=== PATIENT | female | born 1970 | race Caucasian/White ===

== ENCOUNTER 2021-11-29 09:44 | Emergency (ER) | payer OTHER ==
[~2021-11-29] VITALS: Ht 149.9 cm; Wt 81.7 kg
[2021-11-29] MEDS ORDERED: LEVSOD100 PO (10:58)
[2021-11-29] MEDS ORDERED: FLUT1DIS5 INH (10:58)
[2021-11-29] MEDS ORDERED: HYDR10 PO (10:58)
[2021-11-29] MEDS ORDERED: Flonase 0.05% N16 GM (10:58)
[2021-11-29] MEDS ORDERED: GABA300 PO (10:59)
[2021-11-29] MEDS ORDERED: SUCR1 PO (10:59)
[2021-11-29] MEDS ORDERED: Budeprion Xl300 MG PO (10:59)
[2021-11-29] MEDS ORDERED: MONT10T PO (10:59)
[2021-11-29] MEDS ORDERED: BASAGLAR K100 UNIT/1 SC (10:59)
[2021-11-29] MEDS ORDERED: POTCHL20ER PO (11:00)
[2021-11-29] MEDS ORDERED: METO50 PO (11:00)
[2021-11-29] MEDS ORDERED: MAGCHL64ER PO (11:01)
[2021-11-29] MEDS ORDERED: SENNA LAXATIVE8.6 MG PO (11:01)
[2021-11-29] MEDS ORDERED: ATOR80 PO (11:01)
[2021-11-29] MEDS ORDERED: HUMALOG KW100 UNIT/1 SC (11:02)
[2021-11-29] MEDS ORDERED: LIOT5 PO (11:02)
[2021-11-29] MEDS ORDERED: METCAR750 PO (11:02)
[2021-11-29] MEDS ORDERED: DULO30 PO (11:03)
[2021-11-29] MEDS ORDERED: AMIT25 PO (11:03)
[2021-11-29] MEDS ORDERED: DERMACINRX FOL1 EAC2 PO (11:03)
[2021-11-29] MEDS ORDERED: OMEP20ER PO (11:04)
[2021-11-29] MEDS ORDERED: LOSA50 PO (11:04)
[2021-11-29] MEDS ORDERED: TORSE20 PO (11:04)
[2021-11-29] MEDS ORDERED: ALBU90OI INH (11:04)
[2021-11-29] MEDS ORDERED: AMLO5 PO (11:04)
[2021-11-29] MEDS ORDERED: ESTRADIOL BENZOA PO (11:05)
[2021-11-29] MEDS ORDERED: QVAR REDIHALE10.6 G3 INH (11:05)
[2021-11-29] MEDS ORDERED: HYDACE10B PO (13:35)
== END 2021-11-29 15:23 | disposition home or self-care (01) ==
LOC: ER 09:44
DX: S32.019A Unspecified fracture of first lumbar vertebra, initial encounter for closed fracture (principal); V43.53XA Car driver injured in collision with pick-up truck in traffic accident, initial encounter; Z88.0 Allergy status to penicillin; Z88.5 Allergy status to narcotic agent; Z88.8 Allergy status to other drugs, medicaments and biological substances; E11.9 Type 2 diabetes mellitus without complications; I50.9 Heart failure, unspecified
CPT/HCPCS: 72128; 72131; 72148; 72170; 96374; 96375; 96376; 99285-25; A9270; J1170; J2270; J2405; J3360

== ENCOUNTER 2021-12-23 20:05 | Emergency (ER) | payer OTHER ==
[~2021-12-23] VITALS: Ht 149.9 cm; Wt 72.6 kg
[~2021-12-23 20:05] MED LIST: ALBU90OI INH; AMIT25 PO; AMLO5 PO; ATOR80 PO; BASAGLAR K100 UNIT/1 SC; Budeprion Xl300 MG PO; DERMACINRX FOL1 EAC2 PO; DULO30 PO; ESTRADIOL BENZOA PO; FLUT1DIS5 INH; Flonase 0.05% N16 GM; GABA300 PO; HUMALOG KW100 UNIT/1 SC; HYDACE10B PO; HYDR10 PO; LEVSOD100 PO; LIOT5 PO; LOSA50 PO; MAGCHL64ER PO; METCAR750 PO; METO50 PO; MONT10T PO; OMEP20ER PO; POTCHL20ER PO; QVAR REDIHALE10.6 G3 INH; SENNA LAXATIVE8.6 MG PO; SUCR1 PO; TORSE20 PO
[2021-12-23 21:21] LABS: BASOPHILS ABSOLUTE AUTO 0.14 K/mm3 (0.00-0.23); BASOPHILS PERCENT AUTO 1 % (0-2); EOSINOPHILS ABSOLUTE AUTO 0.38 K/mm3 (0.00-0.68); EOSINOPHILS PERCENT AUTO 4 % (0-6); Hematocrit 38.1 % (33.0-51.0); Hemoglobin 12.9 g/dL (11.5-16.0); IMMATURE GRAN ABSOLUTE AUTO 0.04 K/mm3 (0.00-0.10); IMMATURE GRAN PERCENT AUTO 0 % (0-1); LYMPHOCYTES ABSOLUTE AUTO 1.48 K/mm3 (0.84-5.20); LYMPHOCYTES PERCENT AUTO 14 % (21-46); MONOCYTES ABSOLUTE AUTO 0.36 K/mm3 (0.16-1.47); MONOCYTES PERCENT AUTO 3 % (4-13); Mean Corpuscular HGB 30.6 pg (26.0-34.0); Mean Corpuscular HGB Conc 33.9 g/dL (31.5-36.5); Mean Corpuscular Volume 90 fL (80-100); Mean Platelet Volume 9.7 fL (9.1-12.4); NEUTROPHILS ABSOLUTE AUTO 8.41 K/mm3 (1.96-9.15); NEUTROPHILS PERCENT AUTO 78 % (41-73); Platelet Count 245 K/mm3 (150-400); RDW Coefficient Variation 15.1 % (11.7-14.2); RDW Standard Deviation 49.1 fL (35.1-46.3); Red Blood Cell Count 4.22 M/mm3 (3.80-5.20); White Blood Cell Count 10.81 K/mm3 (4.00-11.30)
[2021-12-23 21:39] LABS: Alanine Aminotransfer (ALT/SGP 21 U/L (12-78); Albumin, Blood 3.3 g/dL (3.4-5.0); Albumin/Globulin Ratio 0.8 (0.8-1.8); Alk Phos 143 U/L (50-136); Anion Gap 7 mmol/L (6-16); Aspartate Aminotrans (AST/SGOT 11 U/L (12-37); Bilirubin, Total 0.5 mg/dL (0.1-1.0); Blood Urea Nitrogen 25 mg/dL (8-24); Bun/Creatinine Ratio 33.2 (12.0-20.0); CO2, Blood 28 mmol/L (21-32); Calcium, Blood 8.8 mg/dL (8.5-10.1); Chloride, Blood 102 mmol/L (98-108); Creatinine, Blood 0.75 mg/dL (0.40-1.00); Globulin, Blood 4.3 g/dL (2.2-4.0); Glomerular Filtration Rate >60 (60-); Glucose, Blood 243 mg/dL (70-99); Sodium, Blood 137 mmol/L (136-145); Total Protein, Blood 7.6 g/dL (6.4-8.2)
[2021-12-24 01:23] LABS: Influenza A, PCR NEGATIVE (NEGATIVE); Influenza B, PCR NEGATIVE (NEGATIVE); Resp Syncytial Virus, PCR NEGATIVE (NEGATIVE); SARS-Cov-2 (COVID-19) PCR, MMC NEGATIVE (NEGATIVE)
[2021-12-24] MEDS ORDERED: METO10 PO (01:40)
== END 2021-12-24 02:13 | disposition home or self-care (01) ==
LOC: ER 20:05
PROVIDERS: Physician Assistant; Student in an Organized Health Care Education/Training Program
DX: B34.9 Viral infection, unspecified (principal); E11.65 Type 2 diabetes mellitus with hyperglycemia; M54.50 Low back pain, unspecified; G89.29 Other chronic pain; R10.9 Unspecified abdominal pain; I50.9 Heart failure, unspecified; Z88.0 Allergy status to penicillin; Z88.5 Allergy status to narcotic agent; Z88.8 Allergy status to other drugs, medicaments and biological substances; Z79.899 Other long term (current) drug therapy; Z79.4 Long term (current) use of insulin
CPT/HCPCS: 0241U; 36415; 70450; 71045; 74177; 80053; 83690; 83880; 84484; 85025; 93005; 93010; 96365; 96375; 99285-25; A9270; J1885; J2765; J3475; Q9967

== ENCOUNTER → 2022-04-20 | Outpatient (CLI) | payer OTHER ==
[~2022-04-20] MED LIST changes: +METO10 PO
[2022-04-21 12:14] LABS: Candida species (DNA Probe) Positive (NEGATIVE); G. vaginalis (DNA Probe) Negative (NEGATIVE); T. vaginalis (DNA Probe) Negative (NEGATIVE)
== END | disposition home or self-care (01) ==
LOC: LAB SHORT 13:23 → LAB 13:23
PROVIDERS: Nurse Practitioner Family
DX: N89.8 Other specified noninflammatory disorders of vagina (principal); R30.9 Painful micturition, unspecified
CPT/HCPCS: 87086; 87480; 87510; 87660

== ENCOUNTER 2022-10-05 09:52 | Inpatient (IN) | payer OTHER ==
[~2022-10-05] VITALS: Ht 149.9 cm; Wt 95.5 kg
[2022-10-05 10:49] LABS: Base Excess Venous 1.6 mmol/L; Bicarbonate Venous 24.7 mmol/L (24.0-30.0); PCO2 Venous 39.3 mmHg (38-42); pH Blood Venous 7.43 (7.34-7.37)
[2022-10-05 11:10] LABS: BASOPHILS ABSOLUTE AUTO 0.13 K/mm3 (0.00-0.23); BASOPHILS PERCENT AUTO 1 % (0-2); EOSINOPHILS ABSOLUTE AUTO 0.77 K/mm3 (0.00-0.68); EOSINOPHILS PERCENT AUTO 7 % (0-6); Hematocrit 42.8 % (33.0-51.0); Hemoglobin 14.9 g/dL (11.5-16.0); IMMATURE GRAN ABSOLUTE AUTO 0.05 K/mm3 (0.00-0.10); IMMATURE GRAN PERCENT AUTO 1 % (0-1); LYMPHOCYTES ABSOLUTE AUTO 2.53 K/mm3 (0.84-5.20); LYMPHOCYTES PERCENT AUTO 23 % (21-46); MONOCYTES ABSOLUTE AUTO 0.54 K/mm3 (0.16-1.47); MONOCYTES PERCENT AUTO 5 % (4-13); Mean Corpuscular HGB 29.5 pg (26.0-34.0); Mean Corpuscular HGB Conc 34.8 g/dL (31.5-36.5); Mean Corpuscular Volume 85 fL (80-100); Mean Platelet Volume 9.7 fL (9.1-12.4); NEUTROPHILS ABSOLUTE AUTO 7.07 K/mm3 (1.96-9.15); NEUTROPHILS PERCENT AUTO 64 % (41-73); Platelet Count 264 K/mm3 (150-400); RDW Coefficient Variation 13.6 % (11.7-14.2); RDW Standard Deviation 41.8 fL (35.1-46.3); Red Blood Cell Count 5.05 M/mm3 (3.80-5.20); White Blood Cell Count 11.09 K/mm3 (4.00-11.30)
[2022-10-05 11:14] LABS: Albumin, Blood 2.9 g/dL (3.4-5.0); Albumin/Globulin Ratio 0.6 (0.8-1.8); Bilirubin, Total 0.4 mg/dL (0.1-1.0); Creatinine, Blood 0.5 mg/dL (0.40-1.00); Globulin, Blood 4.6 g/dL (2.2-4.0); Potassium, Blood 4.6 mmol/L (3.5-5.5); Total Protein, Blood 7.5 g/dL (6.4-8.2)
[2022-10-05 12:29] LABS: Influenza A, PCR NEGATIVE (NEGATIVE); Influenza B, PCR NEGATIVE (NEGATIVE); Resp Syncytial Virus, PCR NEGATIVE (NEGATIVE); SARS-Cov-2 (COVID-19) PCR, MMC NEGATIVE (NEGATIVE)
[2022-10-05 15:44] LABS: PCO2 Arterial 20.7 mmHg (35-45); PO2 Arterial 104 mmHg (80-100); pH Blood Arterial 7.52 (7.35-7.45)
[2022-10-05] MEDS ORDERED: BASAGLAR K100 UNIT/1 SC (16:24)
[2022-10-05] MEDS ORDERED: ALOGLIPTIN25 M7 PO (16:25)
--- NOTE | 2022-10-05 17:48 | NUR ---
PCU ADMIT / END OF SHIFT NOTE PT BROUGHT TO PCU-12 BY KAELA FROM ER @ APPROX 1600. PT SLID OVER FROM [facility] TO PCU BED BY 4 STAFF MEMBERS W/ RT MANAGING BIPAP. PT WEARING BIPAP: 07/31, FIO2 21%, RR 30s UPON ARRIVAL. MONITOR SHOWING ST, HR 100-110s. PT SETTLED INTO RM. PT CALM, RR 20s, PT REQUESTING BRIEF BREAK FROM BIPAP FOR DRINK. BIPAP REMOVED, PT ENCOURAGED TO TAKE SMALL SLOW SIP. PT TOOK SMALL SIP BUT BEGAN COUGHING HARSHLY & FACE TURNING RED. DRINK REMOVED FROM RM. PT INFORMED WILL HAVE TO WAIT TO RESUME ORAL INTAKE UNTIL PT SAFE FOR SWALLOWING. PT UNDERSTANDING. PT NO LONGER COUGHING. BIPAP REAPPLIED. PT LATER ANXIOUS & UPSET ABOUT NOT BEING ALLOWED TO DRINK AT THIS TIME. RR 50s. PT REQUIRING COACHING TO DEEP BREATH. PT UPSET STATING "I'LL ONLY GET WORSE IF I DON'T HAVE A DRINK! THIS IS RIDICULOUS!" PT EVENTUALLY CALM & THEN APOLOGIZING TO STAFF. BIPAP REMAINS IN PLACE. RR 20s-30s. S/O AT BEDSIDE.
--- NOTE | 2022-10-05 22:06 | NUR ---
ASSUMPTION OF CARE 1899 THIS RN ASSUMED CARE OF PT AT 1900. REPORT FROM MARTIN PANG. PT SITTING UP IN BED, SIGNIFICANT OTHER AT BEDSIDE. BIPAP IN PLACE. PT EXTREMELY ANXIOUS; STATING "I NEED TO GET THIS OFF" AND "I NEED SOMETHING TO DRINK". THIS RN AND DAYSHIFT RN PROVIDED EDUCATION ON BIPAP USE, SAFETY AND SITUATION. PT STATES "I NEED THIS OFF", NOT RECEPTIVE TO EDUCATION. PT STATES "IF I WAKE UP AND LEAVE IN THE MIDDLE OF THE NIGHT THEN YOU KNOW WHY". THIS RN PROVIDED THERAPEUTIC LISTENING WELL EDUCATION. AFTER A WHILE, PT WAS ABLE TO CALM DOWN SOME. S.O LEFT HOME. VSS. PT A&O X4. PT MORE INTERACTIVE AND ABLE TO HOLD CONVERSATION WELL RESPOND TO CARE. CALL LIGHT IN REACH AND BED IN LOWEST POSITION. PT EDUCATED ON FALL PREVENTION, SAFETY AND CALL LIGHT USE.
--- NOTE | 2022-10-05 22:10 | NUR ---
UPDATE 2029 PT GIVEN ONE TIME DOSE OF ATIVAN, 0.5 MG FOR ANXIETY. AT THIS TIME RT ALSO IN PT'S ROOM FOR BREATHING TX, PT REPORTS THAT BIPAP "FEELS LIKE TOO MUCH PRESSURE AND I AM NOT ABLE TO BREATH CORRECTLY ON MY OWN". PT CHECKED SETTINGS AND CHANGED SETTINGS TO CPAP. PT REPORTS THIS "FEELS MUCH BETTER". PT RR 19 AND SEEMS TO BE TOLERATING WELL. PT NOW LESS ANXIOUS AND LESS UPSET. PT ABLE TO TAKE PM MEDICATIONS W/WATER. PT TOLERATED WATER WELL, NO CHOKING OR SIGNS OF ASPIRATION. PT UP TO BATHROOM W/PCT AND SUPERVISION. PT TOLERATED WELL; WOB WNL. DENIES SOB, LIGHTHEADNESS OR DIZZINESS. PT AMBULATED WELL.
--- NOTE | 2022-10-05 23:48 | NUR ---
UPDATE 0000 VSS. PT RELAXED AND RESTING, PT APPEARS TO BE FREE OF ANXIETY AT THIS TIME. PT REPORTS HEADACHE 04/04; MEDICATED PER EMAR. PT DENIES DIFFICULTY BREATHING. PT NOW ON HOME CPAP SET UP BY RT. PT DOES NOT APPEAR TO BE IN RESPIRATORY DISTRESS AT THIS TIME RR AND WOB WNL. PT REQUESTING HER MUSCLE RELAXERS AND SLEEP MEDICATION AT THIS TIME. PT DOES NOT REPORT ANY OTHER NEEDS OR CONCERNS AT THIS TIME. CALL LIGHT IN REACH AND BED IN LOWEST POSITION.
--- NOTE | 2022-10-06 00:26 | NUR ---
THIS RN SPOKE TO RESIDENT ABOUT PT'S AMITRIPTYLINE PT WAS REQUESTING IT FOR TONIGHT. NEW ORDERS FOR ONE TIME DOSE NOW.
[2022-10-06 04:57] LABS: Bun/Creatinine Ratio 33.6 (12.0-20.0); Calcium, Blood 8.8 mg/dL (8.5-10.1); Creatinine, Blood 0.48 mg/dL (0.40-1.00); Potassium, Blood 4.4 mmol/L (3.5-5.5)
--- NOTE | 2022-10-06 04:57 | NUR ---
SHIFT SUMMARY PT REMAINS A&0 X4. PT RESTED ON AND OFF THROUGHOUT SHIFT. PT ON CPAP SETTINGS PER RT, RT SET UP HOME CPAP MACHINE AND PT WORE THAT FOR LAST PART OF THIS SHIFT. PT RR AND WOB WNL. PT ANXIETY DECREASED SINCE BEING OFF BIPAP. VSS. NO ACUTE CHANGES DURING THIS SHIFT. PT CURRENTLY APPEARS TO BE SLEEPING IN ROOM. CALL LIGHT IN REACH AND BED IN LOWEST POSITION. PT TOLERATING DRINKING FLUIDS WELL. PT REPORTED HEADACHE 8/10; MEDICATED PER EMAR X1. PT REPORTS HEADACHE HAS RESOLVED SINCE. WILL UPDATE ONCOMING RN
--- NOTE | 2022-10-06 18:50 | NUR ---
END OF SHIFT PT A&O X4. VSS. SPO2 > 92% ON RA. PT REPORTING "I FEEL 100% BETTER." PT DENYING PAIN/DISCOMFORT. PT DENYING SOB, BUT DOES REPORT "I JUST HAVE BEEN WHEEZING & COUGHING A LITTLE BIT." WHEEZE & OCCASSIONAL NONPRODUCTIVE COUGH NOTED. PT CBG ELEVATED & MEDICATED PER EMAR. NO EVENTS T/O SHIFT.
--- NOTE | 2022-10-06 19:39 | NUR ---
ASSUMPTION OF CARE THIS RN ASSUMED CARE OF PT AT 1900. REPORT FROM MARTIN PANG. PT RESTING IN BED, REQUEST TO TAKE A SHOWER. PT APPEARS MUCH MORE CALM FROM PREVIOUS SHIFTS, NO ANXIETY. VSS. RR WNL AND WOB SIGNIFICANTLY DECREASED FROM PREVIOUS. PT STATES SHE "FEELS MUCH BETTER". REPORTS NOTICING SOME WHEEZING AND COUGHING POST BREATHING TX, BUT THEN "IT CLEARS UP AFTER A WHILE". PT DENIES PAIN, SOB, CP OR PRESSURE. PT DENIES ANY NEEDS OR CONCERNS AT THIS TIME. PT'S SIGNIFICANT OTHER AT BEDSIDE VISITING. CALL LIGHT IN REACH AND BED IN LOWEST POSITION.
--- NOTE | 2022-10-06 21:55 | NUR ---
UPDATE HS CBG WAS 354; THIS RN NOTIFIED RESIDENT. NO NEW ORDERS AT THIS TIME, JUST TO PROCEED WITH THE HIGH SLIDING SCALE COVERAGE AND 40 U OF INSULIN GLARGINE PER EMAR.
--- NOTE | 2022-10-06 22:00 | NUR ---
UPDATE PT RESTING IN ROOM, WATCHING TV. PT ON PHONE W/FAMILY. PT RESPOSITIONING INDEPENDENTLY AND DENIES ANY NEEDS AT THIS TIME. PT REMAINS CALM AND PLEASANT DURING INTERACTIONS. CALL LIGHT IN REACH AND BED IN LOWEST POSITION.
[2022-10-07 04:23] LABS: Albumin, Blood 2.7 g/dL (3.4-5.0); Anion Gap 6 mmol/L (6-16); Blood Urea Nitrogen 23 mg/dL (8-24); Bun/Creatinine Ratio 47.3 (12.0-20.0); CO2, Blood 23 mmol/L (21-32); Calcium, Blood 8.7 mg/dL (8.5-10.1); Chloride, Blood 102 mmol/L (98-108); Creatinine, Blood 0.49 mg/dL (0.40-1.00); Glomerular Filtration Rate 113 (60-); Glucose, Blood 366 mg/dL (70-99); Phosphorus, Blood 3.3 mg/dL (2.5-4.9); Potassium, Blood 4.5 mmol/L (3.5-5.5); Sodium, Blood 131 mmol/L (136-145)
--- NOTE | 2022-10-07 06:34 | NUR ---
SHIFT SUMMARY PT REMAINS A&O, PLEASANT AND COOPERATIVE WITH CARE. PT DID NOT HAVE ANY EPISODES OF ANXIETY THIS SHIFT. PT USED HOME CPAP THROUGHOUT NIGHT. VSS. PT HAD SHOWER AT BEGINNING OF SHIFT. TOLERATED WELL. PT UP IN ROOM OCCASSIONALLY TO AMBULATE AND USE BATHROOM. HS CBG 354; COVERAGE PER EMAR, WELL NOTIFICATION TO RESIDENT. SEE NURSING NOTE REGARDING. NO ACUTE CHANGES THROUGHOUT THIS SHIFT. WILL UPDATE ONCOMING RN. CALL LIGHT IN REACH AND BED IN LOWEST POSITION
[2022-10-07] MEDS ORDERED: ATROVENT INH (11:46)
[2022-10-07] MEDS ORDERED: Ventolin5 MG/1 ML INH (11:47)
[2022-10-07] MEDS ORDERED: NYSTATIN100000 U10 MT (11:47)
[2022-10-07] MEDS ORDERED: Prednisone10 MG PO (11:48)
--- NOTE | 2022-10-07 12:38 | NUR ---
DISCHARGE SUMMARY PT WAS TRANSPORTED BY WHEELCHAIR TO PERSONAL VEHICLE. ALL PERSONAL BELONGINGS WERE IN THE POSSESSION OF THE PT'S SPOUSE AND DISCHARGE INSTRUCTIONS WERE IN THE PT'S POSSESSION AT THE TIME OF DISCHARGE. PT STATED AN UNDERSTANDING OF ALL DISCHARGE INSTRUCTION. ALL QUESTIONS WERE ANSWERED AND CONCERNS ADDRESSED PRIOR TO DISCHARGE.
== END 2022-10-07 12:26 | disposition home or self-care (01) | DRG 202 ==
LOC: ER 09:52 → PCU 15:07
PROVIDERS: Student in an Organized Health Care Education/Training Program; ADMIT Internal Medicine
PROC: 5A09357 Assistance with Respiratory Ventilation, Less than 24 Consecutive Hours, Continuous Positive Airway Pressure (ICD-10-PCS; principal; 2022-10-05)
DX: J45.901 Unspecified asthma with (acute) exacerbation (principal); E87.1 Hypo-osmolality and hyponatremia; J44.1 Chronic obstructive pulmonary disease with (acute) exacerbation; R06.03 Acute respiratory distress; G47.33 Obstructive sleep apnea (adult) (pediatric); E88.09 Other disorders of plasma-protein metabolism, not elsewhere classified; E11.65 Type 2 diabetes mellitus with hyperglycemia; F41.9 Anxiety disorder, unspecified; F32.A Depression, unspecified; E11.42 Type 2 diabetes mellitus with diabetic polyneuropathy; I50.9 Heart failure, unspecified; I11.0 Hypertensive heart disease with heart failure; E11.43 Type 2 diabetes mellitus with diabetic autonomic (poly)neuropathy; K31.84 Gastroparesis; E03.9 Hypothyroidism, unspecified; Z20.822 Contact with and (suspected) exposure to COVID-19; Z96.643 Presence of artificial hip joint, bilateral; Z87.891 Personal history of nicotine dependence; Z99.81 Dependence on supplemental oxygen; Z98.890 Other specified postprocedural states; Z90.710 Acquired absence of both cervix and uterus; Z90.721 Acquired absence of ovaries, unilateral; Z98.51 Tubal ligation status; Z87.19 Personal history of other diseases of the digestive system; Z88.0 Allergy status to penicillin; Z88.8 Allergy status to other drugs, medicaments and biological substances; Z88.5 Allergy status to narcotic agent; Z79.52 Long term (current) use of systemic steroids; Z79.899 Other long term (current) drug therapy; Z79.4 Long term (current) use of insulin; Z79.02 Long term (current) use of antithrombotics/antiplatelets; Z79.51 Long term (current) use of inhaled steroids; Z79.891 Long term (current) use of opiate analgesic; Z88.2 Allergy status to sulfonamides
CPT/HCPCS: 0241U; 36415; 36600; 71045; 80048; 80053; 80069; 82803; 82947; 83880; 84484; 85025; 93005; 93010; 94640; 94644; 94660; 94664; 94760; 94762; 96365; 96366; 96375; 99285-25; A9270; J1650; J1815; J2060; J2405; J2920; J2930; J3475

== ENCOUNTER 2024-02-05 12:16 | Emergency (ER) | payer OTHER ==
[~2024-02-05] VITALS: Ht 149.9 cm; Wt 75.3 kg
[~2024-02-05 12:16] MED LIST changes: +AFRIN15 M6; +ALOGLIPTIN25 M7 PO; +ATROVENT HFA12.9 GM INH; +ATROVENT INH; +BACITRACIN ZIN1 EAC1 TOP; +CIPR500 PO; +ESTRADIOL1 MG PO; +EUTHYROX50 MCG PO; +MAGNESIUM OXID500 MG PO; -METCAR750 PO; +NYSTATIN100000 U10 MT; +Prednisone10 MG PO; +Prednisone20 MG PO; +REGLAN1013 PO; +Robaxin750 MG PO; +Synthroid200 MCG PO; +TRULICITY3 MG/0.5 M SC; +Ventolin5 MG/1 ML INH
[2024-02-05 13:33] LABS: BASOPHILS ABSOLUTE AUTO 0.03 K/mm3 (0.00-0.23); BASOPHILS PERCENT AUTO 0 % (0-2); EOSINOPHILS PERCENT AUTO 0 % (0-6); Hematocrit 44.2 % (33.0-51.0); Hemoglobin 15.1 g/dL (11.5-16.0); IMMATURE GRAN ABSOLUTE AUTO 0.01 K/mm3 (0.00-0.10); IMMATURE GRAN PERCENT AUTO 0 % (0-1); LYMPHOCYTES ABSOLUTE AUTO 2.26 K/mm3 (0.84-5.20); LYMPHOCYTES PERCENT AUTO 30 % (21-46); MONOCYTES ABSOLUTE AUTO 0.29 K/mm3 (0.16-1.47); MONOCYTES PERCENT AUTO 4 % (4-13); Mean Corpuscular HGB 29.3 pg (26.0-34.0); Mean Corpuscular HGB Conc 34.2 g/dL (31.5-36.5); Mean Corpuscular Volume 86 fL (80-100); Mean Platelet Volume 9.7 fL (9.1-12.4); NEUTROPHILS ABSOLUTE AUTO 5.07 K/mm3 (1.96-9.15); NEUTROPHILS PERCENT AUTO 66 % (41-73); Platelet Count 205 K/mm3 (150-400); RDW Coefficient Variation 15.2 % (11.7-14.2); RDW Standard Deviation 47.3 fL (35.1-46.3); Red Blood Cell Count 5.15 M/mm3 (3.80-5.20); White Blood Cell Count 7.66 K/mm3 (4.00-11.30)
[2024-02-05 14:14] LABS: Albumin, Blood 3.6 g/dL (3.4-5.0); Albumin/Globulin Ratio 0.9 (0.8-1.8); Bilirubin, Total 0.7 mg/dL (0.1-1.0); Bun/Creatinine Ratio 18.2 (12.0-20.0); Calcium, Blood 9.4 mg/dL (8.5-10.1); Creatinine, Blood 0.55 mg/dL (0.40-1.00); Globulin, Blood 3.9 g/dL (2.2-4.0); Total Protein, Blood 7.5 g/dL (6.4-8.2)
[2024-02-05 15:59] LABS: Source, Urine Clean Catch
[2024-02-05 16:08] LABS: Appearance, Urine Hazy (Clear); Bilirubin, Urine Neg (Neg); Blood, Urine Neg (Neg); Color, Urine Yellow (P-Yellow); Glucose Qualitative, Urine 4+ (Neg); Ketones, Urine 4+ (Neg); Leukocyte Esterase, Urine 3+ (Neg); Nitrite, Urine Neg (Neg); Protein, Urine Neg (Neg); Urobilinogen, Urine NORM (Normal)
[2024-02-05 16:17] LABS: Bacteria Many /hpf; Red Blood Cells, Urine 0-2 /hpf (0-2); Squamous Epithelial Cells Mod /hpf (Few)
[2024-02-05 16:21] LABS: Yeast/Fungi Urine Rare /hpf
[2024-02-05] MEDS ORDERED: Metoclopramide HCl 10 MG Tab PO ONE (16:50)
[2024-02-05 17:02] LABS: Bacterial Vaginosis PCR Negative (NEGATIVE); Candida Group, PCR NOT DETECTED (NOT DETECT)
[2024-02-05 17:13] LABS: Candida glabrata-krusei, PCR DETECTED (NOT DETECT)
[2024-02-05] MEDS ORDERED: METO10 PO (17:29)
[2024-02-05] MEDS ORDERED: BANOPHEN25 MG PO (17:33)
[2024-02-05] MEDS ORDERED: MICOTRIN AC85 G4 TOP (17:33)
[2024-02-05 17:48] VITALS: BP 145/87
== END 2024-02-05 17:49 | disposition home or self-care (01) ==
LOC: ER 12:16
PROVIDERS: Student in an Organized Health Care Education/Training Program
DX: E11.43 Type 2 diabetes mellitus with diabetic autonomic (poly)neuropathy (principal); K31.84 Gastroparesis; B37.9 Candidiasis, unspecified; E03.9 Hypothyroidism, unspecified; Z79.899 Other long term (current) drug therapy; Z79.52 Long term (current) use of systemic steroids; Z79.4 Long term (current) use of insulin; Z79.818 Long term (current) use of other agents affecting estrogen receptors and estrogen levels; Z88.0 Allergy status to penicillin; Z88.2 Allergy status to sulfonamides; Z88.1 Allergy status to other antibiotic agents; Z88.5 Allergy status to narcotic agent; Z88.8 Allergy status to other drugs, medicaments and biological substances
CPT/HCPCS: 80053; 81001; 83690; 85025; 87086; 87481; 87661; 87801; 93005; 93010; 99285-25; A9270

== ENCOUNTER 2024-06-12 00:47 | Emergency (ER) | payer OTHER ==
[~2024-06-12] VITALS: Ht 162.6 cm; Wt 72.6 kg
[~2024-06-12 00:47] MED LIST changes: +BANOPHEN25 MG PO; +BENZ100A PO; +MICOTRIN AC85 G4 TOP; +ONDA4ODT MM
[2024-06-12 01:24] LABS: BASOPHILS ABSOLUTE AUTO 0.02 K/mm3 (0.00-0.23); BASOPHILS PERCENT AUTO 0 % (0-2); EOSINOPHILS ABSOLUTE AUTO 0.11 K/mm3 (0.00-0.68); EOSINOPHILS PERCENT AUTO 2 % (0-6); Hematocrit 37.3 % (33.0-51.0); Hemoglobin 13.3 g/dL (11.5-16.0); IMMATURE GRAN ABSOLUTE AUTO 0.02 K/mm3 (0.00-0.10); IMMATURE GRAN PERCENT AUTO 0 % (0-1); LYMPHOCYTES ABSOLUTE AUTO 2.74 K/mm3 (0.84-5.20); LYMPHOCYTES PERCENT AUTO 46 % (21-46); MONOCYTES ABSOLUTE AUTO 0.35 K/mm3 (0.16-1.47); MONOCYTES PERCENT AUTO 6 % (4-13); Mean Corpuscular HGB 30.5 pg (26.0-34.0); Mean Corpuscular HGB Conc 35.7 g/dL (31.5-36.5); Mean Corpuscular Volume 86 fL (80-100); Mean Platelet Volume 10.4 fL (9.1-12.4); NEUTROPHILS ABSOLUTE AUTO 2.75 K/mm3 (1.96-9.15); NEUTROPHILS PERCENT AUTO 46 % (41-73); Platelet Count 188 K/mm3 (150-400); RDW Coefficient Variation 13.3 % (11.7-14.2); RDW Standard Deviation 41.1 fL (35.1-46.3); Red Blood Cell Count 4.36 M/mm3 (3.80-5.20); White Blood Cell Count 5.99 K/mm3 (4.00-11.30)
[2024-06-12 01:39] LABS: Base Excess Venous -1.4 mmol/L; Bicarbonate Venous 23.6 mmol/L (24.0-30.0); PCO2 Venous 36.3 mmHg (38-42); pH Blood Venous 7.41 (7.34-7.37)
[2024-06-12 01:45] LABS: Beta-hydroxybutyrate 3.9 mg/dL (0.2-2.8); Magnesium, Blood 1.8 mg/dL (1.6-2.4)
[2024-06-12] MEDS ORDERED: NS 1,000 ML IV ONE (01:50)
[2024-06-12 01:52] LABS: Albumin, Blood 3.3 g/dL (3.4-5.0); Albumin/Globulin Ratio 0.9 (0.8-1.8); Bilirubin, Total 0.5 mg/dL (0.1-1.0); Bun/Creatinine Ratio 22.2 (12.0-20.0); Calcium, Blood 8.9 mg/dL (8.5-10.1); Creatinine, Blood 0.72 mg/dL (0.40-1.00); Globulin, Blood 3.5 g/dL (2.2-4.0); Phosphorus, Blood 3.8 mg/dL (2.5-4.9); Total Protein, Blood 6.8 g/dL (6.4-8.2)
[2024-06-12] MEDS ORDERED: Magnesium Sulf 2 GM/Water 50ML 50 ML IV ONE (02:00)
[2024-06-12] MEDS ORDERED: Acetaminophen 500 MG Tab PO ONE (02:20)
[2024-06-12 02:27] LABS: Source, Urine Clean Catch
[2024-06-12] MEDS ORDERED: Insulin Regular 100 UNIT/ML 10ML Vial SC ONE (02:30)
[2024-06-12 02:46] LABS: Bilirubin, Urine Neg (Neg); Blood, Urine 1+ (Neg); Glucose Qualitative, Urine 4+ (Neg); Ketones, Urine Neg (Neg); Leukocyte Esterase, Urine Neg (Neg); Nitrite, Urine Neg (Neg); Protein, Urine Neg (Neg); Urobilinogen, Urine NORM (Normal)
[2024-06-12 03:02] LABS: Appearance, Urine Clear (Clear); Color, Urine Pale Yellow (P-Yellow)
[2024-06-12 03:03] LABS: Bacteria Few /hpf; Red Blood Cells, Urine 0-2 /hpf (0-2); Squamous Epithelial Cells Few /hpf (Few); White Blood Cells, Urine 0-2 /hpf (0-5)
[2024-06-12] MEDS ORDERED: Insulin Regular 100 Unit/ML 1ML Dose IV ONE (04:05)
[2024-06-12] MEDS ORDERED: DiphenhydrAMINE HCl 50 MG/ML 1ML Vial IV ONE (04:30)
[2024-06-12] MEDS ORDERED: Prochlorperazine Edisylate 10 mg Vial IV ONE (04:30)
[2024-06-12 06:45] VITALS: BP 125/85
[2024-06-12] MEDS ORDERED: ONDA4ODT MM (06:46)
== END 2024-06-12 06:58 | disposition home or self-care (01) ==
LOC: ER 00:47
PROVIDERS: Emergency Medicine
DX: E11.65 Type 2 diabetes mellitus with hyperglycemia (principal); R11.2 Nausea with vomiting, unspecified; E03.9 Hypothyroidism, unspecified; Z79.4 Long term (current) use of insulin; Z79.52 Long term (current) use of systemic steroids; Z79.899 Other long term (current) drug therapy; Z88.0 Allergy status to penicillin; Z88.2 Allergy status to sulfonamides; Z88.1 Allergy status to other antibiotic agents; Z88.5 Allergy status to narcotic agent; Z88.8 Allergy status to other drugs, medicaments and biological substances
CPT/HCPCS: 80053; 81001; 82010; 82803; 82947; 83605; 83690; 83735; 84100; 85025; 93005; 93010; 96365; 96375; 99285-25; A9270; J0780; J1200; J1815; J3475; J7030

== ENCOUNTER 2024-07-11 00:40 | Emergency (ER) | payer OTHER ==
[~2024-07-11] VITALS: Ht 149.9 cm; Wt 70.3 kg
[2024-07-11 01:21] LABS: BASOPHILS ABSOLUTE AUTO 0.02 K/mm3 (0.00-0.23); BASOPHILS PERCENT AUTO 0 % (0-2); EOSINOPHILS PERCENT AUTO 0 % (0-6); Hematocrit 36.4 % (33.0-51.0); Hemoglobin 13.1 g/dL (11.5-16.0); IMMATURE GRAN ABSOLUTE AUTO 0.01 K/mm3 (0.00-0.10); IMMATURE GRAN PERCENT AUTO 0 % (0-1); LYMPHOCYTES ABSOLUTE AUTO 2.08 K/mm3 (0.84-5.20); LYMPHOCYTES PERCENT AUTO 33 % (21-46); MONOCYTES ABSOLUTE AUTO 0.32 K/mm3 (0.16-1.47); MONOCYTES PERCENT AUTO 5 % (4-13); Mean Corpuscular Volume 86 fL (80-100); Mean Platelet Volume 9.8 fL (9.1-12.4); NEUTROPHILS ABSOLUTE AUTO 3.79 K/mm3 (1.96-9.15); NEUTROPHILS PERCENT AUTO 61 % (41-73); Platelet Count 170 K/mm3 (150-400); RDW Standard Deviation 43.5 fL (35.1-46.3); Red Blood Cell Count 4.22 M/mm3 (3.80-5.20); White Blood Cell Count 6.22 K/mm3 (4.00-11.30)
[2024-07-11 01:53] LABS: Base Excess Venous -0.4 mmol/L; Bicarbonate Venous 24.2 mmol/L (24.0-30.0); PCO2 Venous 37.7 mmHg (38-42); pH Blood Venous 7.42 (7.34-7.37)
[2024-07-11 02:01] LABS: Albumin, Blood 3.2 g/dL (3.4-5.0); Albumin/Globulin Ratio 0.9 (0.8-1.8); Bilirubin, Total 0.3 mg/dL (0.1-1.0); Bun/Creatinine Ratio 27.6 (12.0-20.0); Calcium, Blood 8.8 mg/dL (8.5-10.1); Creatinine, Blood 0.62 mg/dL (0.40-1.00); Globulin, Blood 3.4 g/dL (2.2-4.0); Potassium, Blood 4.4 mmol/L (3.5-5.5); Total Protein, Blood 6.6 g/dL (6.4-8.2)
[2024-07-11] MEDS ORDERED: Lactated Ringer's 1,000 ML IV ONE (02:35)
[2024-07-11] MEDS ORDERED: Insulin Regular 100 Unit/ML 1ML Dose IV ONE (03:35)
[2024-07-11 05:50] LABS: Source, Urine Clean Catch
[2024-07-11 06:00] LABS: Appearance, Urine Clear (Clear); Bilirubin, Urine Neg (Neg); Blood, Urine Neg (Neg); Color, Urine Yellow (P-Yellow); Glucose Qualitative, Urine 4+ (Neg); Ketones, Urine Neg (Neg); Leukocyte Esterase, Urine Neg (Neg); Nitrite, Urine Neg (Neg); Protein, Urine Neg (Neg); Specific Gravity, Urine 1.005 (1.003-1.022); Urobilinogen, Urine NORM (Normal); pH, Urine 6.5 (5.0-8.0)
[2024-07-11 06:33] VITALS: BP 132/76
== END 2024-07-11 06:35 | disposition home or self-care (01) ==
LOC: ER 00:40
PROVIDERS: Student in an Organized Health Care Education/Training Program
DX: E11.65 Type 2 diabetes mellitus with hyperglycemia (principal); E11.40 Type 2 diabetes mellitus with diabetic neuropathy, unspecified; J44.9 Chronic obstructive pulmonary disease, unspecified; E03.9 Hypothyroidism, unspecified; G47.33 Obstructive sleep apnea (adult) (pediatric); Z79.52 Long term (current) use of systemic steroids; Z79.4 Long term (current) use of insulin; Z88.0 Allergy status to penicillin; Z88.2 Allergy status to sulfonamides; Z88.1 Allergy status to other antibiotic agents; Z88.8 Allergy status to other drugs, medicaments and biological substances
CPT/HCPCS: 80053; 81003; 82803; 82947; 85025; 93005; 93010; J1815; J7120

== ENCOUNTER 2024-08-30 00:14 | Inpatient (IN) | payer OTHER ==
[~2024-08-30] VITALS: Ht 149.9 cm; Wt 74.0 kg
[2024-08-30 00:56] LABS: BASOPHILS ABSOLUTE AUTO 0.03 K/mm3 (0.00-0.23); BASOPHILS PERCENT AUTO 0 % (0-2); EOSINOPHILS PERCENT AUTO 0 % (0-6); Hematocrit 43.4 % (33.0-51.0); Hemoglobin 15.3 g/dL (11.5-16.0); IMMATURE GRAN ABSOLUTE AUTO 0.03 K/mm3 (0.00-0.10); IMMATURE GRAN PERCENT AUTO 0 % (0-1); LYMPHOCYTES ABSOLUTE AUTO 1.91 K/mm3 (0.84-5.20); LYMPHOCYTES PERCENT AUTO 23 % (21-46); MONOCYTES PERCENT AUTO 6 % (4-13); Mean Corpuscular HGB 30.8 pg (26.0-34.0); Mean Corpuscular HGB Conc 35.3 g/dL (31.5-36.5); Mean Corpuscular Volume 87 fL (80-100); Mean Platelet Volume 9.9 fL (9.1-12.4); NEUTROPHILS ABSOLUTE AUTO 5.69 K/mm3 (1.96-9.15); NEUTROPHILS PERCENT AUTO 70 % (41-73); Platelet Count 221 K/mm3 (150-400); RDW Coefficient Variation 13.7 % (11.7-14.2); RDW Standard Deviation 42.9 fL (35.1-46.3); Red Blood Cell Count 4.97 M/mm3 (3.80-5.20); White Blood Cell Count 8.16 K/mm3 (4.00-11.30)
[2024-08-30 01:19] LABS: Albumin, Blood 3.9 g/dL (3.4-5.0); Albumin/Globulin Ratio 0.9 (0.8-1.8); Bilirubin, Total 0.7 mg/dL (0.1-1.0); Bun/Creatinine Ratio 20.1 (12.0-20.0); Calcium, Blood 10.4 mg/dL (8.5-10.1); Creatinine, Blood 0.65 mg/dL (0.40-1.00); Globulin, Blood 4.3 g/dL (2.2-4.0); Potassium, Blood 4.8 mmol/L (3.5-5.5); Total Protein, Blood 8.2 g/dL (6.4-8.2)
[2024-08-30] MEDS ORDERED: Ondansetron HCl 2 MG / ML 2ML Vial IV PRN ×2 (02:35→08:20)
[2024-08-30] MEDS ORDERED: TRULICITY4.5 MG/0.5 SQ (02:53)
[2024-08-30] MEDS ORDERED: Synthroid300 MCG PO (02:57)
[2024-08-30] MEDS ORDERED: NS 1,000 ML IV SCH ×3 (03:00→03:40)
[2024-08-30 03:09] LABS: pH Blood Venous 7.19 (7.34-7.37)
[2024-08-30 03:10] LABS: Base Excess Venous -16.3 mmol/L; Bicarbonate Venous 13.3 mmol/L (24.0-30.0); PCO2 Venous 30.8 mmHg (38-42)
[2024-08-30] MEDS ORDERED: Potassium Chl 20MEQ/Water100ML 100 ML IV ONE (03:30)
[2024-08-30] MEDS ORDERED: Insulin Human Regular 100 UNIT in NS 100 ML IV SCH ×2 (03:30→03:45)
[2024-08-30 03:38] LABS: Beta-hydroxybutyrate 54.7 mg/dL (0.2-2.8)
[2024-08-30] MEDS ORDERED: Dextrose 50% 50 ML Syringe IV PRN (03:40)
[2024-08-30] MEDS ORDERED: FLU VACC TS2024-25(6MOS UP)/PF 45 MCG/0.5 ML SYRINGE IM ONE (03:40)
[2024-08-30] MEDS ORDERED: Ketorolac Tromethamine 30mg Vial IV ONE (03:40)
[2024-08-30] MEDS ORDERED: D5W-1/2NS 1,000 ML IV SCH (04:00)
[2024-08-30] MEDS ORDERED: Potassium Chl 10MEQ/Water100ML 100 ML IV SCH (04:00)
[2024-08-30] MEDS ORDERED: Methocarbamol 500 MG Tab PO PRN (04:25)
[2024-08-30] MEDS ORDERED: Benzonatate 100 MG Cap PO PRN (04:25)
[2024-08-30] MEDS ORDERED: DiphenhydrAMINE HCL 25 MG Cap PO PRN (04:35)
[2024-08-30] MEDS ORDERED: FentaNYL Citrate 50 MCG/ML 2 ML Injection IV PRN (04:45)
[2024-08-30] MEDS ORDERED: Albuterol 2.5 MG/3 ML VIAL INH PRN (04:55)
[2024-08-30] MEDS ORDERED: Ondansetron HCl 2 MG / ML 2ML Vial ONE (04:57)
[2024-08-30] MEDS ORDERED: Ipratropium Bromide INH 0.02% 0.5 mg/2.5ML Vial INH SCH ×2 (05:00→05:30)
[2024-08-30] MEDS ORDERED: Ondansetron HCl 2 MG / ML 2ML Vial IV ONE (05:00)
[2024-08-30] MEDS ORDERED: Ipratropium/Albuterol SulF 2.5-0.5MG/3 ML Amp INH SCH (05:20)
[2024-08-30] MEDS ORDERED: Omeprazole 20 MG CapCR PO SCH (06:00)
[2024-08-30] MEDS ORDERED: Levothyroxine Sodium 0.15 MG Tab PO SCH (06:00)
[2024-08-30 06:29] LABS: Bun/Creatinine Ratio 28.4 (12.0-20.0); Calcium, Blood 9.2 mg/dL (8.5-10.1); Creatinine, Blood 0.63 mg/dL (0.40-1.00); Potassium, Blood 4.3 mmol/L (3.5-5.5)
[2024-08-30] MEDS ORDERED: Sucralfate 1 GM Tab PO SCH (07:00)
[2024-08-30] MEDS ORDERED: Atorvastatin 40 MG Tab PO SCH (09:00)
[2024-08-30] MEDS ORDERED: Estradiol 1 MG Tab PO SCH (09:00)
[2024-08-30] MEDS ORDERED: buPROPion HCL 150 MG TAB.SR.12H PO SCH (09:00)
[2024-08-30] MEDS ORDERED: AmLODIPine Besylate 5 MG Tab PO SCH (09:00)
[2024-08-30] MEDS ORDERED: Losartan Potassium 50 MG Tab PO SCH (09:00)
[2024-08-30] MEDS ORDERED: Liothyronine Sodium 5 MCG Tab PO SCH (09:00)
[2024-08-30] MEDS ORDERED: Metoprolol Tartrate 50 MG Tab PO SCH (09:00)
[2024-08-30] MEDS ORDERED: Gabapentin 300 MG Cap PO SCH (09:00)
[2024-08-30] MEDS ORDERED: Magnesium Oxide 400 MG Tab PO SCH (09:00)
[2024-08-30] MEDS ORDERED: Clotrimazole 1% Cream 15 GM Tube TOP SCH (09:00)
[2024-08-30] MEDS ORDERED: Enoxaparin 40 MG/0.4 ML SYR SC SCH (09:00)
[2024-08-30] MEDS ORDERED: HydrALAZINE HCl 10 MG Tab PO SCH (09:00)
[2024-08-30] MEDS ORDERED: Montelukast Sodium 10 MG Tab PO SCH (09:00)
[2024-08-30] MEDS ORDERED: Nystatin 100,000 Unit/ML Susp 5 ML UDC MT SCH (09:00)
[2024-08-30 10:41] LABS: Bun/Creatinine Ratio 22.4 (12.0-20.0); Calcium, Blood 8.4 mg/dL (8.5-10.1); Creatinine, Blood 0.62 mg/dL (0.40-1.00); Potassium, Blood 4.2 mmol/L (3.5-5.5)
[2024-08-30 12:38] LABS: Source, Urine Clean Catch
[2024-08-30 12:41] LABS: Appearance, Urine Clear (Clear); Bilirubin, Urine Neg (Neg); Blood, Urine Neg (Neg); Color, Urine Yellow (P-Yellow); Glucose Qualitative, Urine 4+ (Neg); Ketones, Urine 4+ (Neg); Leukocyte Esterase, Urine Neg (Neg); Nitrite, Urine Neg (Neg); Protein, Urine 1+ (Neg); Urobilinogen, Urine NORM (Normal)
[2024-08-30 14:51] LABS: Bun/Creatinine Ratio 21.5 (12.0-20.0); Calcium, Blood 8.5 mg/dL (8.5-10.1); Creatinine, Blood 0.56 mg/dL (0.40-1.00); Potassium, Blood 3.8 mmol/L (3.5-5.5)
[2024-08-30] MEDS ORDERED: Insulin Glargine-Yfgn 100 Unit/mL 3 ML SYR SC ONE (15:45)
--- NOTE | 2024-08-30 17:26 | NUR ---
ATTEMPTED TO RECIEVE REPORT ON PT, WAS TOLD RN WOULD CALL THIS RN BACK. AWAITING CALL.
[2024-08-30] MEDS ORDERED: Insulin Glargine-Yfgn 100 Unit/mL 3 ML SYR SC SCH (18:00)
[2024-08-30 19:56] LABS: Bun/Creatinine Ratio 15.7 (12.0-20.0); Calcium, Blood 8.7 mg/dL (8.5-10.1); Creatinine, Blood 0.64 mg/dL (0.40-1.00); Magnesium, Blood 1.6 mg/dL (1.6-2.4); Phosphorus, Blood 2.7 mg/dL (2.5-4.9); Potassium, Blood 4.4 mmol/L (3.5-5.5)
[2024-08-30 20:15] VITALS: BP 120/77
[2024-08-30] MEDS ORDERED: DULoxetine HCL 30 MG Cap DR PO SCH (21:00)
[2024-08-30] MEDS ORDERED: Mometasone/Formoterol MDI 100/5 mcg 13 GM INH SCH (23:45)
[2024-08-31 04:43] VITALS: BP 139/87
--- NOTE | 2024-08-31 05:01 | NUR ---
WEEKLY SUMMARY PT ALERT ORIENTED X 4 ABLE TO VERBALIZES NEEDS AND USES CALL LIGHT TO CALL GETS UP AD DEEPAK IN ROOM AND GOES TO BATHROOM FS DONE AC AND HS WAS 290 AT HS SHE C/O ABD PAIN MEDICATED WITH FENTANYL WITH GOOD PAIN RELIEF. VSS ON RA SATTING AT 98%. SHE HAD 1 BAG OF NS AND IS NOW SL. NO C/O NAUSEA REMAINS ON TELEMETRY AT R AT A RATE OF 98. RESTING IN BED AT THIS TIME WITH CALL LIGHT IN REACH
[2024-08-31 05:55] LABS: BASOPHILS ABSOLUTE AUTO 0.03 K/mm3 (0.00-0.23); BASOPHILS PERCENT AUTO 0 % (0-2); EOSINOPHILS PERCENT AUTO 0 % (0-6); Hematocrit 34.3 % (33.0-51.0); IMMATURE GRAN ABSOLUTE AUTO 0.02 K/mm3 (0.00-0.10); IMMATURE GRAN PERCENT AUTO 0 % (0-1); LYMPHOCYTES ABSOLUTE AUTO 2.79 K/mm3 (0.84-5.20); LYMPHOCYTES PERCENT AUTO 36 % (21-46); MONOCYTES ABSOLUTE AUTO 0.42 K/mm3 (0.16-1.47); MONOCYTES PERCENT AUTO 6 % (4-13); Mean Corpuscular HGB 31.2 pg (26.0-34.0); Mean Corpuscular Volume 89 fL (80-100); Mean Platelet Volume 9.7 fL (9.1-12.4); NEUTROPHILS ABSOLUTE AUTO 4.43 K/mm3 (1.96-9.15); NEUTROPHILS PERCENT AUTO 58 % (41-73); Platelet Count 159 K/mm3 (150-400); RDW Coefficient Variation 14.6 % (11.7-14.2); RDW Standard Deviation 46.5 fL (35.1-46.3); Red Blood Cell Count 3.85 M/mm3 (3.80-5.20); White Blood Cell Count 7.69 K/mm3 (4.00-11.30)
[2024-08-31 07:00] LABS: Albumin, Blood 2.9 g/dL (3.4-5.0); Albumin/Globulin Ratio 0.9 (0.8-1.8); Bilirubin, Total 0.5 mg/dL (0.1-1.0); Calcium, Blood 8.7 mg/dL (8.5-10.1); Creatinine, Blood 0.58 mg/dL (0.40-1.00); Globulin, Blood 3.2 g/dL (2.2-4.0); Potassium, Blood 3.7 mmol/L (3.5-5.5)
[2024-08-31 07:01] LABS: Total Protein, Blood 6.1 g/dL (6.4-8.2)
[2024-08-31] MEDS ORDERED: Insulin Human Lispro 100 Units/ML 3ML Syringe SC SCH ×2 (07:30→08:30)
[2024-08-31 07:33] VITALS: BP 129/77
[2024-08-31] MEDS ORDERED: Carvedilol 6.25 MG Tab PO SCH (08:00)
[2024-08-31] MEDS ORDERED: HydroCHLOROthiazide 25 mg Tab PO SCH (09:00)
[2024-08-31] MEDS ORDERED: Insulin Glargine-Yfgn 100 Unit/mL 3 ML SYR SC SCH ×2 (09:00→21:00)
[2024-08-31] MEDS ORDERED: Venlafaxine HCl 75 MG CapCR PO SCH (09:00)
[2024-08-31 16:30] VITALS: BP 138/88
--- NOTE | 2024-08-31 17:35 | NUR ---
PT HAS HAD C/O NAUSEA AND RUQ PAIN. PT'S BLOOD SUGAR WAS IN THE LOW TO MID 200 FOR BREAKFAST AND LUNCH. GIVEN DOSES PER SLIDING SCALE. SEE EMAR FOR FREQUNCY AND DETAILS FOR PRN MEDICATIONS GIVEN. PT AND AT BEDSIDE HAVE NO QUESTIONS OR CONCERNS AT THIS TIME.
[2024-08-31] MEDS ORDERED: Sodium Chloride 0.45% 1,000 ML IV SCH (19:00)
[2024-08-31 19:34] VITALS: BP 136/85
[2024-08-31] MEDS ORDERED: FentaNYL Citrate 50 MCG/ML 2 ML Injection IV PRN (20:15)
[2024-09-01 02:21] VITALS: BP 144/92
--- NOTE | 2024-09-01 05:28 | NUR ---
SHIFT SUMMARY NOC PT A/O X 4. PLEASANT AND COOPERATIVE WITH CARE. VSS. HS CBG 142 25 UNITS LONG ACTING LANTUS GIVEN ALONG WITH SNACK. PT STILL HAS C/O OF ABD PAIN AND STATES MORE RELIEF NOW THAT IVF 1/2 NS @ 125 ML/HR STARTED. PT PAIN AND NAUSEA BEING MANAGED PER EMAR. PT ON TELE NSR IN 90'S. PT CURRENTLY RESTING WITH BED IN LOWEST POSITION, AND CALL LIGHT WITHIN REACH.
[2024-09-01 05:29] LABS: BASOPHILS ABSOLUTE AUTO 0.02 K/mm3 (0.00-0.23); BASOPHILS PERCENT AUTO 0 % (0-2); EOSINOPHILS ABSOLUTE AUTO 0.11 K/mm3 (0.00-0.68); EOSINOPHILS PERCENT AUTO 2 % (0-6); Hematocrit 36.8 % (33.0-51.0); Hemoglobin 12.7 g/dL (11.5-16.0); IMMATURE GRAN ABSOLUTE AUTO 0.01 K/mm3 (0.00-0.10); IMMATURE GRAN PERCENT AUTO 0 % (0-1); LYMPHOCYTES ABSOLUTE AUTO 2.66 K/mm3 (0.84-5.20); LYMPHOCYTES PERCENT AUTO 44 % (21-46); MONOCYTES ABSOLUTE AUTO 0.36 K/mm3 (0.16-1.47); MONOCYTES PERCENT AUTO 6 % (4-13); Mean Corpuscular HGB 30.3 pg (26.0-34.0); Mean Corpuscular HGB Conc 34.5 g/dL (31.5-36.5); Mean Corpuscular Volume 88 fL (80-100); NEUTROPHILS ABSOLUTE AUTO 2.83 K/mm3 (1.96-9.15); NEUTROPHILS PERCENT AUTO 47 % (41-73); Platelet Count 179 K/mm3 (150-400); RDW Coefficient Variation 14.2 % (11.7-14.2); RDW Standard Deviation 44.4 fL (35.1-46.3); Red Blood Cell Count 4.19 M/mm3 (3.80-5.20); White Blood Cell Count 5.99 K/mm3 (4.00-11.30)
[2024-09-01 05:57] LABS: Anion Gap 7 mmol/L (3-11); Blood Urea Nitrogen 5 mg/dL (8-24); Bun/Creatinine Ratio 9.8 (12.0-20.0); CO2, Blood 27 mmol/L (21-32); Calcium, Blood 9.1 mg/dL (8.5-10.1); Chloride, Blood 113 mmol/L (98-108); Creatinine, Blood 0.51 mg/dL (0.40-1.00); Glomerular Filtration Rate 111 (60-); Glucose, Blood 89 mg/dL (70-99); Phosphorus, Blood 2.8 mg/dL (2.5-4.9); Potassium, Blood 3.4 mmol/L (3.5-5.5); Sodium, Blood 144 mmol/L (136-145)
[2024-09-01 06:58] VITALS: BP 117/73
[2024-09-01 16:25] VITALS: BP 140/92
[2024-09-01] MEDS ORDERED: Polyethylene Glycol 3350 17 gm PO PRN (17:25)
--- NOTE | 2024-09-01 18:57 | NUR ---
NO CHANGES IN PT'S STATUS. PT HAS NO QUESTIONS OR CONCERS FOR THE DAY. PT HAD CINSISTANT C/O ABD PAIN BUT NOT WORSENING. SEE EMAR FOR FREQUENCY AND DETAILS.
[2024-09-01 19:23] VITALS: BP 154/102
[2024-09-01] MEDS ORDERED: Ketorolac Tromethamine 15mg Vial IV PRN (21:10)
[2024-09-02 04:19] VITALS: BP 148/91
--- NOTE | 2024-09-02 05:31 | NUR ---
SHIFT SUMMARY NOC PT A/O X 4. PLEASANT AND COOPERATIVE WITH CARE. BP SLIGHTLY ELEVATED AND BEDTIME DOSE OF NORVASC GIVEN. PT STILL HAVING C/O OF ABD PAIN THAT PT REPORTS IS GETTING WORSE AND FENTANYL 50 MCG Q4P IS NOT WORKING. HOSPITALIST NOTIFIED OF PT REQUEST FOR ADDITIONAL PAIN RX, AND THERE IS CONCERN PT MAY HAVE OPIOD DEPENDENCE AND IS LOOKING FOR MORE IV NARCOTICS. INSTEAD TORADOL IV Q6P ORDERED AND CONCERNS WILL BE RELAYED TO DAY RN. PT TID HUMALOG CHANGED TO 8 UNITS AC AND SLIDING SCALE FOR AC/HS TO LOW CS PER VERBAL ORDER FROM MD RELAYED BY DAY RN DURING CHANGE OF SHIFT REPORT. HS CBG 214 AND 25 UNITS LANTUS GIVEN. IVF INFUSING @ 125 ML/HR. ON TELE SINUS RHYTHM IN 80'S. PT CURRENTLY RESTING WITH BED IN LOWEST POSITION, AND CALL LIGHT WITHIN REACH.
[2024-09-02 06:11] LABS: Anion Gap 7 mmol/L (3-11); Blood Urea Nitrogen 6 mg/dL (8-24); Bun/Creatinine Ratio 12.4 (12.0-20.0); CO2, Blood 30 mmol/L (21-32); Calcium, Blood 9.2 mg/dL (8.5-10.1); Chloride, Blood 110 mmol/L (98-108); Creatinine, Blood 0.48 mg/dL (0.40-1.00); Glomerular Filtration Rate 112 (60-); Glucose, Blood 114 mg/dL (70-99); Phosphorus, Blood 3.5 mg/dL (2.5-4.9); Potassium, Blood 3.3 mmol/L (3.5-5.5); Sodium, Blood 144 mmol/L (136-145)
[2024-09-02 07:41] VITALS: BP 134/90
[2024-09-02] MEDS ORDERED: Insulin Human Lispro 100 Units/ML 3ML Syringe SC SCH (08:30)
[2024-09-02 15:26] VITALS: BP 134/85
--- NOTE | 2024-09-02 17:18 | NUR ---
SHIFT SUMMARY PT AOX4, COOPERATIVE, ABLE TO MAKE NEEDS KNOWN. PT USING BATHROOM WITH SBA. NS WAS DC'D TODAY PER MD VERBAL ORDER. PT HAD QUESTION ABOUT TAKING ANTIDIABETIC THIS SATURDAY, MD INFORMED AND TO DISCUSS WITH PT IN AM. RIGHT AC IV HAD TO BE DC'D DUE TO LEAKING. NOT SURE WHAT PLAN IS, INFORMED RN THAT THEY WERE NOT SURE IF PT WOULD BE STAYING TH NIGHT WELL. BED IN LOWEST POSITION, CALL LIGHT WITHIN REACH.
[2024-09-02 19:41] VITALS: BP 138/85
--- NOTE | 2024-09-03 03:11 | NUR ---
SHIFT SUMMARY PT ALERT ORIENTED X 4 ABLE TO VERBALIZE NEEDS CALLS APPROPRIATELY. GETS UP IN ROOM AD DEEPAK. C/O ABD PAIN AND NAUSEA MEDICATED WITH TORADOL AND ZOFRAN WITH GOOD RELIEF. SHES BEEN SLEEPING OFF AND ON THIS SHIFT. SHE TOOK A SHOWER THIS SHIFT AND DID WELL. FS WAS 231 THIS SHIFT AND SHE WAS MEDICATED WITH HER GLARGINE. VSS ON RA SATTING AT 98%. FS ARE STABLE AT THIS TIME. REMAINS ON TELEMETRY AT [place] AT A RATE OF 102. RESTING IN BED AT THIS TIME WITH CALL LIGHT IN REACH
[2024-09-03 03:26] VITALS: BP 159/90
[2024-09-03] MEDS ORDERED: Potassium Chloride 40 MEQ in NS 250 ML IV ONE (07:40)
[2024-09-03 08:15] VITALS: BP 161/106
[2024-09-03] MEDS ORDERED: Insulin Human Lispro 100 Units/ML 3ML Syringe SC SCH (08:30)
[2024-09-03] MEDS ORDERED: NS 500 ML IV SCH (08:55)
[2024-09-03] MEDS ORDERED: Insulin Glargine-Yfgn 100 Unit/mL 3 ML SYR SC SCH (09:00)
[2024-09-03 15:18] VITALS: BP 140/98
--- NOTE | 2024-09-03 18:38 | NUR ---
SUMMARY- PT A/O X4, INDEPENDANT IN ROOM. BLOOD SUGARS WELL CONTROLLED IN 120 RANGE. LUNGS CLEAR, ROOM AIR. OCC ABD PAIN AFTER EATING, MEDICATED WITH TORADOL AND ZOFRAN AFTER LUNCH WHICH AIDED IN NAUSEA AND ABD PAIN. PT STATES HX OF CONSTIPATION, GIVEN MIRILAX AFTER LUNCH WELL. PT TAKING IN FOOD AND FLUIDS WITHOUT DIFFICULTY. REPLENISHED KCL TODAY. PLAN FOR PT TO LIKELY DC TOMORROW. WILL REPORT TO NOC RN
[2024-09-03 19:10] VITALS: BP 145/94
[2024-09-03] MEDS ORDERED: Ipratropium Bromide INH 0.02% 0.5 mg/2.5ML Vial INH PRN (21:50)
[2024-09-04 03:41] VITALS: BP 129/86
--- NOTE | 2024-09-04 05:22 | NUR ---
SHIFT SUMMARY PT ALERT ORIENTED ABLE TO VERBALIZE NEEDS USES CALL LIGHT APPROPRIATELY. FS DONE AC AND HS WAS 167. AT 0430 SHE STATED THAT SHE FELT THAT HER FS WAS LOW I RECHECKED IT AND IT WAS AT 170. SHE C/O A LITTLE NAUSEA AND ABD PAIN MEDICATED HER WITH ZOFRAN AND TRAMADOL WITH GOOD PAIN RELIEF. SHE GETS UP IN ROOM AD DEEPAK. REMAINS ON TELEMETRY AT [facility] WITH BBB AT A RATE OF 85. HER POTASSIUM WAS LOW YESTERDAY AND SHE RECIEVED IV POTASSIUM LAB TO RECHECKED THIS AM. SHES RESTING IN BED AT THIS TIME WITH HER CALL LIGHT IN REACH
[2024-09-04 06:17] LABS: Bun/Creatinine Ratio 23.7 (12.0-20.0); Calcium, Blood 9.4 mg/dL (8.5-10.1); Creatinine, Blood 0.59 mg/dL (0.40-1.00); Potassium, Blood 3.6 mmol/L (3.5-5.5)
[2024-09-04 08:19] VITALS: BP 116/81
[2024-09-04] MEDS ORDERED: CARV6.25 PO (13:46)
[2024-09-04] MEDS ORDERED: 1/2 NS 250ml250 ML (13:47)
[2024-09-04] MEDS ORDERED: ONDA4 PO (13:47)
--- NOTE | 2024-09-04 15:17 | NUR ---
DISCHARGE SUMMARY PT DC THIS SHIFT. DC INSTRUCTION GONE OVER WITH PT WHOM STATED UNDERSTANDING. PT WAS TAKEN OUT TO PRIVATE VEHICLE VIA WHEELCHIAR BY THIS NURSE. MEDICATION FAXED TO [facility].
== END 2024-09-04 14:56 | disposition home or self-care (01) | DRG 638 ==
LOC: ER 00:14 → ERHOLD 04:06 → MEDS 04:06
PROVIDERS: Family Medicine; Internal Medicine; Physician Assistant; ADMIT Internal Medicine
DX: E11.10 Type 2 diabetes mellitus with ketoacidosis without coma (principal); I50.32 Chronic diastolic (congestive) heart failure; F41.8 Other specified anxiety disorders; J44.9 Chronic obstructive pulmonary disease, unspecified; E11.43 Type 2 diabetes mellitus with diabetic autonomic (poly)neuropathy; K31.84 Gastroparesis; E03.9 Hypothyroidism, unspecified; F41.1 Generalized anxiety disorder; E66.01 Morbid (severe) obesity due to excess calories; G47.33 Obstructive sleep apnea (adult) (pediatric); I11.0 Hypertensive heart disease with heart failure; E86.0 Dehydration; Z96.643 Presence of artificial hip joint, bilateral; E11.42 Type 2 diabetes mellitus with diabetic polyneuropathy; E78.5 Hyperlipidemia, unspecified; Z88.5 Allergy status to narcotic agent; Z88.0 Allergy status to penicillin; Z88.8 Allergy status to other drugs, medicaments and biological substances; Z88.2 Allergy status to sulfonamides; Z79.85 Long-term (current) use of injectable non-insulin antidiabetic drugs; Z79.52 Long term (current) use of systemic steroids; Z79.890 Hormone replacement therapy; Z68.33 Body mass index [BMI] 33.0-33.9, adult; Z87.891 Personal history of nicotine dependence
CPT/HCPCS: 36415; 80048; 80053; 80069; 82010; 82803; 82947; 83735; 84100; 85025; 93005; 93010; 94640; 94664; 94760; 96361; 96374; 96375; 99285-25; A9270; J1650; J1815; J1885; J2405; J3010; J3480; J7030; J7040; J7050

== ENCOUNTER 2024-09-08 13:28 | Emergency (ER) | payer OTHER ==
[~2024-09-08] VITALS: Ht 149.9 cm; Wt 74.8 kg
[~2024-09-08 13:28] MED LIST changes: +1/2 NS 250ml250 ML; +CARV6.25 PO; +ONDA4 PO; +Synthroid300 MCG PO; +TRULICITY4.5 MG/0.5 SQ
[2024-09-08 14:15] LABS: BASOPHILS ABSOLUTE AUTO 0.03 K/mm3 (0.00-0.23); BASOPHILS PERCENT AUTO 1 % (0-2); EOSINOPHILS ABSOLUTE AUTO 0.12 K/mm3 (0.00-0.68); EOSINOPHILS PERCENT AUTO 2 % (0-6); Hematocrit 40.8 % (33.0-51.0); Hemoglobin 14.3 g/dL (11.5-16.0); IMMATURE GRAN ABSOLUTE AUTO 0.01 K/mm3 (0.00-0.10); IMMATURE GRAN PERCENT AUTO 0 % (0-1); LYMPHOCYTES ABSOLUTE AUTO 2.42 K/mm3 (0.84-5.20); LYMPHOCYTES PERCENT AUTO 39 % (21-46); MONOCYTES ABSOLUTE AUTO 0.46 K/mm3 (0.16-1.47); MONOCYTES PERCENT AUTO 7 % (4-13); Mean Corpuscular HGB 30.5 pg (26.0-34.0); Mean Corpuscular Volume 87 fL (80-100); Mean Platelet Volume 9.9 fL (9.1-12.4); NEUTROPHILS ABSOLUTE AUTO 3.14 K/mm3 (1.96-9.15); NEUTROPHILS PERCENT AUTO 51 % (41-73); Platelet Count 205 K/mm3 (150-400); RDW Coefficient Variation 13.6 % (11.7-14.2); RDW Standard Deviation 42.5 fL (35.1-46.3); Red Blood Cell Count 4.69 M/mm3 (3.80-5.20); White Blood Cell Count 6.18 K/mm3 (4.00-11.30)
[2024-09-08 14:37] LABS: Albumin, Blood 3.3 g/dL (3.4-5.0); Albumin/Globulin Ratio 0.9 (0.8-1.8); Bilirubin, Total 0.5 mg/dL (0.1-1.0); Bun/Creatinine Ratio 13.3 (12.0-20.0); Calcium, Blood 9.5 mg/dL (8.5-10.1); Creatinine, Blood 0.53 mg/dL (0.40-1.00); Globulin, Blood 3.8 g/dL (2.2-4.0); Potassium, Blood 3.7 mmol/L (3.5-5.5); Total Protein, Blood 7.1 g/dL (6.4-8.2)
[2024-09-08] MEDS ORDERED: Morphine Sulfate 4 MG/1 ML Injection IV ONE (16:10)
[2024-09-08] MEDS ORDERED: Ketorolac Tromethamine 15mg Vial IV ONE (16:10)
[2024-09-08] MEDS ORDERED: NS 1,000 ML IV SCH (16:10)
[2024-09-08] MEDS ORDERED: Metoclopramide HCl 5MG / ML 2ML Vial IV ONE (16:10)
[2024-09-08] MEDS ORDERED: Pantoprazole Sodium 40 MG Injection IV ONE (16:35)
[2024-09-08] MEDS ORDERED: DiphenhydrAMINE HCl 50 MG/ML 1ML Vial IV ONE (16:35)
[2024-09-08] MEDS ORDERED: Dexamethasone Sod Phos 10 MG/ML 1ML VIAL IV ONE (16:40)
[2024-09-08 17:31] LABS: Source, Urine Clean Catch
[2024-09-08 17:34] LABS: Appearance, Urine Clear (Clear); Bilirubin, Urine Neg (Neg); Blood, Urine Neg (Neg); Color, Urine Yellow (P-Yellow); Glucose Qualitative, Urine 2+ (Neg); Ketones, Urine Neg (Neg); Leukocyte Esterase, Urine Neg (Neg); Nitrite, Urine Neg (Neg); Protein, Urine Neg (Neg); Specific Gravity, Urine 1.015 (1.003-1.022); Urobilinogen, Urine 1+ (Normal)
[2024-09-08] MEDS ORDERED: Ciprofloxacin 500 MG Tab PO ONE (18:05)
[2024-09-08] MEDS ORDERED: MetroNIDAZOLE 500 MG Tab PO ONE (18:05)
[2024-09-08] MEDS ORDERED: RX Prepack 6 Tabs Oxycodone 5mg UD ONE (18:10)
[2024-09-08] MEDS ORDERED: CIPR500 PO (18:18)
[2024-09-08] MEDS ORDERED: PHENERGAN25 MG PR (18:18)
[2024-09-08] MEDS ORDERED: METR500 PO (18:18)
[2024-09-08] MEDS ORDERED: PROM25 PO (18:18)
[2024-09-08 18:30] VITALS: BP 140/82
[2024-09-08 18:43] LABS: CORONAVIRUS COVID-19 AG Negative (NEGATIVE); INFLUENZA A AG Negative (NEGATIVE); INFLUENZA B AG Negative (NEGATIVE)
[2024-09-13] MEDS ORDERED: METO5A PO ×2 (00:08→12:54)
[2024-09-13] MEDS ORDERED: SUCR1 PO ×2 (00:08→12:54)
[2024-09-13] MEDS ORDERED: MIRALAX17 GM PO ×2 (00:08→12:54)
== END 2024-09-08 18:30 | disposition home or self-care (01) ==
LOC: ER 13:28
PROVIDERS: Physician Assistant; Student in an Organized Health Care Education/Training Program
DX: K52.9 Noninfective gastroenteritis and colitis, unspecified (principal); E13.40 Other specified diabetes mellitus with diabetic neuropathy, unspecified; I50.9 Heart failure, unspecified; E03.9 Hypothyroidism, unspecified; J44.9 Chronic obstructive pulmonary disease, unspecified; G47.33 Obstructive sleep apnea (adult) (pediatric); Z88.0 Allergy status to penicillin; Z88.2 Allergy status to sulfonamides; Z88.5 Allergy status to narcotic agent; Z88.1 Allergy status to other antibiotic agents; Z79.4 Long term (current) use of insulin; Z79.899 Other long term (current) drug therapy; Z79.890 Hormone replacement therapy
CPT/HCPCS: 74177; 80053; 81003; 83690; 84484; 85025; 87428-QW; 93005; 93010; 96361; 96374-59; 96375; 99284-25; A9270; J1100; J1200; J1885; J2270; J2470; J2765; J7030; Q9967

== ENCOUNTER 2024-09-12 18:21 | Emergency (ER) | payer OTHER ==
[~2024-09-12] VITALS: Ht 149.9 cm; Wt 74.8 kg
[~2024-09-12 18:21] MED LIST changes: +METR500 PO; +PHENERGAN25 MG PR; +PROM25 PO
[2024-09-12 19:03] LABS: BASOPHILS ABSOLUTE AUTO 0.04 K/mm3 (0.00-0.23); BASOPHILS PERCENT AUTO 1 % (0-2); EOSINOPHILS PERCENT AUTO 0 % (0-6); Hematocrit 43.4 % (33.0-51.0); Hemoglobin 15.5 g/dL (11.5-16.0); IMMATURE GRAN ABSOLUTE AUTO 0.03 K/mm3 (0.00-0.10); IMMATURE GRAN PERCENT AUTO 0 % (0-1); LYMPHOCYTES ABSOLUTE AUTO 2.43 K/mm3 (0.84-5.20); LYMPHOCYTES PERCENT AUTO 28 % (21-46); MONOCYTES ABSOLUTE AUTO 0.39 K/mm3 (0.16-1.47); MONOCYTES PERCENT AUTO 4 % (4-13); Mean Corpuscular HGB 30.6 pg (26.0-34.0); Mean Corpuscular HGB Conc 35.7 g/dL (31.5-36.5); Mean Corpuscular Volume 86 fL (80-100); Mean Platelet Volume 10.1 fL (9.1-12.4); NEUTROPHILS ABSOLUTE AUTO 5.96 K/mm3 (1.96-9.15); NEUTROPHILS PERCENT AUTO 67 % (41-73); Platelet Count 265 K/mm3 (150-400); RDW Coefficient Variation 13.5 % (11.7-14.2); RDW Standard Deviation 41.7 fL (35.1-46.3); Red Blood Cell Count 5.06 M/mm3 (3.80-5.20); White Blood Cell Count 8.85 K/mm3 (4.00-11.30)
[2024-09-12 19:06] LABS: Base Excess Venous -4.5 mmol/L; Bicarbonate Venous 21.8 mmol/L (24.0-30.0); PCO2 Venous 29.7 mmHg (38-42); pH Blood Venous 7.43 (7.34-7.37)
[2024-09-12 19:20] LABS: Albumin, Blood 3.5 g/dL (3.4-5.0); Albumin/Globulin Ratio 0.9 (0.8-1.8); Beta-hydroxybutyrate 7.9 mg/dL (0.2-2.8); Bilirubin, Total 0.5 mg/dL (0.1-1.0); Bun/Creatinine Ratio 21.3 (12.0-20.0); Calcium, Blood 9.6 mg/dL (8.5-10.1); Creatinine, Blood 0.61 mg/dL (0.40-1.00); Globulin, Blood 3.8 g/dL (2.2-4.0); Potassium, Blood 3.8 mmol/L (3.5-5.5); Total Protein, Blood 7.3 g/dL (6.4-8.2)
[2024-09-12] MEDS ORDERED: Morphine Sulfate 4 MG/1 ML Injection IV ONE (20:15)
[2024-09-12] MEDS ORDERED: Lactated Ringer's 1,000 ML IV ONE (20:15)
[2024-09-12] MEDS ORDERED: Ondansetron HCl 2 MG / ML 2ML Vial IV ONE (20:15)
[2024-09-12 20:33] LABS: Magnesium, Blood 1.8 mg/dL (1.6-2.4)
[2024-09-12 22:34] LABS: Source, Urine Clean Catch
[2024-09-12] MEDS ORDERED: Metoclopramide HCl 5MG / ML 2ML Vial IV ONE (22:35)
[2024-09-12] MEDS ORDERED: Ketorolac Tromethamine 15mg Vial IV ONE (22:35)
[2024-09-12 22:44] LABS: Bilirubin, Urine Neg (Neg); Blood, Urine Neg (Neg); Glucose Qualitative, Urine 4+ (Neg); Ketones, Urine 3+ (Neg); Leukocyte Esterase, Urine Neg (Neg); Nitrite, Urine Neg (Neg); Protein, Urine Neg (Neg); Urobilinogen, Urine NORM (Normal)
[2024-09-12 22:45] LABS: Appearance, Urine Clear (Clear); Color, Urine Yellow (P-Yellow)
[2024-09-12] MEDS ORDERED: Sucralfate 1000MG / 10ML UD BTL PO ONE (23:05)
[2024-09-12] MEDS ORDERED: Lidocaine 2% Viscous Soln 15 ML UDC PO ONE (23:05)
[2024-09-12] MEDS ORDERED: Mag Hydrox/AL Hydrox/Simeth 30 ML UDC PO ONE (23:10)
[2024-09-13] MEDS ORDERED: SUCR1 PO ×3 (00:08→12:54)
[2024-09-13] MEDS ORDERED: METO5A PO ×3 (00:08→12:54)
[2024-09-13] MEDS ORDERED: MIRALAX17 GM PO ×3 (00:08→12:54)
[2024-09-13 00:19] VITALS: BP 130/72
[2024-09-13] MEDS ORDERED: Percocet 5-3251 EACH PO (12:54)
== END 2024-09-13 00:28 | disposition home or self-care (01) ==
LOC: ER 18:21
PROVIDERS: Student in an Organized Health Care Education/Training Program
DX: K57.30 Diverticulosis of large intestine without perforation or abscess without bleeding (principal); K29.70 Gastritis, unspecified, without bleeding; K59.00 Constipation, unspecified; J44.9 Chronic obstructive pulmonary disease, unspecified; E11.40 Type 2 diabetes mellitus with diabetic neuropathy, unspecified; G47.33 Obstructive sleep apnea (adult) (pediatric); Z87.891 Personal history of nicotine dependence; Z79.4 Long term (current) use of insulin; Z79.899 Other long term (current) drug therapy; Z88.0 Allergy status to penicillin; Z88.2 Allergy status to sulfonamides; Z88.1 Allergy status to other antibiotic agents; Z88.5 Allergy status to narcotic agent; Z88.8 Allergy status to other drugs, medicaments and biological substances
CPT/HCPCS: 74177; 80053; 81003; 82010; 82803; 83690; 83735; 85025; 93005; 93010; 96361; 96374-59; 96375; 99284-25; A9270; J1885; J2270; J2405; J2765; J7120; Q9967

== ENCOUNTER 2024-09-13 05:44 | Emergency (ER) | payer OTHER ==
[~2024-09-13] VITALS: Ht 149.9 cm; Wt 74.8 kg
[~2024-09-13 05:44] MED LIST changes: +METO5A PO; +MIRALAX17 GM PO
[2024-09-13] MEDS ORDERED: OxyCODONE 5 mg/Acetamin 325 mg TABLET PO ONE (11:55)
[2024-09-13] MEDS ORDERED: Metoclopramide HCl 10 MG Tab PO ONE (11:55)
[2024-09-13] MEDS ORDERED: METO5A PO (12:54)
[2024-09-13] MEDS ORDERED: SUCR1 PO (12:54)
[2024-09-13] MEDS ORDERED: Percocet 5-3251 EACH PO (12:54)
[2024-09-13] MEDS ORDERED: MIRALAX17 GM PO (12:54)
[2024-09-13 13:00] VITALS: BP 129/85
== END 2024-09-13 13:00 | disposition home or self-care (01) ==
LOC: ER 05:44
DX: R11.2 Nausea with vomiting, unspecified (principal); R10.9 Unspecified abdominal pain; J44.9 Chronic obstructive pulmonary disease, unspecified; E10.43 Type 1 diabetes mellitus with diabetic autonomic (poly)neuropathy; K31.84 Gastroparesis; E10.40 Type 1 diabetes mellitus with diabetic neuropathy, unspecified; G43.909 Migraine, unspecified, not intractable, without status migrainosus; Z87.891 Personal history of nicotine dependence; Z79.4 Long term (current) use of insulin; Z79.899 Other long term (current) drug therapy; Z88.2 Allergy status to sulfonamides; Z88.0 Allergy status to penicillin; Z88.5 Allergy status to narcotic agent; Z88.1 Allergy status to other antibiotic agents; Z88.8 Allergy status to other drugs, medicaments and biological substances
CPT/HCPCS: 82947; 99284; A9270

== ENCOUNTER → 2024-09-30 | Outpatient (CLI) | payer OTHER ==
[~2024-09-30] MED LIST changes: +Percocet 5-3251 EACH PO
[2024-09-30 11:33] LABS: BASOPHILS ABSOLUTE AUTO 0.03 K/mm3 (0.00-0.23); BASOPHILS PERCENT AUTO 1 % (0-2); EOSINOPHILS PERCENT AUTO 0 % (0-6); Hemoglobin 14.7 g/dL (11.5-16.0); IMMATURE GRAN ABSOLUTE AUTO 0.01 K/mm3 (0.00-0.10); IMMATURE GRAN PERCENT AUTO 0 % (0-1); LYMPHOCYTES ABSOLUTE AUTO 2.49 K/mm3 (0.84-5.20); LYMPHOCYTES PERCENT AUTO 44 % (21-46); MONOCYTES ABSOLUTE AUTO 0.42 K/mm3 (0.16-1.47); MONOCYTES PERCENT AUTO 7 % (4-13); Mean Corpuscular HGB 30.4 pg (26.0-34.0); Mean Corpuscular HGB Conc 35.9 g/dL (31.5-36.5); Mean Corpuscular Volume 85 fL (80-100); Mean Platelet Volume 10.5 fL (9.1-12.4); NEUTROPHILS ABSOLUTE AUTO 2.75 K/mm3 (1.96-9.15); NEUTROPHILS PERCENT AUTO 48 % (41-73); Platelet Count 181 K/mm3 (150-400); RDW Coefficient Variation 13.2 % (11.7-14.2); RDW Standard Deviation 40.6 fL (35.1-46.3); Red Blood Cell Count 4.84 M/mm3 (3.80-5.20)
[2024-09-30 11:42] LABS: Albumin, Blood 3.5 g/dL (3.4-5.0); Albumin/Globulin Ratio 0.9 (0.8-1.8); Bilirubin, Total 0.4 mg/dL (0.1-1.0); Bun/Creatinine Ratio 22.4 (12.0-20.0); Calcium, Blood 9.3 mg/dL (8.5-10.1); Creatinine, Blood 0.67 mg/dL (0.40-1.00); Globulin, Blood 3.7 g/dL (2.2-4.0); Total Protein, Blood 7.2 g/dL (6.4-8.2)
== END ==
LOC: LAB SHORT 11:23 → LAB 11:23
PROVIDERS: Physician Assistant
DX: R07.9 Chest pain, unspecified (principal)
CPT/HCPCS: 80053; 84484; 85025

== ENCOUNTER 2024-10-01 03:38 | Emergency (ER) | payer OTHER ==
[~2024-10-01] VITALS: Ht 149.9 cm; Wt 69.0 kg
[2024-10-01] MEDS ORDERED: NS 1,000 ML IV SCH (03:55)
[2024-10-01 04:05] LABS: BASOPHILS ABSOLUTE AUTO 0.04 K/mm3 (0.00-0.23); BASOPHILS PERCENT AUTO 1 % (0-2); EOSINOPHILS PERCENT AUTO 0 % (0-6); Hematocrit 38.5 % (33.0-51.0); Hemoglobin 13.6 g/dL (11.5-16.0); IMMATURE GRAN ABSOLUTE AUTO 0.01 K/mm3 (0.00-0.10); IMMATURE GRAN PERCENT AUTO 0 % (0-1); LYMPHOCYTES ABSOLUTE AUTO 2.31 K/mm3 (0.84-5.20); LYMPHOCYTES PERCENT AUTO 43 % (21-46); MONOCYTES ABSOLUTE AUTO 0.43 K/mm3 (0.16-1.47); MONOCYTES PERCENT AUTO 8 % (4-13); Mean Corpuscular HGB 30.5 pg (26.0-34.0); Mean Corpuscular HGB Conc 35.3 g/dL (31.5-36.5); Mean Corpuscular Volume 86 fL (80-100); Mean Platelet Volume 10.4 fL (9.1-12.4); NEUTROPHILS ABSOLUTE AUTO 2.61 K/mm3 (1.96-9.15); NEUTROPHILS PERCENT AUTO 48 % (41-73); Platelet Count 156 K/mm3 (150-400); RDW Coefficient Variation 13.1 % (11.7-14.2); RDW Standard Deviation 40.6 fL (35.1-46.3); Red Blood Cell Count 4.46 M/mm3 (3.80-5.20)
[2024-10-01 04:10] LABS: Base Excess Venous -2.3 mmol/L; Bicarbonate Venous 22.7 mmol/L (24.0-30.0); PCO2 Venous 37.4 mmHg (38-42); pH Blood Venous 7.39 (7.34-7.37)
[2024-10-01] MEDS ORDERED: Ondansetron HCl 2 MG / ML 2ML Vial IV ONE ×2 (04:20→07:10)
[2024-10-01 04:31] LABS: Beta-hydroxybutyrate 1.5 mg/dL (0.2-2.8); Magnesium, Blood 2.3 mg/dL (1.6-2.4)
[2024-10-01 04:59] LABS: Albumin, Blood 3.4 g/dL (3.4-5.0); Bilirubin, Total 0.3 mg/dL (0.1-1.0); Bun/Creatinine Ratio 32.9 (12.0-20.0); Calcium, Blood 9.2 mg/dL (8.5-10.1); Creatinine, Blood 0.49 mg/dL (0.40-1.00); Globulin, Blood 3.5 g/dL (2.2-4.0); Potassium, Blood 4.4 mmol/L (3.5-5.5); Total Protein, Blood 6.9 g/dL (6.4-8.2)
[2024-10-01] MEDS ORDERED: Insulin Regular 100 Unit/ML 1ML Dose SC ONE ×2 (05:10→05:50)
[2024-10-01 05:18] LABS: Source, Urine Clean Catch
[2024-10-01 05:32] LABS: Appearance, Urine Clear (Clear); Bilirubin, Urine Neg (Neg); Blood, Urine Neg (Neg); Color, Urine Pale Yellow (P-Yellow); Glucose Qualitative, Urine 4+ (Neg); Ketones, Urine Neg (Neg); Leukocyte Esterase, Urine Neg (Neg); Nitrite, Urine Neg (Neg); Protein, Urine Neg (Neg); Urobilinogen, Urine NORM (Normal)
[2024-10-01 07:26] LABS: Glucose, Blood 470 mg/dL (70-99)
[2024-10-01 09:15] VITALS: BP 140/103
== END 2024-10-01 10:04 | disposition home or self-care (01) ==
LOC: ER 03:38
PROVIDERS: Emergency Medicine
DX: E10.65 Type 1 diabetes mellitus with hyperglycemia (principal); E10.43 Type 1 diabetes mellitus with diabetic autonomic (poly)neuropathy; K31.84 Gastroparesis; J44.9 Chronic obstructive pulmonary disease, unspecified; G47.33 Obstructive sleep apnea (adult) (pediatric); E03.9 Hypothyroidism, unspecified; Z87.891 Personal history of nicotine dependence; Z88.0 Allergy status to penicillin; Z88.2 Allergy status to sulfonamides; Z88.1 Allergy status to other antibiotic agents; Z88.5 Allergy status to narcotic agent; Z88.8 Allergy status to other drugs, medicaments and biological substances; Z79.4 Long term (current) use of insulin; Z79.85 Long-term (current) use of injectable non-insulin antidiabetic drugs; Z79.890 Hormone replacement therapy; Z79.899 Other long term (current) drug therapy
CPT/HCPCS: 80053; 81003; 82010; 82803; 82947; 83605; 83735; 84484; 85025; 93005; 93010; 96361; 96374; 96376; 99285-25; J1815; J2405; J7030

== ENCOUNTER 2024-10-05 22:37 | Emergency (ER) | payer OTHER ==
[~2024-10-05] VITALS: Ht 149.9 cm; Wt 69.4 kg
[2024-10-05 22:52] VITALS: BP 176/119
[2024-10-05 23:22] LABS: BASOPHILS ABSOLUTE AUTO 0.03 K/mm3 (0.00-0.23); BASOPHILS PERCENT AUTO 1 % (0-2); EOSINOPHILS PERCENT AUTO 0 % (0-6); Hemoglobin 13.9 g/dL (11.5-16.0); IMMATURE GRAN ABSOLUTE AUTO 0.01 K/mm3 (0.00-0.10); IMMATURE GRAN PERCENT AUTO 0 % (0-1); LYMPHOCYTES ABSOLUTE AUTO 1.69 K/mm3 (0.84-5.20); LYMPHOCYTES PERCENT AUTO 28 % (21-46); MONOCYTES ABSOLUTE AUTO 0.31 K/mm3 (0.16-1.47); MONOCYTES PERCENT AUTO 5 % (4-13); Mean Corpuscular HGB 30.5 pg (26.0-34.0); Mean Corpuscular HGB Conc 35.6 g/dL (31.5-36.5); Mean Corpuscular Volume 86 fL (80-100); Mean Platelet Volume 10.2 fL (9.1-12.4); NEUTROPHILS ABSOLUTE AUTO 3.97 K/mm3 (1.96-9.15); NEUTROPHILS PERCENT AUTO 66 % (41-73); Platelet Count 174 K/mm3 (150-400); RDW Coefficient Variation 13.1 % (11.7-14.2); RDW Standard Deviation 39.8 fL (35.1-46.3); Red Blood Cell Count 4.56 M/mm3 (3.80-5.20); White Blood Cell Count 6.01 K/mm3 (4.00-11.30)
[2024-10-05 23:23] LABS: Base Excess Venous -0.8 mmol/L; Bicarbonate Venous 23.5 mmol/L (24.0-30.0); PCO2 Venous 41.9 mmHg (38-42); pH Blood Venous 7.37 (7.34-7.37)
[2024-10-05 23:51] LABS: Beta-hydroxybutyrate 1.6 mg/dL (0.2-2.8)
[2024-10-06] MEDS ORDERED: Lactated Ringer's 1,000 ML IV ONE (00:05)
[2024-10-06 00:06] LABS: Albumin, Blood 3.5 g/dL (3.4-5.0); Bilirubin, Total 0.4 mg/dL (0.1-1.0); Bun/Creatinine Ratio 21.6 (12.0-20.0); Calcium, Blood 9.1 mg/dL (8.5-10.1); Creatinine, Blood 0.56 mg/dL (0.40-1.00); Globulin, Blood 3.4 g/dL (2.2-4.0); Potassium, Blood 4.3 mmol/L (3.5-5.5); Total Protein, Blood 6.9 g/dL (6.4-8.2)
[2024-10-06] MEDS ORDERED: Insulin Regular 100 Unit/ML 1ML Dose IV ONE (00:10)
[2024-10-06 00:13] LABS: Source, Urine Clean Catch
[2024-10-06 00:17] LABS: Bilirubin, Urine Neg (Neg); Blood, Urine Neg (Neg); Glucose Qualitative, Urine 4+ (Neg); Ketones, Urine Neg (Neg); Leukocyte Esterase, Urine Neg (Neg); Nitrite, Urine Neg (Neg); Protein, Urine Neg (Neg); Specific Gravity, Urine 1.005 (1.003-1.022); Urobilinogen, Urine NORM (Normal)
[2024-10-06 00:20] LABS: Appearance, Urine Clear (Clear); Color, Urine Pale Yellow (P-Yellow)
[2024-10-06] MEDS ORDERED: Ondansetron HCl 2 MG / ML 2ML Vial IV ONE (00:20)
[2024-10-06] MEDS ORDERED: Ondansetron HCl 2 MG / ML 2ML Vial ONE (00:23)
== END 2024-10-06 01:25 | disposition home or self-care (01) ==
LOC: ER 22:37
PROVIDERS: Student in an Organized Health Care Education/Training Program
DX: E13.65 Other specified diabetes mellitus with hyperglycemia (principal); E13.43 Other specified diabetes mellitus with diabetic autonomic (poly)neuropathy; K31.84 Gastroparesis; E13.40 Other specified diabetes mellitus with diabetic neuropathy, unspecified; I50.9 Heart failure, unspecified; E03.9 Hypothyroidism, unspecified; J44.9 Chronic obstructive pulmonary disease, unspecified; G47.33 Obstructive sleep apnea (adult) (pediatric); Z88.0 Allergy status to penicillin; Z88.2 Allergy status to sulfonamides; Z88.5 Allergy status to narcotic agent; Z88.8 Allergy status to other drugs, medicaments and biological substances; Z79.85 Long-term (current) use of injectable non-insulin antidiabetic drugs; Z79.4 Long term (current) use of insulin; Z79.890 Hormone replacement therapy; Z79.899 Other long term (current) drug therapy
CPT/HCPCS: 80053; 81003; 82010; 82803; 82947; 85025; J1815; J2405; J7120

== ENCOUNTER 2024-10-23 22:24 | Emergency (ER) | payer OTHER ==
[~2024-10-23] VITALS: Ht 149.9 cm; Wt 68.0 kg
[2024-10-23 22:59] LABS: BASOPHILS ABSOLUTE AUTO 0.06 K/mm3 (0.00-0.23); BASOPHILS PERCENT AUTO 1 % (0-2); EOSINOPHILS ABSOLUTE AUTO 0.01 K/mm3 (0.00-0.68); EOSINOPHILS PERCENT AUTO 0 % (0-6); Hematocrit 38.7 % (33.0-51.0); Hemoglobin 14.2 g/dL (11.5-16.0); IMMATURE GRAN ABSOLUTE AUTO 0.01 K/mm3 (0.00-0.10); IMMATURE GRAN PERCENT AUTO 0 % (0-1); LYMPHOCYTES ABSOLUTE AUTO 1.46 K/mm3 (0.84-5.20); LYMPHOCYTES PERCENT AUTO 25 % (21-46); MONOCYTES ABSOLUTE AUTO 0.33 K/mm3 (0.16-1.47); MONOCYTES PERCENT AUTO 6 % (4-13); Mean Corpuscular HGB 30.5 pg (26.0-34.0); Mean Corpuscular HGB Conc 36.7 g/dL (31.5-36.5); Mean Corpuscular Volume 83 fL (80-100); NEUTROPHILS ABSOLUTE AUTO 3.89 K/mm3 (1.96-9.15); NEUTROPHILS PERCENT AUTO 68 % (41-73); Platelet Count 202 K/mm3 (150-400); RDW Standard Deviation 38.4 fL (35.1-46.3); Red Blood Cell Count 4.66 M/mm3 (3.80-5.20); White Blood Cell Count 5.76 K/mm3 (4.00-11.30)
[2024-10-23 23:23] LABS: Albumin, Blood 3.6 g/dL (3.4-5.0); Bilirubin, Total 0.4 mg/dL (0.1-1.0); Bun/Creatinine Ratio 25.4 (12.0-20.0); Calcium, Blood 9.5 mg/dL (8.5-10.1); Creatinine, Blood 0.55 mg/dL (0.40-1.00); Globulin, Blood 3.7 g/dL (2.2-4.0); Potassium, Blood 3.8 mmol/L (3.5-5.5); Total Protein, Blood 7.3 g/dL (6.4-8.2)
[2024-10-23 23:51] LABS: Source, Urine Clean Catch
[2024-10-23] MEDS ORDERED: NS 1,000 ML IV SCH (23:55)
[2024-10-23] MEDS ORDERED: Insulin Regular 100 Unit/ML 1ML Dose IV ONE (23:55)
[2024-10-23 23:56] LABS: Bilirubin, Urine Neg (Neg); Blood, Urine Neg (Neg); Glucose Qualitative, Urine 4+ (Neg); Ketones, Urine Neg (Neg); Leukocyte Esterase, Urine 1+ (Neg); Nitrite, Urine Pos (Neg); Protein, Urine Neg (Neg); Specific Gravity, Urine 1.005 (1.003-1.022); Urobilinogen, Urine NORM (Normal)
[2024-10-23 23:57] LABS: Base Excess Venous 1.6 mmol/L; Bicarbonate Venous 25.9 mmol/L (24.0-30.0); PCO2 Venous 37.5 mmHg (38-42); pH Blood Venous 7.44 (7.34-7.37)
[2024-10-24 00:03] LABS: Appearance, Urine Clear (Clear); Color, Urine Pale Yellow (P-Yellow)
[2024-10-24 00:04] LABS: Bacteria Few /hpf; Red Blood Cells, Urine 0-2 /hpf (0-2); Squamous Epithelial Cells Mod /hpf (Few); White Blood Cells, Urine 0-2 /hpf (0-5)
[2024-10-24 00:06] LABS: Beta-hydroxybutyrate 3.8 mg/dL (0.2-2.8)
[2024-10-24] MEDS ORDERED: CefTRIAXone Sodium 1,000 MG in NS 100 ML IV ONE (01:10)
[2024-10-24 01:16] LABS: Influenza A, PCR NEGATIVE (NEGATIVE); Influenza B, PCR NEGATIVE (NEGATIVE); Resp Syncytial Virus, PCR NEGATIVE (NEGATIVE); SARS-Cov-2 (COVID-19) PCR, MMC NEGATIVE (NEGATIVE)
[2024-10-24] MEDS ORDERED: NITR100CA PO (02:14)
[2024-10-24 02:55] VITALS: BP 147/98
== END 2024-10-24 02:56 | disposition home or self-care (01) ==
LOC: ER 22:24
PROVIDERS: Student in an Organized Health Care Education/Training Program
DX: N39.0 Urinary tract infection, site not specified (principal); E10.65 Type 1 diabetes mellitus with hyperglycemia; E10.43 Type 1 diabetes mellitus with diabetic autonomic (poly)neuropathy; E10.40 Type 1 diabetes mellitus with diabetic neuropathy, unspecified; G47.33 Obstructive sleep apnea (adult) (pediatric); E03.9 Hypothyroidism, unspecified; Z87.891 Personal history of nicotine dependence; Z79.4 Long term (current) use of insulin; Z88.0 Allergy status to penicillin; Z88.2 Allergy status to sulfonamides; Z88.5 Allergy status to narcotic agent; Z88.1 Allergy status to other antibiotic agents; Z88.8 Allergy status to other drugs, medicaments and biological substances
CPT/HCPCS: 0241U; 80053; 81001; 82010; 82803; 82947; 85025; 87086; 93005; 93010; 96361; 96365; 99284-25; J0696; J1815; J7030

== ENCOUNTER 2024-10-28 04:50 | Emergency (ER) | payer OTHER ==
[~2024-10-28] VITALS: Ht 149.9 cm; Wt 68.0 kg
[~2024-10-28 04:50] MED LIST changes: +NITR100CA PO
[2024-10-28 05:07] LABS: BASOPHILS ABSOLUTE AUTO 0.03 K/mm3 (0.00-0.23); BASOPHILS PERCENT AUTO 0 % (0-2); EOSINOPHILS PERCENT AUTO 0 % (0-6); Hematocrit 38.7 % (33.0-51.0); IMMATURE GRAN ABSOLUTE AUTO 0.03 K/mm3 (0.00-0.10); IMMATURE GRAN PERCENT AUTO 0 % (0-1); LYMPHOCYTES ABSOLUTE AUTO 0.73 K/mm3 (0.84-5.20); LYMPHOCYTES PERCENT AUTO 9 % (21-46); MONOCYTES ABSOLUTE AUTO 0.47 K/mm3 (0.16-1.47); MONOCYTES PERCENT AUTO 6 % (4-13); Mean Corpuscular HGB 30.1 pg (26.0-34.0); Mean Corpuscular HGB Conc 36.2 g/dL (31.5-36.5); Mean Corpuscular Volume 83 fL (80-100); Mean Platelet Volume 9.9 fL (9.1-12.4); NEUTROPHILS ABSOLUTE AUTO 6.56 K/mm3 (1.96-9.15); NEUTROPHILS PERCENT AUTO 84 % (41-73); Platelet Count 182 K/mm3 (150-400); RDW Coefficient Variation 13.7 % (11.7-14.2); RDW Standard Deviation 41.1 fL (35.1-46.3); Red Blood Cell Count 4.65 M/mm3 (3.80-5.20); White Blood Cell Count 7.82 K/mm3 (4.00-11.30)
[2024-10-28] MEDS ORDERED: NS 1,000 ML IV SCH (05:10)
[2024-10-28 05:22] LABS: Source, Urine Clean Catch
[2024-10-28 05:24] LABS: Albumin, Blood 3.1 g/dL (3.4-5.0); Albumin/Globulin Ratio 0.8 (0.8-1.8); Bilirubin, Total 1.7 mg/dL (0.1-1.0); Bun/Creatinine Ratio 10.8 (12.0-20.0); Creatinine, Blood 0.46 mg/dL (0.40-1.00); Potassium, Blood 3.4 mmol/L (3.5-5.5); Total Protein, Blood 7.1 g/dL (6.4-8.2)
[2024-10-28 05:30] LABS: Appearance, Urine Clear (Clear); Bilirubin, Urine Neg (Neg); Blood, Urine Neg (Neg); Color, Urine Yellow (P-Yellow); Glucose Qualitative, Urine 4+ (Neg); Ketones, Urine 2+ (Neg); Leukocyte Esterase, Urine Neg (Neg); Nitrite, Urine Neg (Neg); Protein, Urine Neg (Neg); Specific Gravity, Urine 1.005 (1.003-1.022); Urobilinogen, Urine 1+ (Normal); pH, Urine 6.5 (5.0-8.0)
[2024-10-28 06:08] LABS: Influenza A, PCR NEGATIVE (NEGATIVE); Influenza B, PCR NEGATIVE (NEGATIVE); Resp Syncytial Virus, PCR NEGATIVE (NEGATIVE); SARS-Cov-2 (COVID-19) PCR, MMC NEGATIVE (NEGATIVE)
[2024-10-28] MEDS ORDERED: Ketorolac Tromethamine 30mg Vial IV ONE (06:25)
[2024-10-28] MEDS ORDERED: Ondansetron HCl 2 MG / ML 2ML Vial IV ONE (06:35)
[2024-10-28 07:30] VITALS: BP 104/62
[2024-10-28] MEDS ORDERED: RX Prepack 2 Tabs Ondansetron ODT 4MG UD ONE (07:40)
[2024-10-28] MEDS ORDERED: RX Prepack 6 Tabs Oxycodone 5mg UD ONE (07:40)
[2024-10-29 17:10] LABS: HEPATITIS A ANTIBODY, IGM Negative (Negative); HEPATITIS B CORE ANTIBODY, IGM Negative (Negative); HEPATITIS B SURFACE ANTIGEN Negative (Negative); HEPATITIS C AB CIA INTERP Negative (Negative); HEPATITIS C ANTIBODY CIA INDEX 0.15 IV
== END 2024-10-28 07:56 | disposition home or self-care (01) ==
LOC: ER 04:50
PROVIDERS: Emergency Medicine
DX: R07.89 Other chest pain (principal); E86.0 Dehydration; E13.65 Other specified diabetes mellitus with hyperglycemia; E80.6 Other disorders of bilirubin metabolism; R74.01 Elevation of levels of liver transaminase levels; Z59.89 Other problems related to housing and economic circumstances; J44.9 Chronic obstructive pulmonary disease, unspecified; Z88.0 Allergy status to penicillin; Z88.2 Allergy status to sulfonamides; Z88.5 Allergy status to narcotic agent; Z88.8 Allergy status to other drugs, medicaments and biological substances; Z79.85 Long-term (current) use of injectable non-insulin antidiabetic drugs; Z79.4 Long term (current) use of insulin; Z79.890 Hormone replacement therapy; Z79.899 Other long term (current) drug therapy; E13.43 Other specified diabetes mellitus with diabetic autonomic (poly)neuropathy; K31.84 Gastroparesis; E03.9 Hypothyroidism, unspecified; I11.0 Hypertensive heart disease with heart failure; I50.9 Heart failure, unspecified; G47.33 Obstructive sleep apnea (adult) (pediatric); Z87.891 Personal history of nicotine dependence
CPT/HCPCS: 0241U; 71046; 76705; 80053; 80074; 81003; 83690; 84484; 85025; 93005; 93010; 96374; 96375; 99285-25; A9270; J1885; J2405; J7030

== ENCOUNTER 2024-11-03 21:47 | Emergency (ER) | payer OTHER ==
[~2024-11-03] VITALS: Ht 149.9 cm; Wt 68.0 kg
[2024-11-03 22:35] LABS: Source, Urine Clean Catch
[2024-11-03 22:44] LABS: Bilirubin, Urine Neg (Neg); Blood, Urine Neg (Neg); Glucose Qualitative, Urine 4+ (Neg); Ketones, Urine Neg (Neg); Leukocyte Esterase, Urine Neg (Neg); Nitrite, Urine Neg (Neg); Protein, Urine Neg (Neg); Urobilinogen, Urine NORM (Normal); pH, Urine 6.5 (5.0-8.0)
[2024-11-03 22:53] LABS: BASOPHILS ABSOLUTE AUTO 0.03 K/mm3 (0.00-0.23); BASOPHILS PERCENT AUTO 1 % (0-2); EOSINOPHILS PERCENT AUTO 0 % (0-6); Hematocrit 36.7 % (33.0-51.0); Hemoglobin 12.7 g/dL (11.5-16.0); IMMATURE GRAN ABSOLUTE AUTO 0.03 K/mm3 (0.00-0.10); IMMATURE GRAN PERCENT AUTO 1 % (0-1); LYMPHOCYTES ABSOLUTE AUTO 2.05 K/mm3 (0.84-5.20); LYMPHOCYTES PERCENT AUTO 41 % (21-46); MONOCYTES ABSOLUTE AUTO 0.46 K/mm3 (0.16-1.47); MONOCYTES PERCENT AUTO 9 % (4-13); Mean Corpuscular HGB 29.6 pg (26.0-34.0); Mean Corpuscular HGB Conc 34.6 g/dL (31.5-36.5); Mean Corpuscular Volume 86 fL (80-100); Mean Platelet Volume 9.4 fL (9.1-12.4); NEUTROPHILS ABSOLUTE AUTO 2.38 K/mm3 (1.96-9.15); NEUTROPHILS PERCENT AUTO 48 % (41-73); Platelet Count 203 K/mm3 (150-400); RDW Coefficient Variation 13.2 % (11.7-14.2); RDW Standard Deviation 40.2 fL (35.1-46.3); Red Blood Cell Count 4.29 M/mm3 (3.80-5.20); White Blood Cell Count 4.95 K/mm3 (4.00-11.30)
[2024-11-03 22:55] LABS: Appearance, Urine Clear (Clear); Color, Urine Pale Yellow (P-Yellow)
[2024-11-03 23:12] LABS: Albumin, Blood 3.1 g/dL (3.4-5.0); Albumin/Globulin Ratio 0.8 (0.8-1.8); Bilirubin, Total 0.4 mg/dL (0.1-1.0); Calcium, Blood 8.9 mg/dL (8.5-10.1); Creatinine, Blood 0.5 mg/dL (0.40-1.00); Globulin, Blood 3.7 g/dL (2.2-4.0); Phosphorus, Blood 4.9 mg/dL (2.5-4.9); Potassium, Blood 4.8 mmol/L (3.5-5.5); Total Protein, Blood 6.8 g/dL (6.4-8.2)
[2024-11-03] MEDS ORDERED: NS 1,000 ML IV SCH (23:25)
[2024-11-03 23:47] LABS: Beta-hydroxybutyrate 1.2 mg/dL (0.2-2.8)
[2024-11-03 23:50] LABS: Base Excess Venous 0.6 mmol/L; Bicarbonate Venous 24.8 mmol/L (24.0-30.0); PCO2 Venous 42.6 mmHg (38-42); pH Blood Venous 7.39 (7.34-7.37)
[2024-11-04] MEDS ORDERED: Metoclopramide HCl 5MG / ML 2ML Vial IV ONE (00:05)
[2024-11-04] MEDS ORDERED: Insulin Regular 100 Unit/ML 1ML Dose IV ONE ×2 (00:10→02:15)
[2024-11-04] MEDS ORDERED: DiphenhydrAMINE HCl 50 MG/ML 1ML Vial IV ONE (01:35)
[2024-11-04] MEDS ORDERED: Prochlorperazine Edisylate 10 mg Vial IV ONE (01:35)
[2024-11-04 01:36] LABS: Glucose, Blood 403 mg/dL (70-99)
[2024-11-04 02:30] VITALS: BP 109/66
[2024-11-04] MEDS ORDERED: NS 1,000 ML IV SCH (02:35)
[2024-11-04 02:52] LABS: Bun/Creatinine Ratio 21.7 (12.0-20.0); Calcium, Blood 9.3 mg/dL (8.5-10.1); Creatinine, Blood 0.51 mg/dL (0.40-1.00); Potassium, Blood 4.3 mmol/L (3.5-5.5)
== END 2024-11-04 03:00 | disposition home or self-care (01) ==
LOC: ER 21:47
PROVIDERS: Emergency Medicine; Physician Assistant
DX: E10.65 Type 1 diabetes mellitus with hyperglycemia (principal); R81 Glycosuria; R00.0 Tachycardia, unspecified; G47.33 Obstructive sleep apnea (adult) (pediatric); E03.9 Hypothyroidism, unspecified; J44.9 Chronic obstructive pulmonary disease, unspecified; E10.43 Type 1 diabetes mellitus with diabetic autonomic (poly)neuropathy; E10.40 Type 1 diabetes mellitus with diabetic neuropathy, unspecified; Z87.891 Personal history of nicotine dependence; Z79.4 Long term (current) use of insulin; Z79.899 Other long term (current) drug therapy; Z88.0 Allergy status to penicillin; Z88.2 Allergy status to sulfonamides; Z88.1 Allergy status to other antibiotic agents; Z88.5 Allergy status to narcotic agent; Z88.8 Allergy status to other drugs, medicaments and biological substances
CPT/HCPCS: 80048; 80053; 81003; 82010; 82803; 82947; 83735; 84100; 85025; 93005; 93010; 96374; 96375; 99285-25; J0780; J1200; J1815; J2765; J7030

== ENCOUNTER → 2024-12-01 | Outpatient (CLI) | payer OTHER ==
[2024-12-02 11:40] LABS: Bacterial Vaginosis PCR Negative (NEGATIVE); Candida Group, PCR NOT DETECTED (NOT DETECT); Candida glabrata-krusei, PCR NOT DETECTED (NOT DETECT)
== END ==
LOC: LAB 15:14 → LAB SHORT 15:14
PROVIDERS: Physician Assistant
DX: N89.8 Other specified noninflammatory disorders of vagina (principal)
CPT/HCPCS: 81515

== ENCOUNTER 2024-12-18 10:42 | Day surgery (SDC) | payer OTHER ==
[~2024-12-18] VITALS: Ht 149.9 cm; Wt 64.6 kg
[~2024-12-18 10:42] MED LIST changes: +Lactated Ringer's 1,000 ML IV ONE; +Lidocaine HCl 2% 10 ML SDA ONE
[2024-12-18] MEDS ORDERED: PREGABALIN75 MG PO (11:45)
[2024-12-18] MEDS ORDERED: VRAYLAR1.5 MG (11:47)
[2024-12-18] MEDS ORDERED: DESVENLAFAXINE100 M3 PO (11:47)
[2024-12-18] MEDS ORDERED: TRAZ50 PO (11:48)
[2024-12-18] MEDS ORDERED: Clindamycin 900mg in D5W 50ML 50 ML IV ONE (11:50)
[2024-12-18] MEDS ORDERED: PRED20 (11:52)
[2024-12-18] MEDS ORDERED: Lactated Ringer's 1,000 ML IV ONE ×2 (11:55→14:44)
[2024-12-18] MEDS ORDERED: Scopolamine Hydrobromide Patch ONE (12:28)
[2024-12-18] MEDS ORDERED: Acetaminophen 500 MG Tab ONE (12:29)
[2024-12-18] MEDS ORDERED: propofoL 150 ML IV ONE (12:30)
[2024-12-18] MEDS ORDERED: FentaNYL Citrate 50 MCG/ML 2 ML Injection ONE ×2 (12:38→15:14)
[2024-12-18] MEDS ORDERED: Ondansetron HCl 2 MG / ML 2ML Vial ONE ×2 (12:46→15:14)
[2024-12-18] MEDS ORDERED: Dexamethasone Sod Phos 10 MG/ML 1ML VIAL ONE (12:46)
[2024-12-18] MEDS ORDERED: Metoclopramide HCl 5MG / ML 2ML Vial ONE (12:46)
[2024-12-18] MEDS ORDERED: Ketorolac Tromethamine 30mg Vial ONE (12:47)
[2024-12-18] MEDS ORDERED: Phenylephrine HCl 100 MCG/ML-NS 10MLSYR (1MG/10ML) ONE ×2 (12:50→14:20)
[2024-12-18] MEDS ORDERED: Vasopressin 20 UNITS/ML 1ML Vial ONE (13:21)
[2024-12-18] MEDS ORDERED: Bupivacaine 0.5% W/EPI 1:200000 SDV 10ML INJ ONE (14:56)
[2024-12-18] MEDS ORDERED: Bupivacaine 0.5% W/EPI 1:200000 SDV 30 ML Vial ONE (14:58)
[2024-12-18 15:37] VITALS: BP 94/54
--- NOTE | 2024-12-18 16:21 | NUR ---
12/18/24 1621 Marlys Lofton PT DIDN'T REALIZE THAT SHE NEEDED A PAIR OF CRUTCHES FOR GOING HOME. THIS RN CALLED [facility] AND ASKED IF THEY HAD CRUTCHES FOR SALE. THIS RN EXPLAINED TO PT THAT SHE IS NON-WEIGHT BEARING AND THAT SHE NEEDS A DEVICE TO GET AROUND HER ONE STORY APARTMENT. THIS RN ALSO SPOKE TO HER FRIEND WHO WAS PICKING HER UP, [place], AND TOLD HER THAT SHE NEEDS TO FOLLOW THE DISCHARGE INSTRUCTIONS PER DOCTOR'S ORDERS TO UTILIZE CRUTCHES AT HOME WHILE TRANSFERING SAFELY. THIS RN CALLED [facility] TO TELL THEM THAT THIS PT WOULD BE SHOWING UP SOON BEFORE THEY CLOSE AT 1700 TONIGHT. ALL QUESTIONS WERE ANSWERED, CONCERNS ADDRESSED. PT COLLECTED ALL PERSONAL BELONGINGS, AND WAS ASSISTED VIA W/C WITH HELP FROM NURSE CASTAÑEDA AND NURSE LANDEROS. PT PLEASANT AND CALM. VSS.
== END 2024-12-18 16:12 | disposition home or self-care (01) ==
LOC: ORSCSDS 10:42
PROVIDERS: Podiatrist Foot & Ankle Surgery
PROC: 0QSR04Z Reposition Left Toe Phalanx with Internal Fixation Device, Open Approach (ICD-10-PCS; principal; 2024-12-18 12:00)
DX: M20.12 Hallux valgus (acquired), left foot (principal); M21.6X2 Other acquired deformities of left foot; I10 Essential (primary) hypertension; E11.40 Type 2 diabetes mellitus with diabetic neuropathy, unspecified; Z79.4 Long term (current) use of insulin; Z79.899 Other long term (current) drug therapy; G47.33 Obstructive sleep apnea (adult) (pediatric); Z87.891 Personal history of nicotine dependence; E03.9 Hypothyroidism, unspecified; I50.9 Heart failure, unspecified; F41.9 Anxiety disorder, unspecified
CPT/HCPCS: 82947; A9270; C1713; J1100; J1885; J2003; J2371; J2405; J2704; J2765; J3010; J7120

== ENCOUNTER 2024-12-18 21:46 | Emergency (ER) | payer OTHER ==
[~2024-12-18] VITALS: Ht 149.9 cm; Wt 65.8 kg
[~2024-12-18 21:46] MED LIST changes: +DESVENLAFAXINE100 M3; -Lactated Ringer's 1,000 ML IV ONE; -Lidocaine HCl 2% 10 ML SDA ONE; +PRED20; +PREGABALIN75 MG; +TRAZ50; +VRAYLAR1.5 MG
[2024-12-18 22:02] VITALS: BP 129/95
== END 2024-12-18 23:03 | disposition home or self-care (01) ==
LOC: ER 21:46
DX: Z47.89 Encounter for other orthopedic aftercare (principal); Z88.0 Allergy status to penicillin; Z88.2 Allergy status to sulfonamides; Z88.1 Allergy status to other antibiotic agents; Z88.5 Allergy status to narcotic agent; Z79.4 Long term (current) use of insulin; Z79.899 Other long term (current) drug therapy; Z79.891 Long term (current) use of opiate analgesic; E11.9 Type 2 diabetes mellitus without complications; J44.9 Chronic obstructive pulmonary disease, unspecified; I50.9 Heart failure, unspecified
CPT/HCPCS: 12001; 99283-25

== ENCOUNTER 2024-12-23 08:21 | Emergency (ER) | payer OTHER ==
[~2024-12-23] VITALS: Ht 149.9 cm; Wt 65.8 kg
[~2024-12-23 08:21] MED LIST changes: -DESVENLAFAXINE100 M3; +DESVENLAFAXINE100 M3 PO; -PREGABALIN75 MG; +PREGABALIN75 MG PO; -TRAZ50; +TRAZ50 PO
[2024-12-23] MEDS ORDERED: HYDROcodone 5-APAP 325 TAB PO ONE (09:35)
[2024-12-23 10:05] LABS: Source, Urine Clean Catch
[2024-12-23 10:07] LABS: Appearance, Urine Hazy (Clear); Bilirubin, Urine Neg (Neg); Blood, Urine Neg (Neg); Color, Urine Yellow (P-Yellow); Glucose Qualitative, Urine 2+ (Neg); Ketones, Urine 3+ (Neg); Leukocyte Esterase, Urine 3+ (Neg); Nitrite, Urine Neg (Neg); Protein, Urine 2+ (Neg); Specific Gravity, Urine 1.025 (1.003-1.022); Urobilinogen, Urine NORM (Normal)
[2024-12-23 10:17] LABS: Bacteria Many /hpf; Red Blood Cells, Urine Not Seen /hpf (0-2); Squamous Epithelial Cells Few /hpf (Few); White Blood Cells, Urine 25-50 /hpf (0-5)
[2024-12-23 11:07] LABS: Bacterial Vaginosis PCR Negative (NEGATIVE); Candida Group, PCR NOT DETECTED (NOT DETECT); Candida glabrata-krusei, PCR NOT DETECTED (NOT DETECT)
[2024-12-23] MEDS ORDERED: METR500 PO (11:14)
[2024-12-23] MEDS ORDERED: MetroNIDAZOLE 500 MG Tab PO ONE (11:15)
[2024-12-23 11:18] VITALS: BP 112/84
== END 2024-12-23 11:31 | disposition home or self-care (01) ==
LOC: ER 08:21
PROVIDERS: Emergency Medicine
DX: A59.01 Trichomonal vulvovaginitis (principal); E10.40 Type 1 diabetes mellitus with diabetic neuropathy, unspecified; E10.43 Type 1 diabetes mellitus with diabetic autonomic (poly)neuropathy; K31.84 Gastroparesis; J44.9 Chronic obstructive pulmonary disease, unspecified; I50.9 Heart failure, unspecified; E03.9 Hypothyroidism, unspecified; G47.33 Obstructive sleep apnea (adult) (pediatric); Z87.891 Personal history of nicotine dependence; Z88.0 Allergy status to penicillin; Z88.2 Allergy status to sulfonamides; Z88.5 Allergy status to narcotic agent; Z88.8 Allergy status to other drugs, medicaments and biological substances; Z79.85 Long-term (current) use of injectable non-insulin antidiabetic drugs; Z79.4 Long term (current) use of insulin; Z79.890 Hormone replacement therapy; Z79.899 Other long term (current) drug therapy
CPT/HCPCS: 81001; 81515; 87086; 99283; A9270

== ENCOUNTER 2024-12-27 08:17 | Inpatient (IN) | payer OTHER ==
[~2024-12-27] VITALS: Ht 149.9 cm; Wt 65.0 kg
[2024-12-27 09:13] LABS: BASOPHILS ABSOLUTE AUTO 0.05 K/mm3 (0.00-0.23); BASOPHILS PERCENT AUTO 0 % (0-2); EOSINOPHILS PERCENT AUTO 0 % (0-6); Hematocrit 45.7 % (33.0-51.0); IMMATURE GRAN ABSOLUTE AUTO 0.07 K/mm3 (0.00-0.10); IMMATURE GRAN PERCENT AUTO 1 % (0-1); LYMPHOCYTES ABSOLUTE AUTO 2.18 K/mm3 (0.84-5.20); LYMPHOCYTES PERCENT AUTO 17 % (21-46); MONOCYTES ABSOLUTE AUTO 0.36 K/mm3 (0.16-1.47); MONOCYTES PERCENT AUTO 3 % (4-13); Mean Corpuscular HGB 28.6 pg (26.0-34.0); Mean Corpuscular Volume 82 fL (80-100); Mean Platelet Volume 8.9 fL (9.1-12.4); NEUTROPHILS ABSOLUTE AUTO 9.87 K/mm3 (1.96-9.15); NEUTROPHILS PERCENT AUTO 79 % (41-73); Platelet Count 318 K/mm3 (150-400); RDW Coefficient Variation 13.6 % (11.7-14.2); RDW Standard Deviation 39.6 fL (35.1-46.3); White Blood Cell Count 12.53 K/mm3 (4.00-11.30)
[2024-12-27] MEDS ORDERED: FentaNYL Citrate 50 MCG/ML 2 ML Injection IV ONE ×2 (09:20→18:00)
[2024-12-27] MEDS ORDERED: NS 1,000 ML IV SCH ×2 (09:20→16:05)
[2024-12-27] MEDS ORDERED: Ondansetron HCl 2 MG / ML 2ML Vial IV ONE (09:20)
[2024-12-27 09:33] LABS: Albumin, Blood 3.4 g/dL (3.4-5.0); Albumin/Globulin Ratio 0.8 (0.8-1.8); Bilirubin, Total 0.4 mg/dL (0.1-1.0); Bun/Creatinine Ratio 18.5 (12.0-20.0); Calcium, Blood 9.4 mg/dL (8.5-10.1); Creatinine, Blood 0.6 mg/dL (0.40-1.00); Globulin, Blood 4.2 g/dL (2.2-4.0); Potassium, Blood 3.7 mmol/L (3.5-5.5); Total Protein, Blood 7.6 g/dL (6.4-8.2)
[2024-12-27 12:29] LABS: Source, Urine Clean Catch
[2024-12-27 12:36] LABS: Appearance, Urine Clear (Clear); Blood, Urine 1+ (Neg); Color, Urine Amber (P-Yellow); Glucose Qualitative, Urine 2+ (Neg); Ketones, Urine 1+ (Neg); Leukocyte Esterase, Urine 2+ (Neg); Nitrite, Urine Pos (Neg); Protein, Urine 2+ (Neg); Specific Gravity, Urine 1.015 (1.003-1.022); Urobilinogen, Urine 1+ (Normal)
[2024-12-27 12:47] LABS: Bilirubin, Urine 1+ (Neg)
[2024-12-27 12:48] LABS: Bacteria Few /hpf; Red Blood Cells, Urine 0-2 /hpf (0-2); Squamous Epithelial Cells Few /hpf (Few)
[2024-12-27] MEDS ORDERED: CefTRIAXone Sodium 1,000 MG in NS 100 ML IV ONE (13:45)
[2024-12-27] MEDS ORDERED: Temazepam 15 MG Cap PO PRN (16:05)
[2024-12-27] MEDS ORDERED: Ondansetron HCl 2 MG / ML 2ML Vial IV PRN (16:05)
[2024-12-27] MEDS ORDERED: TraZODone HCl 50 MG Tab PO PRN (16:15)
[2024-12-27] MEDS ORDERED: MetroNIDAZOLE 500MG/NS 100 ml 100 ML IV SCH (16:22)
[2024-12-27] MEDS ORDERED: Insulin Human Lispro 100 Units/ML 3ML Syringe SC SCH ×3 (16:30→21:00)
[2024-12-27] MEDS ORDERED: Pantoprazole Sodium 40 MG Injection IV SCH (16:30)
[2024-12-27] MEDS ORDERED: Carvedilol 6.25 MG Tab PO SCH (17:00)
[2024-12-27] MEDS ORDERED: Insulin Glargine-Yfgn 100 Unit/mL 3 ML SYR SC SCH (17:00)
[2024-12-27] MEDS ORDERED: HYDROcodone 5-APAP 325 TAB PO PRN (17:10)
[2024-12-27] MEDS ORDERED: FentaNYL Citrate 50 MCG/ML 2 ML Injection IV PRN (18:00)
[2024-12-27] MEDS ORDERED: Tiotropium Bromide 2.5 MCG/ACT MIST INHAL (10 ACT/4 GM) INH SCH (18:30)
[2024-12-27] MEDS ORDERED: TEMA15 PO (19:14)
[2024-12-27] MEDS ORDERED: EUTHYROX125 MCG PO (19:15)
[2024-12-27] MEDS ORDERED: VRAYLAR1.5 MG PO (19:22)
[2024-12-27] MEDS ORDERED: LOSARTAN-HCTZ1 EACH PO (19:25)
[2024-12-27] MEDS ORDERED: CARV6.25 PO (19:27)
[2024-12-27 19:59] VITALS: BP 126/92
[2024-12-27] MEDS ORDERED: Pregabalin 75 MG Cap PO SCH (21:00)
[2024-12-27] MEDS ORDERED: Liothyronine Sodium 5 MCG Tab PO SCH (21:00)
[2024-12-27] MEDS ORDERED: Lactobacil 2-S.Thermo-Bifido 1 1 Cap PO SCH (21:00)
[2024-12-27] MEDS ORDERED: LEVSOD150 PO (23:10)
[2024-12-27] MEDS ORDERED: MIRALAX17 GM PO (23:12)
[2024-12-28 05:33] LABS: BASOPHILS ABSOLUTE AUTO 0.02 K/mm3 (0.00-0.23); BASOPHILS PERCENT AUTO 0 % (0-2); EOSINOPHILS PERCENT AUTO 0 % (0-6); Hematocrit 38.6 % (33.0-51.0); Hemoglobin 13.1 g/dL (11.5-16.0); IMMATURE GRAN ABSOLUTE AUTO 0.04 K/mm3 (0.00-0.10); IMMATURE GRAN PERCENT AUTO 1 % (0-1); LYMPHOCYTES ABSOLUTE AUTO 2.67 K/mm3 (0.84-5.20); LYMPHOCYTES PERCENT AUTO 33 % (21-46); MONOCYTES ABSOLUTE AUTO 0.36 K/mm3 (0.16-1.47); MONOCYTES PERCENT AUTO 4 % (4-13); Mean Corpuscular HGB 28.4 pg (26.0-34.0); Mean Corpuscular HGB Conc 33.9 g/dL (31.5-36.5); Mean Corpuscular Volume 84 fL (80-100); Mean Platelet Volume 9.2 fL (9.1-12.4); NEUTROPHILS PERCENT AUTO 62 % (41-73); Platelet Count 236 K/mm3 (150-400); RDW Coefficient Variation 14.1 % (11.7-14.2); RDW Standard Deviation 41.8 fL (35.1-46.3); Red Blood Cell Count 4.62 M/mm3 (3.80-5.20); White Blood Cell Count 8.09 K/mm3 (4.00-11.30)
[2024-12-28 05:51] LABS: Albumin, Blood 2.7 g/dL (3.4-5.0); Albumin/Globulin Ratio 0.8 (0.8-1.8); Bilirubin, Total 0.3 mg/dL (0.1-1.0); Bun/Creatinine Ratio 12.2 (12.0-20.0); Calcium, Blood 8.6 mg/dL (8.5-10.1); Creatinine, Blood 0.58 mg/dL (0.40-1.00); Globulin, Blood 3.4 g/dL (2.2-4.0); Potassium, Blood 3.6 mmol/L (3.5-5.5); Total Protein, Blood 6.1 g/dL (6.4-8.2)
[2024-12-28] MEDS ORDERED: Levothyroxine Sodium 0.15 MG Tab PO SCH (06:00)
[2024-12-28 07:11] VITALS: BP 109/64
[2024-12-28] MEDS ORDERED: Estradiol 1 MG Tab PO SCH (09:00)
[2024-12-28] MEDS ORDERED: Losartan Potassium 50 MG Tab PO SCH (09:00)
[2024-12-28] MEDS ORDERED: Enoxaparin 40 MG/0.4 ML SYR SC SCH (09:00)
[2024-12-28] MEDS ORDERED: CefTRIAXone Sodium 1,000 MG in NS 100 ML IV SCH (12:00)
--- NOTE | 2024-12-28 12:38 | NUR ---
RN CONSULTED WITH DR. LOCKE, AND CHARGE NURSE MARKY. DR. LOCKE STATES THAT PT IS A LOW SUICIDE RISK AND THERE IS NO NEED FOR A 1:1 SITTER. THIS RN WILL UPDATE ORDERS.
[2024-12-28 16:07] VITALS: BP 118/75
[2024-12-28 19:20] VITALS: BP 118/88
--- NOTE | 2024-12-28 19:27 | NUR ---
PT IS A&0 X4. ROOM AIR. SUICIDAL RISK MODIFIED PER DR. LOCKE, 1:1 SITTER DISCONTINUED. PT LEFT LEG REMAINS IN BOOT. SBA TO BSC. DIET ADVANCED TO SOFT, MOIST. TOLERATING PO INTAKE WELL. PT STATES SHE IS NERVOUS ABOUT RETURNING HOME BECAUSE SHE IS CONCERNED THAT SHE HASN'T HAD HER ANTIDEPRESSANT SINCE SATURDAY MORNING. TAKES PILLS WHOLE WITH WATER. DISCHARGE CONCERNS INCLUDE PAYING FOR RENT (SHE HAS HAD HELP FROM [facility] X 6MONTHS), AND HOW WILL SHE MOVE TO [place]? SHE HAS LITTLE SUPPORT. PT IS REQUESTING CARE COORDINATION HELP TO FIND A RESOURCE TO PAY THIS MONTH'S RENT.
[2024-12-29 02:31] VITALS: BP 120/81
--- NOTE | 2024-12-29 04:54 | NUR ---
NO ACUTE CHANGES, POM MEDICATIONS NEED TO BE BROUGHT IN FOR HER ANTIDEPRESSANTS, PATIENT INFORMED, CALL LIGHT WITH IN REACH, CLEARLY MAKES NEEDS KNOWN, WILL RELAY TO PM RN
[2024-12-29 07:21] VITALS: BP 123/84
[2024-12-29] MEDS ORDERED: CARIPRAZINE 1.5 MG PO SCH (09:00)
[2024-12-29] MEDS ORDERED: DESVENLAFAXINE ER 100 MG PO SCH (09:00)
[2024-12-29] MEDS ORDERED: Docusate Sodium/Senna 1 Tab PO PRN (11:00)
[2024-12-29] MEDS ORDERED: Polyethylene Glycol 3350 17 gm PO SCH (11:00)
[2024-12-29] MEDS ORDERED: Lactulose 20 GM/30 ML UDC PO SCH (13:00)
[2024-12-29] MEDS ORDERED: Ipratropium Bromide INH 0.02% 0.5 mg/2.5ML Vial INH PRN (15:30)
[2024-12-29] MEDS ORDERED: Albuterol 2.5 MG/3 ML VIAL INH PRN (15:30)
[2024-12-29] MEDS ORDERED: NS 250 ML IV PRN (16:35)
[2024-12-29 16:45] VITALS: BP 136/100
--- NOTE | 2024-12-29 16:45 | NUR ---
Spiritual Care Visit. Pt. is awake in bed and welcomes my visit. Pt. displays evidence of anxiety about discharge complications. Pt. verbalizes that she has to vacate her home by January 24, 2025. Pt. is also anxious about the condition of her pets. The Pt. verbalized that she has a place go to in [place], but because of her post surgery limitations, she doesn't know how she can clean out, pack and move. Pt. verbalized whether a hospital social director would have references and resources. This signal processing engineer listened with empathy and a calming presence. Prayed for the Pt. Pt. verbalized gratitude for the spiritual care visit.
--- NOTE | 2024-12-29 17:54 | NUR ---
PATIENT A/OX4, UP TO BSC WITH SBA. LLE IN POST OP BOOT AND PATIENT IS NWB TO THAT LEG. DRESSING REMAINS C/D/I. REPORTS NO BM SINCE SATURDAY AND BOWEL CARE ORDERED TODAY TO TREAT. REPORTS GOOD PAIN CONTROL WITH NORCO X2 THIS SHIFT. TOLERATING ADA DIET. SCHEDULED HUMALOG HELD AT DINNER AT PATIENT REQUEST BLOOD SUGAR WAS 87 AND PATIENT WAS "FEELING LOW." NO NEW CONCERNS THIS SHIFT. PATIENT PLEASANT AND COOPERATIVE AND ABLE TO MAKE NEEDS KNOWN.
[2024-12-29 19:20] VITALS: BP 133/88
[2024-12-29] MEDS ORDERED: Metoclopramide HCl 10 MG Tab PO SCH (23:00)
--- NOTE | 2024-12-30 03:58 | NUR ---
CLEARLY MAKES NEEDS KNOWN, ALERT AND ORIENTED X4, SHOWERED TODAY, NO BM THIS PM, PATIIL[place]NAN WANTING TO SPEAK TO RELATIONS COORDINATOR FOR HOME HELP, PATIENT CONCERNED SHE IS GOING TO BE UNABLE TO CARE FOR HERSELF AND DOG. CALL LIGHT WITH IN REACH, WILL RELAY TO AM RN
[2024-12-30 04:19] VITALS: BP 119/83
[2024-12-30 07:44] VITALS: BP 130/80
[2024-12-30] MEDS ORDERED: CARIPRAZINE 1.5 MG PO SCH (09:00)
[2024-12-30] MEDS ORDERED: VISBIOME 112.51 EACH PO (12:00)
[2024-12-30] MEDS ORDERED: CEFD300 PO (12:01)
[2024-12-30] MEDS ORDERED: SENNA PLUS PO (12:03)
[2024-12-30] MEDS ORDERED: METR500 PO (12:04)
--- NOTE | 2024-12-30 14:00 | NUR ---
PATIENT D/C'D TO HOME VIA TAX[facility]. TAXI TO STOP AND [facility] TO FINE [employer]EWEL[employer] SALES [employer]OCIATE PRESCRIPTIONS. DC INSTRUCTIONS AND EDUCATION DISCUSSED WITH PATIENT AND COPY PROVIDED. PATIENT DENIES ANY FURTHER QUESTIONS OR CONCERS. HOME HEALTH TO CONTACT PATIENT.
== END 2024-12-30 13:59 | disposition home or self-care (01) | DRG 392 ==
LOC: ER 08:17 → MEDS 16:02
PROVIDERS: Physician Assistant; ADMIT Hospitalist
DX: K57.30 Diverticulosis of large intestine without perforation or abscess without bleeding (principal); N39.0 Urinary tract infection, site not specified; J82.83 Eosinophilic asthma; I50.9 Heart failure, unspecified; E03.9 Hypothyroidism, unspecified; E10.40 Type 1 diabetes mellitus with diabetic neuropathy, unspecified; G47.33 Obstructive sleep apnea (adult) (pediatric); J44.9 Chronic obstructive pulmonary disease, unspecified; Z96.643 Presence of artificial hip joint, bilateral; Z96.652 Presence of left artificial knee joint; K31.84 Gastroparesis; E10.65 Type 1 diabetes mellitus with hyperglycemia; F12.90 Cannabis use, unspecified, uncomplicated; F41.1 Generalized anxiety disorder; F32.9 Major depressive disorder, single episode, unspecified; N95.9 Unspecified menopausal and perimenopausal disorder; K21.9 Gastro-esophageal reflux disease without esophagitis; G47.00 Insomnia, unspecified; K59.00 Constipation, unspecified; E10.42 Type 1 diabetes mellitus with diabetic polyneuropathy; D72.829 Elevated white blood cell count, unspecified; K29.70 Gastritis, unspecified, without bleeding; Z98.51 Tubal ligation status; Z90.710 Acquired absence of both cervix and uterus; Z98.890 Other specified postprocedural states; Z88.0 Allergy status to penicillin; Z88.2 Allergy status to sulfonamides; Z88.1 Allergy status to other antibiotic agents; Z88.5 Allergy status to narcotic agent; Z88.8 Allergy status to other drugs, medicaments and biological substances; Z79.899 Other long term (current) drug therapy; Z79.85 Long-term (current) use of injectable non-insulin antidiabetic drugs; Z79.890 Hormone replacement therapy; Z79.52 Long term (current) use of systemic steroids; Z79.51 Long term (current) use of inhaled steroids; Z87.19 Personal history of other diseases of the digestive system; Z90.722 Acquired absence of ovaries, bilateral; Z90.89 Acquired absence of other organs; Z87.891 Personal history of nicotine dependence; Z87.39 Personal history of other diseases of the musculoskeletal system and connective tissue
CPT/HCPCS: 36415; 74177; 80053; 81001; 82947; 83605; 85025; 87086; 93306; 94640; 94664; 94760; 96361; 96365-59; 96375; 99285-25; A9270; J0696; J1650; J1815; J2405; J2470; J3010; J7030; J7050; Q9967

== ENCOUNTER 2024-12-31 16:13 | Observation (INO) | payer OTHER ==
[~2024-12-31] VITALS: Ht 149.9 cm; Wt 65.8 kg
[~2024-12-31 16:13] MED LIST changes: +CEFD300 PO; +EUTHYROX125 MCG PO; +LEVSOD150 PO; +LOSARTAN-HCTZ1 EACH PO; +SENNA PLUS PO; +TEMA15 PO; +VISBIOME 112.51 EACH PO; +VRAYLAR1.5 MG PO
[2024-12-31] MEDS ORDERED: Ondansetron HCl 2 MG / ML 2ML Vial IV ONE ×2 (16:55→20:30)
[2024-12-31] MEDS ORDERED: HYDROmorphone HCl/Pf 1MG SYR IV ONE (16:55)
[2024-12-31] MEDS ORDERED: Lactulose 20 GM/30 ML UDC PO ONE ×2 (18:40→20:30)
[2024-12-31 18:51] LABS: BASOPHILS ABSOLUTE AUTO 0.04 K/mm3 (0.00-0.23); BASOPHILS PERCENT AUTO 0 % (0-2); EOSINOPHILS PERCENT AUTO 0 % (0-6); Hematocrit 41.3 % (33.0-51.0); IMMATURE GRAN ABSOLUTE AUTO 0.03 K/mm3 (0.00-0.10); IMMATURE GRAN PERCENT AUTO 0 % (0-1); LYMPHOCYTES ABSOLUTE AUTO 2.01 K/mm3 (0.84-5.20); LYMPHOCYTES PERCENT AUTO 21 % (21-46); MONOCYTES ABSOLUTE AUTO 0.33 K/mm3 (0.16-1.47); MONOCYTES PERCENT AUTO 3 % (4-13); Mean Corpuscular HGB 28.5 pg (26.0-34.0); Mean Corpuscular HGB Conc 33.9 g/dL (31.5-36.5); Mean Corpuscular Volume 84 fL (80-100); Mean Platelet Volume 9.5 fL (9.1-12.4); NEUTROPHILS ABSOLUTE AUTO 7.24 K/mm3 (1.96-9.15); NEUTROPHILS PERCENT AUTO 75 % (41-73); Platelet Count 226 K/mm3 (150-400); RDW Coefficient Variation 13.7 % (11.7-14.2); RDW Standard Deviation 41.5 fL (35.1-46.3); Red Blood Cell Count 4.92 M/mm3 (3.80-5.20); White Blood Cell Count 9.65 K/mm3 (4.00-11.30)
[2024-12-31 19:25] LABS: Albumin, Blood 3.1 g/dL (3.4-5.0); Albumin/Globulin Ratio 0.9 (0.8-1.8); Bilirubin, Total 0.3 mg/dL (0.1-1.0); Bun/Creatinine Ratio 20.7 (12.0-20.0); Calcium, Blood 9.2 mg/dL (8.5-10.1); Creatinine, Blood 0.48 mg/dL (0.40-1.00); Globulin, Blood 3.5 g/dL (2.2-4.0); Potassium, Blood 3.8 mmol/L (3.5-5.5); Total Protein, Blood 6.6 g/dL (6.4-8.2)
[2024-12-31] MEDS ORDERED: Pantoprazole Sodium 40 MG Injection IV ONE (20:35)
[2024-12-31] MEDS ORDERED: MetroNIDAZOLE 500 MG Tab PO SCH (21:00)
[2024-12-31] MEDS ORDERED: TraZODone HCl 50 MG Tab PO SCH (21:00)
[2024-12-31] MEDS ORDERED: Cefdinir 300 MG Cap PO SCH (21:00)
[2024-12-31] MEDS ORDERED: Carvedilol 6.25 MG Tab PO SCH (21:00)
[2024-12-31] MEDS ORDERED: Pregabalin 75 MG Cap PO SCH (21:00)
[2025-01-01] MEDS ORDERED: Levothyroxine Sodium 0.15 MG Tab PO SCH (06:00)
[2025-01-01] MEDS ORDERED: Ketorolac Tromethamine 15mg Vial IV ONE ×2 (07:50→13:10)
[2025-01-01] MEDS ORDERED: Magnesium Hydroxide Conc 10 ML UDC PO ONE (07:50)
[2025-01-01] MEDS ORDERED: Glycerin Adult Supp 1 EA PR ONE (07:50)
[2025-01-01] MEDS ORDERED: Insulin Human Lispro 100 Units/ML 3ML Syringe SC SCH (08:30)
[2025-01-01] MEDS ORDERED: Losartan Potassium 50 MG Tab PO SCH (09:00)
[2025-01-01] MEDS ORDERED: Estradiol 1 MG Tab PO SCH (09:00)
[2025-01-01] MEDS ORDERED: Acetaminophen 500 MG Tab PO ONE (13:10)
[2025-01-01] MEDS ORDERED: Polyethylene Glycol 3350 17 gm PO ONE (13:10)
[2025-01-01] MEDS ORDERED: Sod Phosphate/Sod Biphosphate 132 ML BTL PR ONE (13:10)
[2025-01-01] MEDS ORDERED: Insulin Glargine-Yfgn 100 Unit/mL 3 ML SYR SC ONE (17:50)
[2025-01-01] MEDS ORDERED: Acetaminophen 325 MG TABLET PO ONE (21:20)
[2025-01-01] MEDS ORDERED: Ketorolac Tromethamine 15mg Vial IM ONE (21:20)
[2025-01-02] MEDS ORDERED: Bisacodyl 10 MG Supp PR PRN (11:55)
[2025-01-02] MEDS ORDERED: Magnesium Hydroxide Conc 10 ML UDC PO PRN (11:55)
[2025-01-02] MEDS ORDERED: Insulin Glargine-Yfgn 100 Unit/mL 3 ML SYR SC SCH (12:00)
[2025-01-02] MEDS ORDERED: Insulin Regular 100 UNIT/ML 10ML Vial SC SCH (16:30)
[2025-01-02] MEDS ORDERED: Acetaminophen 325 MG TABLET PO PRN (18:40)
[2025-01-02] MEDS ORDERED: Omeprazole 20 MG CapCR PO SCH (19:00)
[2025-01-02] MEDS ORDERED: Ipratropium Bromide INH 0.02% 0.5 mg/2.5ML Vial INH PRN (19:15)
[2025-01-02] MEDS ORDERED: TRULICITY 4.5 MG/0.5 ML SC SCH (19:20)
[2025-01-02 19:43] VITALS: BP 137/87
[2025-01-02] MEDS ORDERED: Lactobacil 2-S.Thermo-Bifido 1 1 Cap PO SCH (21:00)
[2025-01-02] MEDS ORDERED: Sennosides 8.6 MG Tab PO SCH (21:00)
[2025-01-02] MEDS ORDERED: Docusate Sodium 100 MG Cap PO SCH (21:00)
[2025-01-02] MEDS ORDERED: Temazepam 15 MG Cap PO SCH (21:00)
[2025-01-02] MEDS ORDERED: Ibuprofen 400 MG Tab PO PRN (21:45)
[2025-01-03 04:15] VITALS: BP 103/76
--- NOTE | 2025-01-03 06:31 | NUR ---
SHIFT SUMMARY PT SITTING UP IN BED AT START OF SHIFT. PT MEDICATED FOR PAIN AND SLEEPING WELL THROUGH SHIFT. PT PLEASANT AND COOPERATIVE WITH CARE. REWRAPPED SURGICAL WOUND. GAUZE WAS PULLING ON STITCHING. PT CONTENT WITH WRAP. PT SLEPT SOUNDLY THROUGHOUT THE REST OF THE SHIFT, WAKING OCCASIONALLY, THEN GOING BACK TO SLEEP. WILL PASS ON TO DAY SHIFT.
[2025-01-03 07:43] VITALS: BP 106/83
[2025-01-03] MEDS ORDERED: Venlafaxine HCl 75 MG CapCR PO SCH (09:00)
[2025-01-03] MEDS ORDERED: HydroCHLOROthiazide 25 mg Tab PO SCH (09:00)
[2025-01-03] MEDS ORDERED: Losartan Potassium 50 MG Tab PO SCH (09:00)
[2025-01-03] MEDS ORDERED: Enoxaparin 40 MG/0.4 ML SYR SC SCH (09:00)
[2025-01-03] MEDS ORDERED: Ondansetron 4 MG SoluTab MM PRN (13:25)
[2025-01-03 15:10] VITALS: BP 120/70
[2025-01-03] MEDS ORDERED: TraMADol HCl 50 MG Tab PO PRN (17:20)
--- NOTE | 2025-01-03 19:11 | NUR ---
assumed care of pt pt is a/o x 4. this moring pt fsbs was mid 70s pt expressed feelig bad and needing some juice to increse her sugar. pt blood sugar slowly valery, pt able to eat breakfast then feeling better. at noon pt was > 300 and was covered per mar. physical therapt worked with pt today. pt was able to amb pt in rao, pt did very well using crutches and remains non weightbaring. left foot pain cont to increase so boot and dressing were removed. wound looks very good stiches intact and healing. pictures taken and in chart, dr potter notified and medications increased
[2025-01-03 19:29] VITALS: BP 130/91
[2025-01-04 03:19] VITALS: BP 102/68
--- NOTE | 2025-01-04 06:45 | NUR ---
SHIFT SUMMARY PT PLEASANT AND COOPERATIVE WITH CARE. SHE REQUESTED TO HAVE HER DRESSINGS REPLACED BEFORE BED. PT TOLLERATED WELL. PT NEEDED 1U COVERAGE PER EMAR HS. SUGGEST LOWERING TO LOW SLIDING SCALE, PT WOKE UP TO ALARM GOING OFF WITH BLOOD SUGAR AT 69. PT GIVEN SOME SWEET SNACKS, AND BLOOD SUGAR UP TO 185. PT STATED SHE IS FEELING MUCH BETTER. CURRENTLY SLEEPING COMFORTABLY. CALL LIGHT WITHIN REACH.
[2025-01-04 07:37] VITALS: BP 103/76
[2025-01-04] MEDS ORDERED: Polyethylene Glycol 3350 17 gm PO ONE (13:20)
--- NOTE | 2025-01-04 18:28 | NUR ---
ASSUMED CARE OF PT UNEVENTFUL DAY TODAY, PT DOING WELL MINIMAL PAIN TO LEFT FOOT COVERED PER MAR. PODIATRY INTO SEE PT AND STATED PT FOOT LOOKED GOOD AND COULD FOLLOW UP WITH OUT PT MD. PT AWAITING DISCHARGE BUT IS UNABLE TO HAVE BM, PT MEDICATED WITH LAXATIVE AND STOOL SOFTENER. PT UP WITH FWW AND IS CURRENTLY NWB.
--- NOTE | 2025-01-04 18:32 | NUR ---
PT HAS SHOWN TO BE A VERY BRITTLE DIABETIC, WITH CONTINOUS LABILE SWINGS. PT HAVING A CGM HAS BEEN VERY HELPFUL IN PREDICTING WHERE HER BLOOD SUGAR LEVELS ARE. CLOSE MONITORING WILL BE NECESSARY, INSULIN HAS BEEN HELD SINCE THIS MORNING YET JUICE NEEDED TO BE GIVEN THIS AFTERNOON. CURRENTLY PT BLOOD SUGAR IS IN THE 200S. CONCERNES WITH BE PASSED IN TO [facility]
[2025-01-04 19:04] VITALS: BP 130/79
[2025-01-04] MEDS ORDERED: Polyethylene Glycol 3350 17 gm PO SCH (21:00)
--- NOTE | 2025-01-04 21:04 | NUR ---
PHYSICIAN NOTIFIED ABOUT BG BEING 357. NO NEW ORDERS RECEIVED.
--- NOTE | 2025-01-04 22:36 | NUR ---
GAVE VERBAL NO SELF HARM CONTRACT. HER IMPORTANCE WAS EMPHASIZED, VOICED HER APPRECIATION AND SMILED. VOICED HX OF THOSE THOUGHTS BUT NOT CURRENT. WILL CONT TO MONITOR. CALL LIGHT IN REACH.
[2025-01-05 03:10] VITALS: BP 114/60
--- NOTE | 2025-01-05 04:30 | NUR ---
FUR BUYER SHIFT SUMMARY PATIENT ADMITTED FOR DISCHARGE COMPLICATIONS AFTER LEFT FOOT SURGERY 12 DAYS AGO. ALERT AND ORIENTED X4. PATIENT HAS HISTORY OF TYPE 1 DIABETES NOT WELL CONTROLLED. INITIAL SHIFT BLOOD SUGAR WAS 357. PATIENT CALLED WITH BLOOD SUGAR OF 72 AT APPROXIMATELY 0100, PATIENT GIVEN SNACKS AND MILK TO RAISE AND STABILIZE BLOOD SUGAR. LATER WAS 121. PATIENT NOW ASYMPTOMATIC AND RESTING QUIETLY. HISTORY OF SI VERBALIZED NO SELF HARM CONTRACT WITH NURSE VOICED SHE HAD THOSE THOUGHTS IN THE PAST BUT NOT CURRENT. CALL LIGHT WITH IN REACH. BED RAILS UP X2. BED IN LOWEST POSITION FOR SAFETY. WILL CONTINUE TO MONITOR.
--- NOTE | 2025-01-05 04:35 | NUR ---
NURSE STUDENT PRECEPTOR NOTE I HAVE WORKED ALONG SIDE OF/WITH STUDENT AND HAVE READ AND AGREE WITH HER DOCUMENATION.
[2025-01-05 05:25] LABS: BASOPHILS ABSOLUTE AUTO 0.01 K/mm3 (0.00-0.23); BASOPHILS PERCENT AUTO 0 % (0-2); EOSINOPHILS PERCENT AUTO 0 % (0-6); Hematocrit 40.8 % (33.0-51.0); Hemoglobin 13.6 g/dL (11.5-16.0); IMMATURE GRAN ABSOLUTE AUTO 0.03 K/mm3 (0.00-0.10); IMMATURE GRAN PERCENT AUTO 1 % (0-1); LYMPHOCYTES ABSOLUTE AUTO 1.98 K/mm3 (0.84-5.20); LYMPHOCYTES PERCENT AUTO 35 % (21-46); MONOCYTES ABSOLUTE AUTO 0.39 K/mm3 (0.16-1.47); MONOCYTES PERCENT AUTO 7 % (4-13); Mean Corpuscular HGB 28.1 pg (26.0-34.0); Mean Corpuscular HGB Conc 33.3 g/dL (31.5-36.5); Mean Corpuscular Volume 84 fL (80-100); Mean Platelet Volume 10.3 fL (9.1-12.4); NEUTROPHILS ABSOLUTE AUTO 3.29 K/mm3 (1.96-9.15); NEUTROPHILS PERCENT AUTO 58 % (41-73); Platelet Count 202 K/mm3 (150-400); RDW Coefficient Variation 13.9 % (11.7-14.2); RDW Standard Deviation 42.2 fL (35.1-46.3); Red Blood Cell Count 4.84 M/mm3 (3.80-5.20)
[2025-01-05 05:43] LABS: Bun/Creatinine Ratio 16.8 (12.0-20.0); Calcium, Blood 9.1 mg/dL (8.5-10.1); Creatinine, Blood 0.54 mg/dL (0.40-1.00); Potassium, Blood 3.9 mmol/L (3.5-5.5)
[2025-01-05 07:17] VITALS: BP 124/90
--- NOTE | 2025-01-05 13:54 | NUR ---
DISCUSSED WITH PATIENT ORDER FOR TAP WATER EDEMA. PT STATES SHE WOULD PREFER TO HOLD OFF ON ENEMA IF POSSIBLE. PT AGREEABLE TO TRY SUPPOSITORY FIRST AND IF THAT DOESNT WORK, SHE IS AGREEABLE TO EDEMA.
[2025-01-05 15:32] VITALS: BP 121/80
--- NOTE | 2025-01-05 16:34 | NUR ---
SUMMARY PT HAD PT WORK WITH HER TODAY. BOOT TO LEFT FOOT IN PLACE. DRESSING C/D/I. MILK OF MAG AND SUPPOSITORY GIVEN PRN BUT NO BM. TAP WATER ENEMA COMPLETED PER ORDER. MOD BOWEL MOVEMENT, PT REPORTED RELIEF AFTERWARDS.
[2025-01-05 19:13] VITALS: BP 125/85
[2025-01-05] MEDS ORDERED: Lactulose 20 GM/30 ML UDC PO SCH (21:00)
--- NOTE | 2025-01-06 03:19 | NUR ---
SUPERVISORY HISTORIAN SHIFT SUMMARY PATIENT ADMITTED FOR DISCHARGE COMPLICATIONS AFTER SURGERY ON LEFT FOOT. ALERT AND ORIENTED X4. PATIENT HAS NEW BOWEL CARE REGIME AFTER STRUGGLING WITH CONSTIPATION. PATIENT MADE VERBAL CONTRACT WITH NURSE STEPHANIE FOR NO SELF HARM. PATIENT IS TYPE 1 DIABETIC WITH ACHS BLOOD SUGAR CHECKS. PATIENT ALSO HAS BLOOD SUGAR MONITOR PLACED IN HER ARM TO HELP WITH MONITORING FOR HYPOGLYCIMIA SHE IS A BRITTLE DIABETIC. BLOOD SUGAR HAS REMAINED WITHIN NORMAL LIMITS THIS SHIFT. PATIENT RESTING QUIETLY INTERMITTENLY WITH FEW INTERRUPTIONS. BED RAILS UP X2. CALL LIGHT WITHIN REACH. BED IN LOWEST POSITION FOR SAFETY. WILL CONTINUE TO MONITOR.
--- NOTE | 2025-01-06 03:51 | NUR ---
NURSE STUDENT PRECEPTOR NOTE I HAVE WORKED ALONG SIDE OF/WITH STUDENT AND HAVE READ AND AGREE WITH HER DOCUMENTATION.
[2025-01-06 04:03] VITALS: BP 110/73
[2025-01-06 05:12] LABS: BASOPHILS ABSOLUTE AUTO 0.01 K/mm3 (0.00-0.23); BASOPHILS PERCENT AUTO 0 % (0-2); EOSINOPHILS PERCENT AUTO 0 % (0-6); Hemoglobin 13.8 g/dL (11.5-16.0); IMMATURE GRAN ABSOLUTE AUTO 0.02 K/mm3 (0.00-0.10); IMMATURE GRAN PERCENT AUTO 0 % (0-1); LYMPHOCYTES PERCENT AUTO 38 % (21-46); MONOCYTES PERCENT AUTO 7 % (4-13); Mean Corpuscular HGB 28.5 pg (26.0-34.0); Mean Corpuscular HGB Conc 33.7 g/dL (31.5-36.5); Mean Corpuscular Volume 85 fL (80-100); Mean Platelet Volume 10.2 fL (9.1-12.4); NEUTROPHILS PERCENT AUTO 54 % (41-73); Platelet Count 190 K/mm3 (150-400); RDW Standard Deviation 42.9 fL (35.1-46.3); Red Blood Cell Count 4.84 M/mm3 (3.80-5.20); White Blood Cell Count 5.73 K/mm3 (4.00-11.30)
[2025-01-06 05:38] LABS: Creatinine, Blood 0.58 mg/dL (0.40-1.00); Potassium, Blood 3.5 mmol/L (3.5-5.5)
[2025-01-06 07:11] VITALS: BP 104/72
[2025-01-06 15:46] VITALS: BP 112/82
--- NOTE | 2025-01-06 17:40 | NUR ---
DISCHARGE HOME PT DISCHARGES HOME VIA W/C ACCOMPANIED BY LINUX ADMIN ENGINEER. MEDICATIONS FAXED TO [facility] PER PT DIRECTION.
--- NOTE | 2025-01-06 18:30 | NUR ---
SHIFT SUMMARY A&O X4. HAD KUB TODAY. NO BM. CLIENT DISCHARGED AT 1650 HOURS
[2025-01-09] MEDS ORDERED: METR500 PO (10:36)
== END 2025-01-06 18:05 | disposition home health service (06) ==
LOC: ER 16:13 → EOR 16:14 → ER 16:14 → ERHOLD 16:14 → EOR 16:15 → ER 16:15 → MEDS 01-02 08:54 → ERHOLD 01-02 08:54 → ER 01-02 08:54 → MEDS 01-02 17:43 → ERHOLD 01-02 17:43 → MEDS 01-02 17:43
PROVIDERS: Internal Medicine; Student in an Organized Health Care Education/Training Program; ADMIT Student in an Organized Health Care Education/Training Program
DX: M79.672 Pain in left foot (principal); E03.9 Hypothyroidism, unspecified; E10.42 Type 1 diabetes mellitus with diabetic polyneuropathy; E10.43 Type 1 diabetes mellitus with diabetic autonomic (poly)neuropathy; K31.84 Gastroparesis; J44.9 Chronic obstructive pulmonary disease, unspecified; I11.0 Hypertensive heart disease with heart failure; I50.9 Heart failure, unspecified; K21.9 Gastro-esophageal reflux disease without esophagitis; G47.30 Sleep apnea, unspecified; Z66 Do not resuscitate; Z74.1 Need for assistance with personal care; Z88.0 Allergy status to penicillin; Z88.1 Allergy status to other antibiotic agents; Z88.2 Allergy status to sulfonamides; Z88.8 Allergy status to other drugs, medicaments and biological substances; Z99.89 Dependence on other enabling machines and devices; Z98.1 Arthrodesis status
CPT/HCPCS: 36415; 74018; 74177; 80048; 80053; 82947; 83690; 85025; 93005; 93010; 94760; 96372; 96372-59; 96374-59; 96375; 96376; 97110; 97116; 97161; 97165; 97530; 97535; 99285-25; A9270; G0378; G0480; J1171; J1650; J1815; J1885; J2405; J2470; Q9967

== ENCOUNTER 2025-01-08 15:36 | Inpatient (IN) | payer OTHER ==
[~2025-01-08] VITALS: Ht 149.9 cm; Wt 64.8 kg
[2025-01-08 16:14] LABS: BASOPHILS ABSOLUTE AUTO 0.02 K/mm3 (0.00-0.23); BASOPHILS PERCENT AUTO 0 % (0-2); EOSINOPHILS PERCENT AUTO 0 % (0-6); Hematocrit 45.3 % (33.0-51.0); Hemoglobin 15.7 g/dL (11.5-16.0); IMMATURE GRAN ABSOLUTE AUTO 0.03 K/mm3 (0.00-0.10); IMMATURE GRAN PERCENT AUTO 0 % (0-1); LYMPHOCYTES ABSOLUTE AUTO 1.95 K/mm3 (0.84-5.20); LYMPHOCYTES PERCENT AUTO 23 % (21-46); MONOCYTES ABSOLUTE AUTO 0.33 K/mm3 (0.16-1.47); MONOCYTES PERCENT AUTO 4 % (4-13); Mean Corpuscular HGB 29.2 pg (26.0-34.0); Mean Corpuscular HGB Conc 34.7 g/dL (31.5-36.5); Mean Corpuscular Volume 84 fL (80-100); Mean Platelet Volume 10.3 fL (9.1-12.4); NEUTROPHILS ABSOLUTE AUTO 6.29 K/mm3 (1.96-9.15); NEUTROPHILS PERCENT AUTO 73 % (41-73); Platelet Count 220 K/mm3 (150-400); RDW Coefficient Variation 13.9 % (11.7-14.2); RDW Standard Deviation 42.4 fL (35.1-46.3); Red Blood Cell Count 5.37 M/mm3 (3.80-5.20); White Blood Cell Count 8.62 K/mm3 (4.00-11.30)
[2025-01-08] MEDS ORDERED: Ibuprofen 600 MG Tab PO ONE (16:30)
[2025-01-08 16:46] LABS: Albumin, Blood 3.8 g/dL (3.4-5.0); Albumin/Globulin Ratio 0.9 (0.8-1.8); Alk Phos 170 U/L (50-136); Anion Gap 8 mmol/L (3-11); Aspartate Aminotrans (AST/SGOT 22 U/L (12-37); Bilirubin, Total 0.5 mg/dL (0.1-1.0); Blood Urea Nitrogen 10 mg/dL (8-24); Bun/Creatinine Ratio 16.8 (12.0-20.0); CO2, Blood 27 mmol/L (21-32); Calcium, Blood 9.6 mg/dL (8.5-10.1); Chloride, Blood 102 mmol/L (98-108); Creatinine, Blood 0.59 mg/dL (0.40-1.00); Ethanol (Alcohol), Blood, Med <3 mg/dL; Globulin, Blood 4.1 g/dL (2.2-4.0); Glomerular Filtration Rate 107 (60-); Glucose, Blood 385 mg/dL (70-99); Salicylate <1.7 mg/dL (2.8-20.0); Sodium, Blood 133 mmol/L (136-145); Total Protein, Blood 7.9 g/dL (6.4-8.2)
[2025-01-08] MEDS ORDERED: VRAYLAR1.5 MG PO (16:49)
[2025-01-08] MEDS ORDERED: HYDROCODONE-AC1 EAC7 PO (16:50)
[2025-01-08 16:51] LABS: Alanine Aminotransfer (ALT/SGP 27 U/L (12-78)
[2025-01-08 17:01] LABS: Acetaminophen, Random <2.0 ug/mL (10.0-30.0)
[2025-01-08 17:12] LABS: Source, Urine Clean Catch
[2025-01-08 17:19] LABS: Appearance, Urine Clear (Clear); Bilirubin, Urine Neg (Neg); Blood, Urine Neg (Neg); Color, Urine Yellow (P-Yellow); Glucose Qualitative, Urine 4+ (Neg); Ketones, Urine 3+ (Neg); Leukocyte Esterase, Urine Neg (Neg); Nitrite, Urine Neg (Neg); Protein, Urine Neg (Neg); Urobilinogen, Urine NORM (Normal)
[2025-01-08] MEDS ORDERED: Ondansetron 4 MG TAB PO PRN (17:25)
[2025-01-08 17:30] LABS: U Amphetamine Screen Not Detected; U Barbituate Screen Not Detected; U Benzodiazapine Screen DETECTED; U Buprenorphine Screen Not Detected; U Cannabinoids Screen Not Detected; U Cocaine Screen Not Detected; U Methadone Screen Not Detected; U Methamphetamine Screen Not Detected; U Opiates Screen Not Detected; U Oxycodone Screen Not Detected; U Phencyclidine Screen Not Detected
[2025-01-08] MEDS ORDERED: HYDROcodone 10-APAP 325 TAB PO PRN (17:45)
[2025-01-08] MEDS ORDERED: TRAZ100 PO (18:50)
--- NOTE | 2025-01-08 19:14 | NUR ---
MS GOMEZ WAS ADMITTED TO MEDICAL UNIT FROM ER AT 1845HRS VIA WHEELCHAIR. SITTER AT BEDSIDE NOW. PT HAS LEFT SURGICAL BOOT ON, ABLE TO PUT SOME WEIGHT ON LEFT FOOT PER PT. SHE REPORTS THAT SHE HAS BEEN WALKING WITH A CANE AT HOME. PT C/O NAUSEA ALL DAY. PT PLEASANT AND COOPERATIVE WITH ADMISSION PROCESS. REPORT TO ONCOMING MARTIN CARSON.
[2025-01-08 19:24] VITALS: BP 153/100
[2025-01-08] MEDS ORDERED: Docusate Sodium 100 MG Cap PO PRN (20:45)
[2025-01-08] MEDS ORDERED: Pregabalin 75 MG Cap PO SCH (21:00)
[2025-01-08] MEDS ORDERED: Insulin Human Lispro 100 Units/ML 3ML Syringe SC SCH (21:00)
[2025-01-08] MEDS ORDERED: Insulin Glargine-Yfgn 100 Unit/mL 3 ML SYR SC SCH (21:00)
[2025-01-08] MEDS ORDERED: Temazepam 15 MG Cap PO SCH (21:00)
[2025-01-08] MEDS ORDERED: Insulin Human Lispro 100 Units/ML 3ML Syringe SC ONE (23:05)
[2025-01-09 01:21] LABS: BASOPHILS ABSOLUTE AUTO 0.03 K/mm3 (0.00-0.23); BASOPHILS PERCENT AUTO 1 % (0-2); EOSINOPHILS PERCENT AUTO 0 % (0-6); Hematocrit 38.8 % (33.0-51.0); Hemoglobin 13.3 g/dL (11.5-16.0); IMMATURE GRAN ABSOLUTE AUTO 0.02 K/mm3 (0.00-0.10); IMMATURE GRAN PERCENT AUTO 0 % (0-1); LYMPHOCYTES ABSOLUTE AUTO 2.85 K/mm3 (0.84-5.20); LYMPHOCYTES PERCENT AUTO 43 % (21-46); MONOCYTES ABSOLUTE AUTO 0.46 K/mm3 (0.16-1.47); MONOCYTES PERCENT AUTO 7 % (4-13); Mean Corpuscular HGB 29.1 pg (26.0-34.0); Mean Corpuscular HGB Conc 34.3 g/dL (31.5-36.5); Mean Corpuscular Volume 85 fL (80-100); Mean Platelet Volume 10.3 fL (9.1-12.4); NEUTROPHILS ABSOLUTE AUTO 3.26 K/mm3 (1.96-9.15); NEUTROPHILS PERCENT AUTO 49 % (41-73); Platelet Count 182 K/mm3 (150-400); Red Blood Cell Count 4.57 M/mm3 (3.80-5.20); White Blood Cell Count 6.62 K/mm3 (4.00-11.30)
[2025-01-09 01:37] LABS: Bun/Creatinine Ratio 22.6 (12.0-20.0); Calcium, Blood 8.9 mg/dL (8.5-10.1); Creatinine, Blood 0.62 mg/dL (0.40-1.00)
[2025-01-09 01:55] LABS: Free Thyroxine 0.82 ng/dL (0.70-1.60); Triiodothyronine, Free 1.11 pg/mL (2.18-3.98)
[2025-01-09 03:09] VITALS: BP 124/84
--- NOTE | 2025-01-09 05:51 | NUR ---
Shift Summary Pt here for SI and management of L broken ankle. She is on high SI precautions with a 1:1 sitter. She is AOx4, not in distress, calm, pleasant, cooperative with care and understanding of restrictions. She has a surgical boot on L foot which she manages, under the boot her foot is wrapped and the dressing is C/D/I. She slept well t/o most of the night. Medicated for pain x1,
[2025-01-09 07:53] VITALS: BP 103/66
[2025-01-09] MEDS ORDERED: Enoxaparin 40 MG/0.4 ML SYR SC SCH (09:00)
[2025-01-09] MEDS ORDERED: Venlafaxine HCl 75 MG CapCR PO SCH (09:00)
[2025-01-09] MEDS ORDERED: CARIPRAZINE 1.5 MG PO SCH ×2 (09:00→12:39)
[2025-01-09] MEDS ORDERED: LEVSOD150 PO (10:33)
[2025-01-09] MEDS ORDERED: ACET500 PO (10:34)
[2025-01-09] MEDS ORDERED: Insulin Human Lispro 100 Units/ML 3ML Syringe SC SCH (11:30)
[2025-01-09 15:32] VITALS: BP 127/73
--- NOTE | 2025-01-09 18:28 | NUR ---
SHIFT SUMMARY EARLY IN SHIFT. DIAPHORETIC. B/P LOW. INCREASE IN TEMP. WEAKNESS. UNABLE TO TRANSFER TO BEDSIDE CAMMODE WITH 2 PERSON ASSIST. NEW ANTIBIOTICS STARTED. CONTACT PRECAUTION IN PLACE. BY END OF SHIFT. CLIENT ABLE TO TRANSITION TO BEDSIDE CHAIR WITH 1 PERSON ASSIST.
--- NOTE | 2025-01-09 18:33 | NUR ---
SHIFT SUMMARY CLIENT MEDICATION COMPLIANT AND CALM. HAS SLEPT MOST OF SHIFT, BUT IS AROUSABLE. MEDICATED FOR PAIN X2. DRESSING OF BLE CHANGED.
--- NOTE | 2025-01-09 18:40 | NUR ---
SHIFT SUMMARY CLIENT RESTED IN BED MOST OF THE DAY. 1:[address] CONTINUES TO VOICE SI WITH PLAN. WALKING BOOT REMOVED AND DRESSING CHANGED.
[2025-01-09 20:30] VITALS: BP 152/103
--- NOTE | 2025-01-09 20:32 | NUR ---
SUICIDE RISK ASSESSMENT COMPLETED DURING THIS SHIFT. SUICIDE RISK REMAINS HIGH.
--- NOTE | 2025-01-10 03:31 | NUR ---
SHIFT SUMMARY PT DENIES SI AT HS. 1:[address] FOR SAFETY. ROOM CHECKED FOR ITEMS AT THE BEGINNING OF THIS SHIFT. PT RATES RIGHT FOOT PAIN 8.5/10.MEDICATED PER EMAR T/O THIS SHIFT. PT'S OWN GLUCOMETER SHOWING BG 56. RECHECKED AFTER PT HAD HONEY, SODA AND SUGARY SNACK. RECHECK 90. MEDICATED FOR NAUSEA AT HS. PT REPORTS HIGH ANXIETY AT HS. MEDICATED PER EMAR WITH GOOD EFFECTIVNESS. HS BG 191. INSULIN ADMINISTERED ORDERED. PT REPORTS VAGINAL ITCHING. BED AT THE LOWEST POSITION, SHORT CORD CALL LIGHT W/I REACH. PT IS A/O X4, ABLE TO MAKE HER NEEDS KNOWN AND COOPERATIVE WITH CARE.
[2025-01-10 05:37] VITALS: BP 139/93
[2025-01-10 08:09] VITALS: BP 145/104
[2025-01-10] MEDS ORDERED: Fluconazole 100 MG Tab PO ONE (11:45)
[2025-01-10] MEDS ORDERED: Polyethylene Glycol 3350 17 gm PO PRN (11:45)
[2025-01-10 17:20] VITALS: BP 172/110
--- NOTE | 2025-01-10 18:07 | NUR ---
PATIENT STATED "PILLS ARE MY GO TO METHOD, JUST GO TO SLEEP FOREVER." STATES SHE IS STILL AT A LOW BUT WANTS HELP AND THAT IS WHY SHE IS HERE.
--- NOTE | 2025-01-10 18:11 | NUR ---
SI PATIENT SCORED HIGH ON RISK ASSESSMENT, PROVIDER AWARE, SITTER IN ROOM, ROOM MITIGATED PER PROCESS.
--- NOTE | 2025-01-10 18:26 | NUR ---
SHIFT SUMMARY PATIENT A&OX4, STATES SHE "IS STILL AT A LOW, AND WANTS HELP." PATIENT STATES THAT SHE "WANTS TO SEE A PSYCHIATRIST AGAIN." PROVIDER NOTIFED, PSYCHIATRY FOLLOWING. SHE ALSO HADN'T HAD A BOWEL MOVEMENT SINCE ADMISSION, MEDICATED PER EMAR. HAD NEW FOUL ODOR, ITCHINESS, BURNING UPON URINATION AND DISCAHRGE WHEN URINATING, PROVIDER NOTIFIED. ABLE TO AMBULATE A STAND BY ASSIST WITH FRONT WHEEL WALKER.
[2025-01-10 19:44] VITALS: BP 154/97
--- NOTE | 2025-01-11 00:41 | NUR ---
Hypoglycemia and dysuria [place] beeping in patient's room and sitter informing this RN that patient's CGM (continuous glucose monitor) had just alerted that blood glucose was in low 60s. Entered room to find patient awake and looking at her phone with c/o of nausea. POC glucose checked then snacks and zofran given with good effect upon rechecking her sugars (see results). Ambulated to bathroom x1 assist + FWW and boot on LLE, tolerated well. Voided with complaints of dysuria similar to previous UTI's per patient. Settled back into bed, sitter remaining at bedside 1:1.
--- NOTE | 2025-01-11 02:59 | NUR ---
Dysuria Patient up to the bathroom. Complained of burning sensation when urinating similar to past UTIs per patient. Dr. Gonzalez notified and was able to obtain a T.O. for urinalysis w/ culture if indicated. Denies abdominal tenderness. Order placed.
--- NOTE | 2025-01-11 04:59 | NUR ---
Shift Summary AOx4. Pleasant/Cooperative. See previous note about dysuria, UA order pending collect. Remains suicidal per patient. Sitter at bedside throughout the night. Pt slept well. Pain well managed.
[2025-01-11 05:01] VITALS: BP 140/95
[2025-01-11 07:24] VITALS: BP 144/96
--- NOTE | 2025-01-11 09:52 | NUR ---
Pt states that she still feels that she is "in a tunnel" that she thinks about taking pills.
[2025-01-11] MEDS ORDERED: Insulin Glargine-Yfgn 100 Unit/mL 3 ML SYR SC SCH (10:00)
[2025-01-11 12:38] LABS: Source, Urine Clean Catch
[2025-01-11 12:43] LABS: Appearance, Urine Clear (Clear); Bilirubin, Urine Neg (Neg); Blood, Urine Neg (Neg); Glucose Qualitative, Urine 4+ (Neg); Ketones, Urine Neg (Neg); Leukocyte Esterase, Urine 1+ (Neg); Nitrite, Urine Neg (Neg); Protein, Urine Neg (Neg); Urobilinogen, Urine NORM (Normal)
[2025-01-11 12:54] LABS: Color, Urine Pale Yellow (P-Yellow)
[2025-01-11 12:55] LABS: Bacteria Few /hpf; Red Blood Cells, Urine 0-2 /hpf (0-2); Squamous Epithelial Cells Few /hpf (Few)
[2025-01-11 15:30] VITALS: BP 125/89
[2025-01-11 16:29] VITALS: BP 125/89
[2025-01-11 17:33] LABS: SARS-Cov-2 (COVID-19) PCR, MMC NEGATIVE (NEGATIVE)
--- NOTE | 2025-01-11 17:53 | NUR ---
pt informed about [facility] transfer to [facility]. is able to express fears. remains on 1:1 due to SI. denies pain
[2025-01-11 19:46] VITALS: BP 131/97
[2025-01-11] MEDS ORDERED: Divalproex Sodium 500 MG TABCR PO SCH (21:00)
--- NOTE | 2025-01-11 21:46 | NUR ---
Constipation Pt c/o no bm since admit. Review of chart indicates none was charted either. Discuss options for bowel care with patient and she opted for biscodyl suppository. Discuss with Hospitalist and received T.O. from Tong Haley NP for 10mg biscodyl DC once. Order placed.
[2025-01-11] MEDS ORDERED: Bisacodyl 10 MG Supp PR ONE (21:50)
--- NOTE | 2025-01-11 22:47 | NUR ---
Order for miconazole powder Patient found to have pink/red/moist abdominal/coccyx folds, what appears to be yeast infection. Discussed with Tera Fortune NP and got a T.O. for topical miconazole powder applied BID starting now.
[2025-01-11] MEDS ORDERED: Miconazole Nitrate 2% 85 GM PWD TOP SCH (22:50)
--- NOTE | 2025-01-12 01:18 | NUR ---
PTS PHONE WENT OFF THAT HER BLOOD SUGAR WAS LOW IN THE 60'S. BLOOD SUGAR WAS TAKEN AND IT WAS AT 64. I GAVE HER JUICE AND PEANUT BUTTER AND CRACKERS. WILL RECHECK IN 20 MINUTES.
--- NOTE | 2025-01-12 02:06 | NUR ---
RETOOK PTS BLOOD SUGAR AT 0140 AND IT WAS 78 AFTER PT TOOK IN HER CRACKERS PEANUT BUTTER AND APPLE JUICE THEN RECHECKED IT AGAIN AT 0204 AND IT WAS 108. PT STATED THAT SHES FEELING MUCH BETTER
--- NOTE | 2025-01-12 04:05 | NUR ---
Hypoglycemia x 2 tonight There were 2 instances that patient developed hypoglycemia tonight, first was around 0115 (POC sugar check was 64) and second around 0345 (POC sugar was not checked but patient's CGM showed 60), nursing staff was alerted both times via patient's CGM (see previous notes from MARTIN Barrios). Patient had already started snacking on bedside snacks so accurate/timely sugar check could not be taken. Follow-up glucose was taken after meat/cheese was added to her bedside snack which improved (see chart). Patient endorses nausea when hypoglycemic. No signs of diaphoresis or lethargy.
[2025-01-12 07:38] VITALS: BP 134/97
--- NOTE | 2025-01-12 07:55 | NUR ---
called report to mariana hansen patient is assigned to room 541.
[2025-01-12 08:06] VITALS: BP 125/89
[2025-01-12 08:08] VITALS: BP 125/89
--- NOTE | 2025-01-12 09:59 | NUR ---
PT DISCHARGED TO [facility] REPORT GIVEN AND ALL PATIENTS BELONGINGS WITH PT. PATIENT WENT WITH TRANSPORT IN
== END 2025-01-12 09:09 | DRG 885 ==
LOC: ER 15:36 → ERHOLD 17:20 → MEDS 17:20
PROVIDERS: Family Medicine; Internal Medicine; Student in an Organized Health Care Education/Training Program; ADMIT Internal Medicine
DX: F31.4 Bipolar disorder, current episode depressed, severe, without psychotic features (principal); R45.851 Suicidal ideations; I50.9 Heart failure, unspecified; R94.6 Abnormal results of thyroid function studies; E10.43 Type 1 diabetes mellitus with diabetic autonomic (poly)neuropathy; K21.9 Gastro-esophageal reflux disease without esophagitis; K31.84 Gastroparesis; Z96.643 Presence of artificial hip joint, bilateral; E03.9 Hypothyroidism, unspecified; J44.9 Chronic obstructive pulmonary disease, unspecified; F41.8 Other specified anxiety disorders; G47.33 Obstructive sleep apnea (adult) (pediatric); Z87.19 Personal history of other diseases of the digestive system; Z99.89 Dependence on other enabling machines and devices; Z98.890 Other specified postprocedural states; Z98.51 Tubal ligation status; Z90.89 Acquired absence of other organs; Z90.710 Acquired absence of both cervix and uterus; Z90.721 Acquired absence of ovaries, unilateral; Z78.0 Asymptomatic menopausal state; Z88.0 Allergy status to penicillin; Z88.2 Allergy status to sulfonamides; Z88.1 Allergy status to other antibiotic agents; Z88.5 Allergy status to narcotic agent; Z88.8 Allergy status to other drugs, medicaments and biological substances; Z79.899 Other long term (current) drug therapy; Z79.85 Long-term (current) use of injectable non-insulin antidiabetic drugs; Z79.51 Long term (current) use of inhaled steroids; Z79.890 Hormone replacement therapy; Z98.1 Arthrodesis status; Z79.4 Long term (current) use of insulin
CPT/HCPCS: 36415; 80048; 80053; 80320; 81001; 81003; 81025; 82947; 84439; 84443; 84481; 85025; 87086; 99285; A9270; G0480; J1650; J1815; U0002

== ENCOUNTER 2025-02-21 13:49 | Emergency (ER) | payer OTHER ==
[~2025-02-21] VITALS: Ht 149.9 cm; Wt 65.8 kg
[~2025-02-21 13:49] MED LIST changes: +ACET500 PO; +HYDROCODONE-AC1 EAC7 PO; +TRAZ100 PO
[2025-02-21 14:18] VITALS: BP 172/132
== END 2025-02-21 14:56 | disposition home or self-care (01) ==
LOC: ER 13:49
DX: L27.0 Generalized skin eruption due to drugs and medicaments taken internally (principal); T43.215A Adverse effect of selective serotonin and norepinephrine reuptake inhibitors, initial encounter; Z79.4 Long term (current) use of insulin; Z79.890 Hormone replacement therapy; Z79.899 Other long term (current) drug therapy
CPT/HCPCS: 99282

== ENCOUNTER 2025-02-25 19:18 | Emergency (ER) | payer OTHER ==
[~2025-02-25] VITALS: Ht 149.9 cm; Wt 65.8 kg
[2025-02-25 20:08] LABS: BASOPHILS ABSOLUTE AUTO 0.02 K/mm3 (0.00-0.23); BASOPHILS PERCENT AUTO 0 % (0-2); EOSINOPHILS ABSOLUTE AUTO 0.00 K/mm3 (0.00-0.68); EOSINOPHILS PERCENT AUTO 0 % (0-6); Hematocrit 38.2 % (33.0-51.0); Hemoglobin 13.1 g/dL (11.5-16.0); IMMATURE GRAN ABSOLUTE AUTO 0.03 K/mm3 (0.00-0.10); IMMATURE GRAN PERCENT AUTO 1 % (0-1); LYMPHOCYTES ABSOLUTE AUTO 1.93 K/mm3 (0.84-5.20); LYMPHOCYTES PERCENT AUTO 30 % (21-46); MONOCYTES ABSOLUTE AUTO 0.32 K/mm3 (0.16-1.47); MONOCYTES PERCENT AUTO 5 % (4-13); Mean Corpuscular HGB Conc 34.3 g/dL (31.5-36.5); Mean Corpuscular Volume 85 fL (80-100); NEUTROPHILS ABSOLUTE AUTO 4.25 K/mm3 (1.96-9.15); NEUTROPHILS PERCENT AUTO 65 % (41-73); NRBC ABSOLUTE 0.00 K/mm3 (0.00-0.02); NRBC Auto 0.0 /100 WBC (0.0-0.2); Platelet Count 152 K/mm3 (150-400); RDW Coefficient Variation 15.3 % (11.7-14.2); RDW Standard Deviation 46.7 fL (35.1-46.3)
[2025-02-25 20:41] LABS: Alanine Aminotransfer (ALT/SGP 23.0 U/L (12-78); Albumin, Blood 3.3 g/dL (3.4-5.0); Albumin/Globulin Ratio 0.9 (0.8-1.8); Anion Gap 7.0 mmol/L (3-11); Aspartate Aminotrans (AST/SGOT 10.0 U/L (12-37); Bilirubin, Total 0.5 mg/dL (0.1-1.0); Blood Urea Nitrogen 10.0 mg/dL (8-24); CO2, Blood 27.0 mmol/L (21-32); Calcium, Blood 8.7 mg/dL (8.5-10.1); Chloride, Blood 105.0 mmol/L (98-108); Creatinine, Blood 0.56 mg/dL (0.40-1.00); Globulin, Blood 3.6 g/dL (2.2-4.0); Glucose, Blood 347.0 mg/dL (70-99); Potassium, Blood 3.8 mmol/L (3.5-5.5); Sodium, Blood 135.0 mmol/L (136-145); Total Protein, Blood 6.9 g/dL (6.4-8.2)
[2025-02-25] MEDS ORDERED: Ondansetron HCl 2 MG / ML 2ML Vial IV ONE (21:15)
[2025-02-25] MEDS ORDERED: Ketorolac Tromethamine 15mg Vial IV ONE (22:40)
[2025-02-25 23:39] LABS: Source, Urine Clean Catch
[2025-02-25 23:43] LABS: Bilirubin, Urine Neg (Neg); Color, Urine Yellow (P-Yellow); Glucose Qualitative, Urine 4+ (Neg); Ketones, Urine Neg (Neg); Leukocyte Esterase, Urine 2+ (Neg); Protein, Urine 2+ (Neg); Specific Gravity, Urine 1.010 (1.003-1.022); Urobilinogen, Urine NORM (Normal)
[2025-02-25 23:56] LABS: White Blood Cells, Urine 50-100 /hpf (0-5)
[2025-02-26] MEDS ORDERED: ONDA4ODT MM (00:07)
[2025-02-26] MEDS ORDERED: RX Prepack 2 Tabs Ondansetron ODT 4MG UD ONE (00:10)
[2025-02-26 00:31] VITALS: BP 147/84
== END 2025-02-26 00:36 | disposition home or self-care (01) ==
LOC: ER 19:18
PROVIDERS: Physician Assistant
DX: N39.0 Urinary tract infection, site not specified (principal); K52.9 Noninfective gastroenteritis and colitis, unspecified; Z88.0 Allergy status to penicillin; Z88.2 Allergy status to sulfonamides; Z88.1 Allergy status to other antibiotic agents; Z88.5 Allergy status to narcotic agent; Z79.4 Long term (current) use of insulin; Z79.899 Other long term (current) drug therapy; E10.40 Type 1 diabetes mellitus with diabetic neuropathy, unspecified; J44.9 Chronic obstructive pulmonary disease, unspecified; I50.9 Heart failure, unspecified; Z90.711 Acquired absence of uterus with remaining cervical stump; Z90.89 Acquired absence of other organs; Z96.641 Presence of right artificial hip joint; Z87.891 Personal history of nicotine dependence
CPT/HCPCS: 74177; 80053; 81001; 85025; 87086; 96374; 96375; 99284-25; A9270; J1885; J2405; Q9967

== ENCOUNTER → 2025-02-25 | Outpatient (CLI) | payer OTHER | END | disposition home or self-care (01) | LOC: LAB 14:20 → LAB SHORT 14:20 | DX: N39.0 Urinary tract infection, site not specified (principal) | CPT/HCPCS: 87077; 87086; 87186 ==

== ENCOUNTER → 2025-03-04 | Outpatient (CLI) | payer OTHER ==
[2025-03-04 10:48] LABS: BASOPHILS ABSOLUTE AUTO 0.03 K/mm3 (0.00-0.23); BASOPHILS PERCENT AUTO 0 % (0-2); EOSINOPHILS ABSOLUTE AUTO 0.00 K/mm3 (0.00-0.68); EOSINOPHILS PERCENT AUTO 0 % (0-6); Hematocrit 38.2 % (33.0-51.0); Hemoglobin 12.9 g/dL (11.5-16.0); IMMATURE GRAN ABSOLUTE AUTO 0.12 K/mm3 (0.00-0.10); IMMATURE GRAN PERCENT AUTO 2 % (0-1); LYMPHOCYTES ABSOLUTE AUTO 0.89 K/mm3 (0.84-5.20); LYMPHOCYTES PERCENT AUTO 12 % (21-46); MONOCYTES ABSOLUTE AUTO 0.50 K/mm3 (0.16-1.47); MONOCYTES PERCENT AUTO 6 % (4-13); Mean Corpuscular HGB Conc 33.8 g/dL (31.5-36.5); Mean Corpuscular Volume 86 fL (80-100); NEUTROPHILS ABSOLUTE AUTO 6.23 K/mm3 (1.96-9.15); NEUTROPHILS PERCENT AUTO 80 % (41-73); NRBC ABSOLUTE 0.00 K/mm3 (0.00-0.02); NRBC Auto 0.0 /100 WBC (0.0-0.2); Platelet Count 147 K/mm3 (150-400); RDW Coefficient Variation 16.3 % (11.7-14.2); RDW Standard Deviation 50.6 fL (35.1-46.3)
[2025-03-04 11:05] LABS: Alanine Aminotransfer (ALT/SGP 78.0 U/L (12-78); Albumin, Blood 2.8 g/dL (3.4-5.0); Albumin/Globulin Ratio 0.8 (0.8-1.8); Anion Gap 12.0 mmol/L (3-11); Aspartate Aminotrans (AST/SGOT 27.0 U/L (12-37); Bilirubin, Total 0.8 mg/dL (0.1-1.0); Blood Urea Nitrogen 7.0 mg/dL (8-24); CO2, Blood 28.0 mmol/L (21-32); Calcium, Blood 9.2 mg/dL (8.5-10.1); Chloride, Blood 102.0 mmol/L (98-108); Creatinine, Blood 0.6 mg/dL (0.40-1.00); Globulin, Blood 3.7 g/dL (2.2-4.0); Glucose, Blood 205.0 mg/dL (70-99); Magnesium, Blood 1.7 mg/dL (1.6-2.4); Potassium, Blood 3.8 mmol/L (3.5-5.5); Sodium, Blood 138.0 mmol/L (136-145); Total Protein, Blood 6.5 g/dL (6.4-8.2)
[2025-03-04 12:16] LABS: C-REACTIVE PROTEIN, EXT RANGE 7.77 mg/dL (0.000-0.300)
[2025-03-05 16:35] LABS: Glutamyl Transpeptidase, GGT 487.0 U/L (5-55)
== END | disposition home or self-care (01) ==
LOC: LAB SHORT 10:44 → LAB 10:44
PROVIDERS: Physician Assistant
DX: M79.10 Myalgia, unspecified site (principal); M25.50 Pain in unspecified joint; R07.89 Other chest pain; R74.8 Abnormal levels of other serum enzymes
CPT/HCPCS: 80053; 82550; 82977; 83735; 84484; 85025; 85651; 86140

== ENCOUNTER → 2025-04-13 | Outpatient (CLI) | payer OTHER ==
[~2025-04-13] MED LIST changes: +ACYCLOVIR400 MG PO; +AZELASTINE HCL6 ML BOTHEYES; +CARVEDILOL6.25 MG PO; +DOCUZEN 8.6-501 EACH PO; +ESTRADIOL1 M1 PO; +EUTHYROX150 MC1 PO; +FLUTICASONE PRO16 GM; +MELO7.5 PO
== END ==
LOC: LAB SHORT 15:56 → LAB 15:56
DX: N39.0 Urinary tract infection, site not specified (principal)
CPT/HCPCS: 87077; 87086; 87186

== ENCOUNTER 2025-04-15 15:47 | Inpatient (IN) | payer OTHER ==
[~2025-04-15] VITALS: Ht 149.9 cm; Wt 75.4 kg
[~2025-04-15 15:47] MED LIST changes: -ACYCLOVIR400 MG PO; -AZELASTINE HCL6 ML BOTHEYES; -CARVEDILOL6.25 MG PO; -DOCUZEN 8.6-501 EACH PO; -ESTRADIOL1 M1 PO; -EUTHYROX150 MC1 PO; -FLUTICASONE PRO16 GM; -MELO7.5 PO
[2025-04-15] MEDS ORDERED: NS 1,000 ML IV SCH ×4 (16:00→21:35)
[2025-04-15] MEDS ORDERED: Ondansetron HCl 2 MG / ML 2ML Vial IV ONE (16:05)
[2025-04-15 16:11] LABS: Hematocrit 37.8 % (33.0-51.0); Hemoglobin 13.1 g/dL (11.5-16.0); Mean Corpuscular HGB Conc 34.7 g/dL (31.5-36.5); Mean Corpuscular Volume 84 fL (80-100); NRBC ABSOLUTE 0.00 K/mm3 (0.00-0.02); NRBC Auto 0.0 /100 WBC (0.0-0.2); Platelet Count 121 K/mm3 (150-400); RDW Coefficient Variation 14.6 % (11.7-14.2); RDW Standard Deviation 44.6 fL (35.1-46.3)
[2025-04-15 16:32] LABS: Alanine Aminotransfer (ALT/SGP 110 U/L (12-78); Albumin, Blood 3.1 g/dL (3.4-5.0); Albumin/Globulin Ratio 0.9 (0.8-1.8); Anion Gap 9 mmol/L (3-11); Aspartate Aminotrans (AST/SGOT 256 U/L (12-37); Bilirubin, Total 2.0 mg/dL (0.1-1.0); Blood Urea Nitrogen 19 mg/dL (8-24); CO2, Blood 25 mmol/L (21-32); Calcium, Blood 8.5 mg/dL (8.5-10.1); Chloride, Blood 104 mmol/L (98-108); Creatinine, Blood 0.84 mg/dL (0.40-1.00); Globulin, Blood 3.4 g/dL (2.2-4.0); Glucose, Blood 363 mg/dL (70-99); Potassium, Blood 4.1 mmol/L (3.5-5.5); Sodium, Blood 134 mmol/L (136-145); Total Protein, Blood 6.5 g/dL (6.4-8.2)
[2025-04-15] MEDS ORDERED: Ketorolac Tromethamine 15mg Vial IV ONE (16:45)
[2025-04-15 16:53] LABS: Source, Urine Clean Catch
[2025-04-15 16:55] LABS: Influenza A, PCR NEGATIVE (NEGATIVE); Influenza B, PCR NEGATIVE (NEGATIVE); Resp Syncytial Virus, PCR NEGATIVE (NEGATIVE); SARS-Cov-2 (COVID-19) PCR, MMC NEGATIVE (NEGATIVE)
[2025-04-15 17:27] LABS: BAND PERCENT MAN 10 % (0-8); BASOPHILS ABSOLUTE MAN 0.00 K/mm3 (0.00-0.23); BASOPHILS PERCENT MAN 0 % (0-2); EOSINOPHILS ABSOLUTE MAN 0.00 K/mm3 (0.00-0.68); EOSINOPHILS PERCENT MAN 0 % (0-6); LYMPHOCYTES ABSOLUTE MAN 0.25 K/mm3 (0.84-5.20); LYMPHOCYTES PERCENT MAN 3 % (21-46); MONOCYTES ABSOLUTE MAN 0.08 K/mm3 (0.16-1.47); MONOCYTES PERCENT MAN 1 % (4-13); NEUTROPHILS ABSOLUTE MAN 8.03 K/mm3 (1.96-9.15); SEG NEUTROPHILS PERCENT MAN 86 % (41-73)
[2025-04-15 18:13] LABS: Color, Urine Amber (P-Yellow); Glucose Qualitative, Urine 4+ (Neg); Ketones, Urine 1+ (Neg); Leukocyte Esterase, Urine 2+ (Neg); Protein, Urine 2+ (Neg); Specific Gravity, Urine 1.015 (1.003-1.022); Urobilinogen, Urine 2+ (Normal)
[2025-04-15 18:25] LABS: Bilirubin, Urine 2+ (Neg)
[2025-04-15] MEDS ORDERED: Prochlorperazine Edisylate 10 mg Vial IV ONE (18:25)
[2025-04-15 18:27] LABS: Red Blood Cells, Urine 0-2 /hpf (0-2); White Blood Cells, Urine TNTC /hpf (0-5)
[2025-04-15] MEDS ORDERED: CefTRIAXone Sodium 1,000 MG in NS 100 ML IV ONE (19:55)
[2025-04-15] MEDS ORDERED: MetroNIDAZOLE 500MG/NS 100 ml 100 ML IV ONE (20:25)
[2025-04-15] MEDS ORDERED: Vancomycin (Pharmacy Consult) IV SCH (21:25)
[2025-04-15] MEDS ORDERED: Albuterol 2.5 MG/3 ML VIAL INH PRN (21:35)
[2025-04-15] MEDS ORDERED: Ondansetron HCl 2 MG / ML 2ML Vial IV PRN (21:35)
[2025-04-15] MEDS ORDERED: Metoclopramide HCl 5MG / ML 2ML Vial IV PRN (21:35)
[2025-04-15 21:55] LABS: Ferritin, Serum 274 ng/mL (8-252); Lactate Dehydrogenase (Ld),Bld 256 U/L (100-240); Thyroid Stimulating Hormone 9.960 uIU/mL (0.360-4.800); Total Iron Binding Capacity 377 ug/dL (250-450)
[2025-04-15] MEDS ORDERED: Insulin Glargine-Yfgn 100 Unit/mL 3 ML SYR SC SCH (22:00)
[2025-04-15] MEDS ORDERED: Pantoprazole Sodium 40 MG Injection IV SCH (22:00)
[2025-04-15 22:10] LABS: U Benzodiazapine Screen DETECTED
[2025-04-15 22:11] LABS: U Amphetamine Screen Not Detected; U Barbituate Screen Not Detected; U Buprenorphine Screen Not Detected; U Cannabinoids Screen Not Detected; U Cocaine Screen Not Detected; U Methadone Screen Not Detected; U Methamphetamine Screen Not Detected; U Opiates Screen Not Detected; U Oxycodone Screen Not Detected; U Phencyclidine Screen Not Detected
[2025-04-15 22:41] VITALS: BP 115/69
[2025-04-15 23:09] LABS: Influenza A/2009-H1 Not Detected (NOT DETECT); SARS-Cov-2 (COVID-19), BioFire Not Detected (NOT DETECT)
[2025-04-15] MEDS ORDERED: EUTHYROX150 MC1 PO (23:24)
[2025-04-15] MEDS ORDERED: MONT10T PO (23:28)
[2025-04-15] MEDS ORDERED: FLUTICASONE PRO16 GM (23:30)
[2025-04-15] MEDS ORDERED: AZELASTINE HCL6 ML BOTHEYES (23:31)
[2025-04-15] MEDS ORDERED: DOCUZEN 8.6-501 EACH PO (23:32)
[2025-04-15] MEDS ORDERED: CARVEDILOL6.25 MG PO (23:33)
[2025-04-15] MEDS ORDERED: ACYCLOVIR400 MG PO (23:33)
[2025-04-15] MEDS ORDERED: ESTRADIOL1 M1 PO (23:33)
[2025-04-15] MEDS ORDERED: TRULICITY4.5 MG/0.5 SQ (23:34)
[2025-04-15] MEDS ORDERED: OMEP20ER PO (23:34)
[2025-04-15] MEDS ORDERED: MELO7.5 PO (23:34)
[2025-04-16] MEDS ORDERED: MetroNIDAZOLE 500MG/NS 100 ml 100 ML IV SCH (02:00)
[2025-04-16 03:35] VITALS: BP 102/67
[2025-04-16 03:56] LABS: Hematocrit 31.7 % (33.0-51.0); Hemoglobin 10.8 g/dL (11.5-16.0); Mean Corpuscular HGB Conc 34.1 g/dL (31.5-36.5); Mean Corpuscular Volume 85 fL (80-100); NRBC ABSOLUTE 0.00 K/mm3 (0.00-0.02); NRBC Auto 0.0 /100 WBC (0.0-0.2); Platelet Count 91 K/mm3 (150-400); RDW Coefficient Variation 14.8 % (11.7-14.2); RDW Standard Deviation 45.7 fL (35.1-46.3)
[2025-04-16 04:16] LABS: Alanine Aminotransfer (ALT/SGP 121.0 U/L (12-78); Albumin, Blood 2.5 g/dL (3.4-5.0); Albumin/Globulin Ratio 0.9 (0.8-1.8); Anion Gap 7.0 mmol/L (3-11); Aspartate Aminotrans (AST/SGOT 150.0 U/L (12-37); Bilirubin, Total 1.7 mg/dL (0.1-1.0); Blood Urea Nitrogen 15.0 mg/dL (8-24); CO2, Blood 25.0 mmol/L (21-32); Calcium, Blood 7.7 mg/dL (8.5-10.1); Chloride, Blood 110.0 mmol/L (98-108); Creatinine, Blood 0.63 mg/dL (0.40-1.00); Globulin, Blood 2.8 g/dL (2.2-4.0); Glucose, Blood 157.0 mg/dL (70-99); Potassium, Blood 3.4 mmol/L (3.5-5.5); Sodium, Blood 139.0 mmol/L (136-145); Total Protein, Blood 5.3 g/dL (6.4-8.2)
[2025-04-16 04:34] LABS: BAND PERCENT MAN 14 % (0-8); BASOPHILS ABSOLUTE MAN 0.00 K/mm3 (0.00-0.23); BASOPHILS PERCENT MAN 0 % (0-2); EOSINOPHILS ABSOLUTE MAN 0.00 K/mm3 (0.00-0.68); EOSINOPHILS PERCENT MAN 0 % (0-6); LYMPHOCYTES ABSOLUTE MAN 0.12 K/mm3 (0.84-5.20); LYMPHOCYTES PERCENT MAN 2 % (21-46); MONOCYTES ABSOLUTE MAN 0.19 K/mm3 (0.16-1.47); MONOCYTES PERCENT MAN 3 % (4-13); NEUTROPHILS ABSOLUTE MAN 6.10 K/mm3 (1.96-9.15); SEG NEUTROPHILS PERCENT MAN 81 % (41-73)
[2025-04-16] MEDS ORDERED: Levothyroxine Sodium 0.15 MG Tab PO SCH (06:00)
--- NOTE | 2025-04-16 06:14 | NUR ---
SHIFT SUMMARY: PT A&OX4 CALM AND COOPERATIVE. SOFT BPS. PT REPORTS FEELING DIZZY OCCASIONALLY. NSR 80S-90S. MAINTAINING >92% ON RA. 1 PERSON ASSIST WITH FWW TO BSC. INFUSING NS @150 ML/HR. PT ? BACK PAIN 04/04. MEDICATED PER EMAR AND APPLIED HEAT. PT ? OF NAUSEA. MEDICATED PER EMAR. ACHS. CONSISTENT CARB DIET. RECEIVING IV ABX. PROVIDER CONSULTED WITH GENERAL SURGURY. MED REC COMPLETED WITH PATIENT. BED IS LOW AND LOCKED. CALL LIGHT WITHIN REACH. CONTINUE WITH CURRENT PLAN OF CARE.
--- NOTE | 2025-04-16 07:18 | NUR ---
ASSUMPTION NOTE: THIS RN TO ASSUME CARE OF PATIENT. PATIENT IS AWAKE AND ABLE TO HAVE A CONVERSATION WITH THIS RN. IS ALERT AND ORIENTED X4 & ABLE TO ANSWER ALL QUESTIONS APPRORPAITELY. VITAL SIGNS STABLE. BLOOD SUGAR BELOW PARAMETER PER EMAR FOR MEDICATION. PATIENT HAS CALL LIGHT WITHIN REACH, BED IN LOWEST POSITON STATING NOTHING ELSE IS NEEDED AT THIS TIME.
[2025-04-16 07:19] VITALS: BP 103/72
[2025-04-16] MEDS ORDERED: Insulin Human Lispro 100 Units/ML 3ML Syringe SC SCH (07:30)
[2025-04-16] MEDS ORDERED: Lactobacil 2-S.Thermo-Bifido 1 1 Cap PO SCH (09:00)
--- NOTE | 2025-04-16 11:27 | NUR ---
SURGEON ROUNDED: SURGEON ROUNDED AND SPOKE WITH PATIENT REGARDING PLAN. PLAN WILL BE TO NOT DO ANY SURGERY AT THIS TIME HE IS UNDER THE IMPRESSION THE PERF HAS HEALED. PLAN WILL BE TO CONTINUE ANTIBIOTICS AND TO MANAGE PAIN PRIOR TO DISCHARGING.
[2025-04-16 11:28] VITALS: BP 126/88
--- NOTE | 2025-04-16 11:57 | NUR ---
MD ROUNDED: MD ROUNDED AND SPOKE WITH PATIENT NOW BECOMING SURGICAL WITHOUT TELE STATUS. MD TO PLACE ORDERS TO CHANGE PAIN MEDCIATIONS AND ADD SOME MORE HOME MEDICATIONS THAT PATIENT ASKED FOR.
[2025-04-16] MEDS ORDERED: Docusate Sodium/Senna 1 Tab PO PRN (14:10)
[2025-04-16 15:03] VITALS: BP 135/88
--- NOTE | 2025-04-16 17:11 | NUR ---
SHIFT SUMMARY: PATIENT IS ALERT AND ORIENTED X4 & COOPERATIVE WITH HER CARE, IS ABLE TO MAKE NEEDS KNWON & USES CALL LIGHT APPRORPRIATELY. PATIENT SATTING >92% ON ROOM AIR. IS NOW SURGICAL NO TELE STATUS. PATIENT WAS SEEN BY SURGERY TODAY AND THEY WILL NOT BE DOING SURGERY AT THIS TIME BUT PLAN WILL BE TO CONTINUE ANTIBIOTICS AND ALLOW THE PERF TO HEAL ON IT'S OWN. PATIENT WAS GIVEN INSULIN PER SLIDING SCALES THROUGHOUT SHIFT FOR ELVATED BLOOD SUGARS. HOME MEDS WERE RESTARTED AND PAIN MEDICATIONS WERE SWITCHED, SEE EMAR FOR MORE INFORMATION. PATIENT AWARE SHE CAN MOVE AND AWARE OF THE PLAN TO CONTINUE TO GET ANTIBIOTICS AND LOOKING AT [facility] WITHIN A FEW DAYS. PATIENT HAS CALL LIGHT WITHN REACH, GETTING READY TO EAT DINNER AND STATING NOTHIGNE ELSE IS NEEDED AT THIS TIME.
[2025-04-16 20:14] VITALS: BP 137/83
[2025-04-16] MEDS ORDERED: CefTRIAXone Sodium 1,000 MG in NS 100 ML IV SCH (21:00)
[2025-04-17] VITALS (7 sets, daily range): BP systolic 130–174; BP diastolic 88–149
[2025-04-17 04:26] LABS: BASOPHILS ABSOLUTE AUTO 0.02 K/mm3 (0.00-0.23); BASOPHILS PERCENT AUTO 0 % (0-2); EOSINOPHILS ABSOLUTE AUTO 0.00 K/mm3 (0.00-0.68); EOSINOPHILS PERCENT AUTO 0 % (0-6); Hematocrit 36.2 % (33.0-51.0); Hemoglobin 11.9 g/dL (11.5-16.0); IMMATURE GRAN ABSOLUTE AUTO 0.01 K/mm3 (0.00-0.10); IMMATURE GRAN PERCENT AUTO 0 % (0-1); LYMPHOCYTES ABSOLUTE AUTO 1.18 K/mm3 (0.84-5.20); LYMPHOCYTES PERCENT AUTO 23 % (21-46); MONOCYTES ABSOLUTE AUTO 0.19 K/mm3 (0.16-1.47); MONOCYTES PERCENT AUTO 4 % (4-13); Mean Corpuscular HGB Conc 32.9 g/dL (31.5-36.5); Mean Corpuscular Volume 87 fL (80-100); NEUTROPHILS ABSOLUTE AUTO 3.69 K/mm3 (1.96-9.15); NEUTROPHILS PERCENT AUTO 73 % (41-73); NRBC ABSOLUTE 0.00 K/mm3 (0.00-0.02); NRBC Auto 0.0 /100 WBC (0.0-0.2); Platelet Count 127 K/mm3 (150-400); RDW Coefficient Variation 14.8 % (11.7-14.2); RDW Standard Deviation 47.7 fL (35.1-46.3)
[2025-04-17 04:46] LABS: Alanine Aminotransfer (ALT/SGP 80.0 U/L (12-78); Albumin, Blood 2.6 g/dL (3.4-5.0); Albumin/Globulin Ratio 0.8 (0.8-1.8); Anion Gap 7.0 mmol/L (3-11); Aspartate Aminotrans (AST/SGOT 48.0 U/L (12-37); Bilirubin, Total 0.5 mg/dL (0.1-1.0); Blood Urea Nitrogen 9.0 mg/dL (8-24); CO2, Blood 25.0 mmol/L (21-32); Calcium, Blood 8.5 mg/dL (8.5-10.1); Chloride, Blood 113.0 mmol/L (98-108); Creatinine, Blood 0.63 mg/dL (0.40-1.00); Globulin, Blood 3.4 g/dL (2.2-4.0); Glucose, Blood 95.0 mg/dL (70-99); Potassium, Blood 3.7 mmol/L (3.5-5.5); Sodium, Blood 141.0 mmol/L (136-145); Total Protein, Blood 6.0 g/dL (6.4-8.2)
--- NOTE | 2025-04-17 05:46 | NUR ---
SHIFT SUMMARY: PT A&OX4 CALM AND COOPERATIVE. MAINTAINING >92% ON RA. SBA TO BATHROOM. PT ? OF NAUSEA. MEDICATED PER EMAR. PT REPORTS CONCERN OF CONSTIPATION. GIVEN SENNA PRN. NO BM DURING SHIFT. ACHS. RECEIVED 25 UNITS OF INSULIN GLARGINE AND PT RECEIVED LOW BLOOD SUGAR ALERT FROM PERSONAL DEXCOM. PT WAS DIAPHORETIC UPON CHECKING. CHEM BG RECHECKED AND BG WAS 74. PT GIVEN APPLE JUICE. MORNING LAB GLUCOSE IS 95. PT REPORTS FREQUENT ALERTS OF LOW BLOOD SUGAR AT HOME AFTER MEDICATING. CONSISTENT CARB DIET. RECEIVING IV ABX. BED IS LOW AND LOCKED. CALL LIGHT WITHIN REACH. CONTINUE WITH CURRENT PLAN OF CARE.
--- NOTE | 2025-04-17 07:43 | NUR ---
ASSUMPTION NOTE: THIS RN TO ASSUME CARE OF PATIENT. PATIENT AWAKE IN BED. VITAL SIGNS TAKEN AND PATIENT STABLE. PATIENT REPORTED 8/10 PAIN AND IS ASKING FOR PAIN MEDICATIONS. PATIENT REPORTED NOT HAVING A BOWEL MOVEMENT YET AND IS CONCERNED SHE'S STARTING TO TAKE OXY. THIS RN TO ASK FOR LAXATIVES. BED IN LOWEST LOCKED POSITION & CALL LIGHT WITHIN REACH.
[2025-04-17] MEDS ORDERED: Fluticasone 0.05% Nasal Spray SCH (09:00)
[2025-04-17] MEDS ORDERED: Enoxaparin 40 MG/0.4 ML SYR SC SCH (09:00)
[2025-04-17 10:58] LABS: Vancomycin, Trough 10.2 ug/mL (5.0-10.0)
--- NOTE | 2025-04-17 11:53 | NUR ---
md rounded: md rounded and plan continues to be course of action per surgeon with antibiotics and to control pain. md gave verbal order to add laxative as patient reported she has not had a bowel movement and was worried due to taking pain meds. this rn notified md regarding patient blood sugar last night dropping pretty low with long acting, md to take a look at order and will change as needed.
[2025-04-17] MEDS ORDERED: Polyethylene Glycol 3350 17 gm PO SCH (11:55)
--- NOTE | 2025-04-17 15:41 | NUR ---
TRANSFER NOTE: THIS RN GAVE REPORT TO YO PRIOR TO PATIENT LEAVING THIS UNIT. PATIENT IS ALERT AND ORIENTED X4 & COOPERATIVE WITH HER CARE, IS ABLE TO MAKE NEEDS KNOWN & USES CALL LIGHT APPRORPAITELY. SATTING >92% ON ROOM AIR. PATIENT NOTIFIED FAMILY OF MOVE AND NEW ROOM NUMBER. PATIENT TOOK ALL PERSONAL BELONGINGS AND MEDICATIONS THAT WERE IN THE DRAWER WENT ALONG WITH CHART.
--- NOTE | 2025-04-17 17:34 | NUR ---
PT WAS A PCU TRANSFER. VS ARE WNL. PT HAS NO C/O PAIN, SOB OR CHEST PAIN. PT RESTING COMFORTABLY. PT HAS NO QUESTIONS OR CONCERNS AT THIS TIME.
[2025-04-17] MEDS ORDERED: Insulin Glargine-Yfgn 100 Unit/mL 3 ML SYR SC SCH (21:00)
[2025-04-17] MEDS ORDERED: Ketotifen Fumarate Opth Soln RIGHTEYE SCH (22:30)
[2025-04-17] MEDS ORDERED: NS 250 ML IV PRN (23:10)
[2025-04-18 04:54] VITALS: BP 150/98
[2025-04-18 05:37] LABS: BASOPHILS ABSOLUTE AUTO 0.01 K/mm3 (0.00-0.23); BASOPHILS PERCENT AUTO 0 % (0-2); EOSINOPHILS ABSOLUTE AUTO 0.00 K/mm3 (0.00-0.68); EOSINOPHILS PERCENT AUTO 0 % (0-6); Hematocrit 35.7 % (33.0-51.0); Hemoglobin 11.8 g/dL (11.5-16.0); IMMATURE GRAN ABSOLUTE AUTO 0.02 K/mm3 (0.00-0.10); IMMATURE GRAN PERCENT AUTO 1 % (0-1); LYMPHOCYTES ABSOLUTE AUTO 1.69 K/mm3 (0.84-5.20); LYMPHOCYTES PERCENT AUTO 40 % (21-46); MONOCYTES ABSOLUTE AUTO 0.30 K/mm3 (0.16-1.47); MONOCYTES PERCENT AUTO 7 % (4-13); Mean Corpuscular HGB Conc 33.1 g/dL (31.5-36.5); Mean Corpuscular Volume 85 fL (80-100); NEUTROPHILS ABSOLUTE AUTO 2.23 K/mm3 (1.96-9.15); NEUTROPHILS PERCENT AUTO 52 % (41-73); NRBC ABSOLUTE 0.00 K/mm3 (0.00-0.02); NRBC Auto 0.0 /100 WBC (0.0-0.2); Platelet Count 155 K/mm3 (150-400); RDW Coefficient Variation 14.7 % (11.7-14.2); RDW Standard Deviation 45.1 fL (35.1-46.3)
[2025-04-18 06:01] LABS: Alanine Aminotransfer (ALT/SGP 55.0 U/L (12-78); Albumin, Blood 2.6 g/dL (3.4-5.0); Albumin/Globulin Ratio 0.8 (0.8-1.8); Anion Gap 7.0 mmol/L (3-11); Aspartate Aminotrans (AST/SGOT 17.0 U/L (12-37); Bilirubin, Total 0.4 mg/dL (0.1-1.0); Blood Urea Nitrogen 6.0 mg/dL (8-24); CO2, Blood 29.0 mmol/L (21-32); Calcium, Blood 8.7 mg/dL (8.5-10.1); Chloride, Blood 108.0 mmol/L (98-108); Creatinine, Blood 0.55 mg/dL (0.40-1.00); Globulin, Blood 3.2 g/dL (2.2-4.0); Glucose, Blood 123.0 mg/dL (70-99); Potassium, Blood 3.8 mmol/L (3.5-5.5); Sodium, Blood 140.0 mmol/L (136-145); Total Protein, Blood 5.8 g/dL (6.4-8.2)
--- NOTE | 2025-04-18 06:41 | NUR ---
SUMMERY NOC SHIFT PT ADMITTED FOR POSSIBLE UTI. PT IS ALERT AND ORIENTED TIMES 4. PT IS INDEPENDENT AND ABLE TO AMBULATE TO BATHROOM ON OWN. PT IS ON ROOM AIR. PT TAKES MEDICATION WHOLE WITH WATER. PT IS ACHS.CALL LIGHT APPROPRIATE. BED IS IN LOW POSITION, RAILS TIMES TWO, AND CALL LIGHT IS WITHIN REACH.
[2025-04-18 07:45] VITALS: BP 157/93
[2025-04-18 09:19] LABS: HEPATITIS B SURFACE ANTIBODY <3.10 IU/L; HEPATITIS BE ANTIBODY Negative (Negative); HEPATITIS BE ANTIGEN Negative (Negative)
[2025-04-18 11:23] LABS: HIV 1,2 COMBO ANTIGEN/ANTIBODY Negative (Negative)
[2025-04-18] MEDS ORDERED: Magnesium Hydroxide Conc 10 ML UDC PO PRN (12:20)
[2025-04-18 12:54] LABS: HEPATITIS A ANTIBODY, IGM Negative (Negative); HEPATITIS C AB CIA INTERP Negative (Negative); HEPATITIS C ANTIBODY CIA INDEX 0.04 IV
[2025-04-18 14:23] LABS: FACTIN SMOOTH MUSCLE,IGG ELISA 3 Units (0-19)
[2025-04-18 14:35] LABS: DEAMIDATED GLIADIN PEPTIDE,IGA <0.72 FLU (0.00-4.99); TISSUE TRANSGLUTAMINAS TTG,IGA <1.02 FLU (0.00-4.99)
[2025-04-18 15:15] VITALS: BP 174/104
[2025-04-18 15:16] LABS: ANTI-NUCLEAR AB ANA,IGG ELISA None Detected (None Detected)
[2025-04-18 16:33] VITALS: BP 155/98
--- NOTE | 2025-04-18 18:38 | NUR ---
PT PLEASANT COOP TODAY. DID TAKE SHOWER TODAY. MEDICATED FOR PAIN THIS AM. S/O IN TO SEE TODAY. ABX PER EMAR. NO NEW CONCERNS NOTED. BED IN LOW POSTIION, CALL LITE IN REACH, CALLS APPROP
[2025-04-18 21:13] VITALS: BP 167/97
[2025-04-18 22:35] LABS: Vancomycin, Trough 15.6 ug/mL (5.0-10.0)
[2025-04-19] VITALS (7 sets, daily range): BP systolic 151–174; BP diastolic 93–105
--- NOTE | 2025-04-19 06:59 | NUR ---
PATIENT ALERTX4. PAIN AND NAUSEA MANAGED WITH PRN. NO BM LAST NIGHT PRNS GIVEN BOWEL SOUNDS IN ALL 4 QUADS. HYPO IN LOW QUADS PAIN ON MOSTLY LOWER LEFT SIDE.
--- NOTE | 2025-04-19 19:33 | NUR ---
SHIFT SUMMARY PT IS A/OX4. INDEPENDENT IN THE ROOM. NO ACUTE CHANGES THROUGHOUT THIS SHIFT. NO BM THROUGHOUT THIS SHIFT, BOWEL MEDS GIVEN PER MAR. PT REPORTS MINIMAL ABD DISCOMFORT/PAIN WITH OCCASIONAL NAUSEA, ZOFRAN GIVEN PER MAR. PT IS PLEASANT AND COOPERATIVE WITH CARE AND CALLS APPROPRIATELY USING THE CALL LIGHT.
--- NOTE | 2025-04-20 05:14 | NUR ---
SHIFT SUMMARY PT ALERT ORIENTED ABLE TO VERBALIZE NEEDS CALLS APPROPRIATELY. GETS UP IN ROOM AD DEEPAK. STILL HAVING CONSTIPATION WITH NO BM X 5 DAYS. MIRALAX AND SENNA WAS GIVEN. FS DONE AC AND HS WAS 312. REMAINS ON FLAGYL, VANCO AND ROCEPHIN. BP WAS SLIGHTLY INCREASED AT 172/93. NO C/O ABD PAIN. DID C/O GENERAL PAIN TYLENOL WAS GIVEN ORDERED. SHES DUE FOR A REPEAT CT SCAN THIS AM. RESTING IN BED AT THIS TIME WITH CALL LIGHT IN REACH
[2025-04-20 06:01] VITALS: BP 157/103
[2025-04-20 06:18] LABS: BASOPHILS ABSOLUTE AUTO 0.03 K/mm3 (0.00-0.23); BASOPHILS PERCENT AUTO 1 % (0-2); EOSINOPHILS ABSOLUTE AUTO 0.00 K/mm3 (0.00-0.68); EOSINOPHILS PERCENT AUTO 0 % (0-6); Hematocrit 39.0 % (33.0-51.0); Hemoglobin 13.2 g/dL (11.5-16.0); IMMATURE GRAN ABSOLUTE AUTO 0.10 K/mm3 (0.00-0.10); IMMATURE GRAN PERCENT AUTO 2 % (0-1); LYMPHOCYTES ABSOLUTE AUTO 1.76 K/mm3 (0.84-5.20); LYMPHOCYTES PERCENT AUTO 39 % (21-46); MONOCYTES ABSOLUTE AUTO 0.31 K/mm3 (0.16-1.47); MONOCYTES PERCENT AUTO 7 % (4-13); Mean Corpuscular HGB Conc 33.8 g/dL (31.5-36.5); Mean Corpuscular Volume 84 fL (80-100); NEUTROPHILS ABSOLUTE AUTO 2.30 K/mm3 (1.96-9.15); NEUTROPHILS PERCENT AUTO 51 % (41-73); NRBC ABSOLUTE 0.00 K/mm3 (0.00-0.02); NRBC Auto 0.0 /100 WBC (0.0-0.2); Platelet Count 169 K/mm3 (150-400); RDW Coefficient Variation 13.7 % (11.7-14.2); RDW Standard Deviation 41.8 fL (35.1-46.3)
[2025-04-20 06:45] LABS: Anion Gap 8.0 mmol/L (3-11); Blood Urea Nitrogen 10.0 mg/dL (8-24); CO2, Blood 29.0 mmol/L (21-32); Calcium, Blood 8.5 mg/dL (8.5-10.1); Chloride, Blood 102.0 mmol/L (98-108); Creatinine, Blood 0.57 mg/dL (0.40-1.00); Glucose, Blood 293.0 mg/dL (70-99); Potassium, Blood 4.2 mmol/L (3.5-5.5); Sodium, Blood 135.0 mmol/L (136-145)
[2025-04-20 08:06] VITALS: BP 161/95
[2025-04-20 12:23] LABS: Glucose, Blood 488 mg/dL (70-99)
[2025-04-20] MEDS ORDERED: Insulin Human Lispro 100 Units/ML 3ML Syringe SC ONE (13:50)
[2025-04-20 19:35] VITALS: BP 151/91
--- NOTE | 2025-04-20 22:52 | NUR ---
CALL TO INSULATOR TECHNICIAN PROVIDER TO NOTIFY OF PATIENT'S GLUCOSE READING OF 407. PATIENT WAS COVERED WITH 5 UNITS OF HUMALOG AND 20 UNITS OF GLARGINE. PER PROVIDER NO FURTHER INTERVENTION NEEDED AT THIS TIME.
[2025-04-21 04:37] VITALS: BP 144/84
--- NOTE | 2025-04-21 05:26 | NUR ---
SHIFT SUMMARY: PATIENT IS A&Ox4. SHE IS PLEASANT AND COOPERATIVE WITH CARE. CALLS APPROPRIATELY AND IS ABLE TO ADVOCATE NEEDS EFFECTIVELY. PATIENT MOVES AROUND AD DEEPAK. SHE IS CONTINENT OF BOWEL AND BLADDER; LBM 04/20/2025 DAY SHIFT. PATIENT REPORTS 9/10 GENERALIZED AND ABDOMINAL PAIN AND IS ADMINISTERED TYLENOL PRN ONCE. SHE REPORTS NAUSEA AND PRN ZOFRAN IS ADMINISTED ONCE. GLUCOSE LEVEL WAS 407 AT BEDTIME AND 5 UNITS OF HUMALOG AND 20 UNITS OF GLARGINE ARE ADMINISTERED. PROVIDER DISHWASHER PREPARER IS NOTIFIED BY PHONE AND NO ORDER CHANGES.
[2025-04-21 06:15] LABS: BASOPHILS ABSOLUTE AUTO 0.03 K/mm3 (0.00-0.23); BASOPHILS PERCENT AUTO 1 % (0-2); EOSINOPHILS ABSOLUTE AUTO 0.00 K/mm3 (0.00-0.68); EOSINOPHILS PERCENT AUTO 0 % (0-6); Hematocrit 39.6 % (33.0-51.0); Hemoglobin 13.4 g/dL (11.5-16.0); IMMATURE GRAN ABSOLUTE AUTO 0.16 K/mm3 (0.00-0.10); IMMATURE GRAN PERCENT AUTO 3 % (0-1); LYMPHOCYTES ABSOLUTE AUTO 1.90 K/mm3 (0.84-5.20); LYMPHOCYTES PERCENT AUTO 40 % (21-46); MONOCYTES ABSOLUTE AUTO 0.38 K/mm3 (0.16-1.47); MONOCYTES PERCENT AUTO 8 % (4-13); Mean Corpuscular HGB Conc 33.8 g/dL (31.5-36.5); Mean Corpuscular Volume 82 fL (80-100); NEUTROPHILS ABSOLUTE AUTO 2.29 K/mm3 (1.96-9.15); NEUTROPHILS PERCENT AUTO 48 % (41-73); NRBC ABSOLUTE 0.00 K/mm3 (0.00-0.02); NRBC Auto 0.0 /100 WBC (0.0-0.2); Platelet Count 187 K/mm3 (150-400); RDW Coefficient Variation 13.5 % (11.7-14.2); RDW Standard Deviation 40.8 fL (35.1-46.3)
[2025-04-21 06:32] LABS: Anion Gap 8.0 mmol/L (3-11); Blood Urea Nitrogen 13.0 mg/dL (8-24); CO2, Blood 30.0 mmol/L (21-32); Calcium, Blood 8.7 mg/dL (8.5-10.1); Chloride, Blood 99.0 mmol/L (98-108); Creatinine, Blood 0.67 mg/dL (0.40-1.00); Glucose, Blood 295.0 mg/dL (70-99); Potassium, Blood 4.1 mmol/L (3.5-5.5); Sodium, Blood 133.0 mmol/L (136-145)
[2025-04-21 08:03] VITALS: BP 142/126
[2025-04-21] MEDS ORDERED: Insulin NPH 100 Unit / ML 10ML Vial SC ONE (11:50)
[2025-04-21 16:00] VITALS: BP 153/101
--- NOTE | 2025-04-21 19:25 | NUR ---
SHIFT SUMMARY PATIENT ALERT AND INTERACTIVE. PATIENT ABLE TO MAKE NEEDS KNOWN. PROVIDED EDUCATION RELATED TO BOWEL PROGRAM, FOODS TO AVOID AND OTHERS TO INCLUDE. EDUCATED ON FLUID INTAKE AND EXERCISE. PATIENT ENCOURAGED TO AMBULATE BUT ONLY TOOK ONE WALK TODAY. NO FURTHER STOOLS TODAY.
[2025-04-21 20:07] VITALS: BP 160/94
[2025-04-21 22:29] LABS: Vancomycin, Trough 20.0 ug/mL (5.0-10.0)
[2025-04-22 05:43] VITALS: BP 143/92
--- NOTE | 2025-04-22 05:55 | NUR ---
SHIFT SUMMARY PT ALERT ORIENTED X 4 ABLE TO VERBALIZE NEEDS GETS UP IN ROOM AD DEEPAK. NO EMESIS THIS SHIFT DID STATE THAT SHES STARTING TO FEEL BETTER AND DID HAVE A MD BM THIS SHIFT. REMAINS ON VANCO, FLAGYL AND ROCEPHIN ORDERED FOR UTI C/O PAIN MEDICATED WITH TYLENOL WITH GOOD PAIN RELIEF. SHE WAS ABLE TO SLEEP MOST OF THE SHIFT. RESTING IN BED AT THIS TIME WITH CALL LIGHT IN REACH FS DONE AC AND HS WAS 272.
[2025-04-22 06:49] LABS: BASOPHILS ABSOLUTE AUTO 0.03 K/mm3 (0.00-0.23); BASOPHILS PERCENT AUTO 1 % (0-2); EOSINOPHILS ABSOLUTE AUTO 0.00 K/mm3 (0.00-0.68); EOSINOPHILS PERCENT AUTO 0 % (0-6); Hematocrit 40.0 % (33.0-51.0); Hemoglobin 13.6 g/dL (11.5-16.0); IMMATURE GRAN ABSOLUTE AUTO 0.14 K/mm3 (0.00-0.10); IMMATURE GRAN PERCENT AUTO 3 % (0-1); LYMPHOCYTES ABSOLUTE AUTO 2.32 K/mm3 (0.84-5.20); LYMPHOCYTES PERCENT AUTO 42 % (21-46); MONOCYTES ABSOLUTE AUTO 0.50 K/mm3 (0.16-1.47); MONOCYTES PERCENT AUTO 9 % (4-13); Mean Corpuscular HGB Conc 34.0 g/dL (31.5-36.5); Mean Corpuscular Volume 83 fL (80-100); NEUTROPHILS ABSOLUTE AUTO 2.52 K/mm3 (1.96-9.15); NEUTROPHILS PERCENT AUTO 46 % (41-73); NRBC ABSOLUTE 0.00 K/mm3 (0.00-0.02); NRBC Auto 0.0 /100 WBC (0.0-0.2); Platelet Count 194 K/mm3 (150-400); RDW Coefficient Variation 13.8 % (11.7-14.2); RDW Standard Deviation 41.3 fL (35.1-46.3)
[2025-04-22 07:16] LABS: Alanine Aminotransfer (ALT/SGP 35.0 U/L (12-78); Albumin, Blood 3.1 g/dL (3.4-5.0); Albumin/Globulin Ratio 0.9 (0.8-1.8); Anion Gap 7.0 mmol/L (3-11); Aspartate Aminotrans (AST/SGOT 42.0 U/L (12-37); Bilirubin, Total 0.3 mg/dL (0.1-1.0); Blood Urea Nitrogen 11.0 mg/dL (8-24); CO2, Blood 30.0 mmol/L (21-32); Calcium, Blood 8.6 mg/dL (8.5-10.1); Chloride, Blood 104.0 mmol/L (98-108); Creatinine, Blood 0.69 mg/dL (0.40-1.00); Globulin, Blood 3.4 g/dL (2.2-4.0); Glucose, Blood 206.0 mg/dL (70-99); Potassium, Blood 3.9 mmol/L (3.5-5.5); Sodium, Blood 137.0 mmol/L (136-145); Total Protein, Blood 6.5 g/dL (6.4-8.2)
[2025-04-22 07:28] VITALS: BP 120/91
[2025-04-22] MEDS ORDERED: Insulin Glargine-Yfgn 100 Unit/mL 3 ML SYR SC ONE (09:00)
[2025-04-22 11:53] VITALS: BP 172/105
[2025-04-22] MEDS ORDERED: OXAYDO5 M1 PO (12:15)
[2025-04-22] MEDS ORDERED: MIRALAX17 GM PO (12:16)
--- NOTE | 2025-04-22 14:58 | NUR ---
DISCHARGE NOTE PT EDUCATED ON DISCHARGE PACKET AND INSTRUCTIONS. MEDS FAXED TO [facility] PER PT REQUEST. VERFIFIED WITH PATIENT THAT SHE DENIES NEED FOR OXYCODONE PRESCRIPTION. DR. GAMA MADE AWARE AND NO HARD SCRIPT WAS FILLED OUT. PT IV REMOVED. [facility] CALLED FOR TRANSPORTATION ARRANGEMENT. ESCORTED DOWN VIA WHEELCHAIR BY SYS DIR TO PATIENT ENTRANCE AT 1458, RIDE TO BE COMING BY AT APPROXIMATELY 1500. NO NEW QUESTIONS OR CONCERNS PRIOR TO DC.
== END 2025-04-22 15:00 | disposition home or self-care (01) | DRG 872 ==
LOC: ER 15:47 → MEDS 21:29 → PCU 21:29 → MEDS 04-17 15:38 → ENPENDDIS 04-22 10:45 → MEDS 04-22 15:00
PROVIDERS: Family Medicine; Internal Medicine; Nurse Practitioner Acute Care; Physician Assistant; ADMIT Internal Medicine
DX: A41.9 Sepsis, unspecified organism (principal); N39.0 Urinary tract infection, site not specified; K57.20 Diverticulitis of large intestine with perforation and abscess without bleeding; K29.70 Gastritis, unspecified, without bleeding; J44.9 Chronic obstructive pulmonary disease, unspecified; E03.9 Hypothyroidism, unspecified; G47.30 Sleep apnea, unspecified; F32.A Depression, unspecified; F41.9 Anxiety disorder, unspecified; D69.6 Thrombocytopenia, unspecified; D64.9 Anemia, unspecified; E87.6 Hypokalemia; G47.33 Obstructive sleep apnea (adult) (pediatric); K31.84 Gastroparesis; Z98.51 Tubal ligation status; Z96.642 Presence of left artificial hip joint; Z90.710 Acquired absence of both cervix and uterus; Z98.890 Other specified postprocedural states; Z88.5 Allergy status to narcotic agent; Z88.1 Allergy status to other antibiotic agents; Z88.2 Allergy status to sulfonamides; Z88.8 Allergy status to other drugs, medicaments and biological substances; Z79.84 Long term (current) use of oral hypoglycemic drugs; Z79.4 Long term (current) use of insulin; Z79.899 Other long term (current) drug therapy; Z88.0 Allergy status to penicillin; Z87.891 Personal history of nicotine dependence; R74.01 Elevation of levels of liver transaminase levels; E10.65 Type 1 diabetes mellitus with hyperglycemia; E10.43 Type 1 diabetes mellitus with diabetic autonomic (poly)neuropathy
CPT/HCPCS: 0202U; 36415; 71046; 74177; 76705; 80048; 80053; 80074; 80202; 81001; 82550; 82728; 82784; 82947; 83540; 83550; 83605; 83615; 83690; 83880; 84443; 85025; 86015; 86038; 86258; 86364; 86707; 87040; 87086; 87340; 87350; 87389; 87637; 93005; 93010; 93975; 94640; 94664; 94760; 96361; 96365; 96367; 96375; 99285-25; A9270; J0696; J0780; J1650; J1815; J1885; J2405; J2470; J3373; J7030; J7050; Q9967

== ENCOUNTER → 2025-05-10 | Outpatient (CLI) | payer OTHER ==
[~2025-05-10] MED LIST changes: +ACYCLOVIR400 MG PO; +AZELASTINE HCL6 ML BOTHEYES; +CARVEDILOL6.25 MG PO; +DOCUZEN 8.6-501 EACH PO; +ESTRADIOL1 M1 PO; +EUTHYROX150 MC1 PO; +FLUTICASONE PRO16 GM; +MELO7.5 PO; +OXAYDO5 M1 PO
== END ==
LOC: LAB 15:25 → LAB SHORT 15:25
DX: N39.0 Urinary tract infection, site not specified (principal)
CPT/HCPCS: 87077; 87086; 87186

== ENCOUNTER 2025-07-08 09:22 | Day surgery (SDC) | payer OTHER | END 2025-07-08 12:29 | disposition home or self-care (01) | LOC: ORSCMMR 09:22 | PROC: 0DJD8ZZ Inspection of Lower Intestinal Tract, Via Natural or Artificial Opening Endoscopic (ICD-10-PCS; principal; 2025-07-08) | DX: K57.30 Diverticulosis of large intestine without perforation or abscess without bleeding (principal); E11.9 Type 2 diabetes mellitus without complications; J44.89 Other specified chronic obstructive pulmonary disease; I10 Essential (primary) hypertension; E78.5 Hyperlipidemia, unspecified; E03.9 Hypothyroidism, unspecified; F41.9 Anxiety disorder, unspecified; F32.A Depression, unspecified; G47.33 Obstructive sleep apnea (adult) (pediatric); I50.9 Heart failure, unspecified; Z79.899 Other long term (current) drug therapy; Z87.891 Personal history of nicotine dependence ==

== ENCOUNTER 2025-07-11 19:04 | Emergency (ER) | payer OTHER ==
[~2025-07-11] VITALS: Ht 149.9 cm; Wt 71.2 kg
[~2025-07-11 19:04] MED LIST changes: +ALOGLIPTIN12.5 M1 PO; +DICLOFENAC SOD100 GM TP; +FASENRA PE30 MG/1 ML SQ; +IBUP800 PO; +LEVOTHYROXINE200 MCG PO; +NITROGLYCERIN0.4 M1 SL; +PRED20 PO; +STIOLTO RESPIMAT4 G1 IH
[2025-07-11 19:17] VITALS: BP 166/111
[2025-07-11] MEDS ORDERED: Ketorolac Tromethamine 15mg Vial IM ONE (19:25)
[2025-07-11] MEDS ORDERED: OxyCODONE 5 mg/Acetamin 325 mg TABLET PO ONE (20:50)
== END 2025-07-11 21:45 | disposition home or self-care (01) ==
LOC: ER 19:04
DX: M54.50 Low back pain, unspecified (principal); G89.29 Other chronic pain; E10.40 Type 1 diabetes mellitus with diabetic neuropathy, unspecified; I50.9 Heart failure, unspecified; E03.9 Hypothyroidism, unspecified; J44.9 Chronic obstructive pulmonary disease, unspecified; G47.33 Obstructive sleep apnea (adult) (pediatric); Z88.0 Allergy status to penicillin; Z88.2 Allergy status to sulfonamides; Z88.5 Allergy status to narcotic agent; Z88.8 Allergy status to other drugs, medicaments and biological substances; Z79.4 Long term (current) use of insulin; Z79.85 Long-term (current) use of injectable non-insulin antidiabetic drugs; Z79.890 Hormone replacement therapy; Z79.899 Other long term (current) drug therapy
CPT/HCPCS: 96372; 99283-25; A9270; J1885

== ENCOUNTER 2025-08-13 10:32 | Day surgery (SDC) | payer OTHER ==
[~2025-08-13] VITALS: Ht 149.9 cm; Wt 68.8 kg
[~2025-08-13 10:32] MED LIST changes: +Lidocaine HCl 2% 10 ML SDA ONE
[2025-08-13] MEDS ORDERED: CeFAZolin Sodium 2,000 MG VIAL ONE (10:49)
[2025-08-13] MEDS ORDERED: HUMULIN R100 UNIT/2 SC (11:02)
[2025-08-13] MEDS ORDERED: Rocuronium Bromide 10 MG/ML 5ML Injection IV ONE ×2 (11:28→12:35)
[2025-08-13] MEDS ORDERED: Insulin Regular 100 UNIT/ML 10ML Vial ONE (11:50)
[2025-08-13] MEDS ORDERED: Lidocaine HCl 2% 10 ML SDA ONE (12:16)
[2025-08-13] MEDS ORDERED: FentaNYL Citrate 50 MCG/ML 2 ML Injection ONE (12:19)
[2025-08-13] MEDS ORDERED: Ondansetron HCl 2 MG / ML 2ML Vial ONE ×2 (12:35→15:16)
[2025-08-13] MEDS ORDERED: Metoclopramide HCl 5MG / ML 2ML Vial ONE ×2 (12:35→15:25)
[2025-08-13] MEDS ORDERED: Phenylephrine HCl 100 MCG/ML-NS 10MLSYR (1MG/10ML) ONE (12:53)
[2025-08-13] MEDS ORDERED: Bupivacaine 0.5% W/EPI 1:200000 SDV 30 ML Vial ONE (13:13)
[2025-08-13] MEDS ORDERED: Sugammadex Sodium 200 MG/2ML SDV (100 MG/ML) ONE (14:57)
--- NOTE | 2025-08-13 15:15 | NUR ---
08/13/25 1515 MILTON HERRON RATES PAIN 8/10, NAUSEA MODERATE, PER PT VERBAL REPORT
[2025-08-13] MEDS ORDERED: Morphine Sulfate 4 MG/1 ML Injection ONE (15:20)
[2025-08-13] MEDS ORDERED: HYDROcodone 5-APAP 325 TAB ONE (15:40)
--- NOTE | 2025-08-13 15:45 | NUR ---
08/13/25 1545 MILTON HERRON TOLERATING CRANBERRYJUICE AND APPLESAUCE
[2025-08-13 16:07] VITALS: BP 117/80
== END 2025-08-13 16:39 | disposition home or self-care (01) ==
LOC: ORSCSDS 10:32
PROVIDERS: Podiatrist Foot & Ankle Surgery
PROC: 0QSQ04Z Reposition Right Toe Phalanx with Internal Fixation Device, Open Approach (ICD-10-PCS; principal; 2025-08-13 12:00)
PROC: 0L8V0ZZ Division of Right Foot Tendon, Open Approach (ICD-10-PCS; principal; 2025-08-13 12:00)
PROC: 0SGM04Z Fusion of Right Metatarsal-Phalangeal Joint with Internal Fixation Device, Open Approach (ICD-10-PCS; principal; 2025-08-13 12:00)
DX: M20.11 Hallux valgus (acquired), right foot (principal); M20.41 Other hammer toe(s) (acquired), right foot; I25.10 Atherosclerotic heart disease of native coronary artery without angina pectoris; I50.9 Heart failure, unspecified; Z79.899 Other long term (current) drug therapy; E11.40 Type 2 diabetes mellitus with diabetic neuropathy, unspecified; Z96.41 Presence of insulin pump (external) (internal); Z79.85 Long-term (current) use of injectable non-insulin antidiabetic drugs; Z79.84 Long term (current) use of oral hypoglycemic drugs; E03.9 Hypothyroidism, unspecified; E78.5 Hyperlipidemia, unspecified; G47.33 Obstructive sleep apnea (adult) (pediatric); J44.89 Other specified chronic obstructive pulmonary disease; F41.9 Anxiety disorder, unspecified; F32.A Depression, unspecified; Z87.891 Personal history of nicotine dependence
CPT/HCPCS: 82947; A6253; A9270; C1713; J0690; J1815; J2003; J2270; J2371; J2405; J2704; J2765; J3010; J7120